=== PATIENT | female | born 1950 | race Caucasian/White ===

== ENCOUNTER → 2017-05-31 09:47 | Outpatient (CLI) | payer MEDICARE, SELFPAY ==
--- NOTE | 2017-05-31 09:57 | RAD_ITS ---
STUDY: X-RAY - LEFT KNEE REASON FOR EXAM: Female, 66 years old. polyosteoarthritis TECHNIQUE: 4 view(s) of the knee. COMPARISON: None. FINDINGS: Normal visualized distal femur. Normal visualized proximal tibia and fibula. Normal proximal tibiofibular articulation. Normal medial femorotibial compartment. There is mild degenerative arthrosis of the lateral femorotibial compartment. There is mild degenerative arthrosis of the patellofemoral articulation. There is a soft tissue prominence in the suprapatellar region suggesting a small volume joint effusion. Calcified opacities are seen at the posterior aspect of the knee joint suggesting intra-articular loose body largest measures approximately 9 mm. The soft tissue structures are unremarkable. RAD/Knee 4 or More Views IMPRESSION: Effusion, as described above. Calcified opacities are seen at the posterior aspect of the knee joint suggesting intra-articular loose body largest measures approximately 9 mm. Electronically Signed: Joe Norris MD at 1:21 EDT Tel , Service support ,
[2017-05-31 12:15] LABS: Absolute Lymphocyte Count 2.27 X10^3/ul (0.83-4.51); Absolute Neutrophil Count 4.2 X10^3/uL (2.0-7.7); Basophil# 0.03 X10^3/uL; Basophil% 0.4 % (0-1); Eosinophils% 2.8 % (0-5); Hematocrit 42.5 % (37-47); Hemoglobin 13.7 g/dl (12.0-15.0); Lymphocyte # 2.27 X10^3/ul (4.0); Lymphocyte % 31.4 % (19-41); Mean Corp Hgb Conc 32.2 g/gl (32-36); Mean Corpuscular Hgb 30.5 pg (27.0-32.0); Mean Corpuscular Volume 94.7 fL (81-99); Monocyte# 0.49 X10^3/uL; Monocyte% 6.8 % (0-10); Neutrophil # 4.24 X10^3/uL (2.7-7.7); Neutrophil % 58.6 % (47-70); Platelet Count 317 K/mm3 (150-450); RBC Distribution Width CV 13.4 % (11.6-14.6); RBC Distribution Width SD 46.4 fl (35.1-43.9); Red Blood Count 4.49 M/mm3 (4.2-5.4); White Blood Count 7.2 K/mm3 (4.4-11.0)
[2017-05-31 12:16] LABS: POSITIVE COUNT NO; POSITIVE DIFFERENTIAL NO; POSITIVE MORPHOLOGY NO
[2017-05-31 12:30] LABS: Erythrocyte Sedimentation Rate 6 mm/hr (0-30)
[2017-05-31 12:42] LABS: AST(SGOT) 17 U/L (15-37); Alanine Aminotransfer ALT/SGPT 22 U/L (13-56); Albumin, Serum 3.8 g/dL (3.2-5.0); Alkaline Phosphatase 52 U/L (45-117); Anion Gap 8 (5-15); BUN 12 mg/dL (7-18); CRP 5.34 mg/L (0.0-3.0); Chloride 106 mmol/L (98-107); Creatinine, Serum 0.67 mg/dL (0.55-1.02); EST Glomerular Filtration Rate 93 mL/min (>60); Est Glom Filt Rate - Afr Amer 113 mL/min (>60); Globulin 3.9 g/dL (2.2-4.2); Glucose 85 mg/dL (74-106); Potassium 3.7 mmol/L (3.5-5.1); Protein, Total 7.7 g/dL (6.4-8.2); Rheumatoid Factor < 10.0 IU/mL (<15); Sodium Level 143 mmol/L (136-145)
[2017-06-01 14:07] LABS: SJOGREN'S Anti-SS-A test < 0.2 AI (0.0-0.9); SJOGREN'S Anti-SS-B test < 0.2 AI (0.0-0.9)
[2017-06-01 18:26] LABS: ANTINUCLEAR ANTIBODIES DIRECT Negative (Negative)
[2017-06-03 11:18] LABS: CCP IgG Antibodies 3 units (0-19)
== END ==
PROVIDERS: Family Provider Family Medicine; PCP Family Medicine; Visit Provider Internal Medicine Rheumatology
DX: M35.00 Sjogren syndrome, unspecified (principal); M15.9 Polyosteoarthritis, unspecified; M17.12 Unilateral primary osteoarthritis, left knee; K21.9 Gastro-esophageal reflux disease without esophagitis; I10 Essential (primary) hypertension; F32.89 Other specified depressive episodes
CPT/HCPCS: 36415; 73564; 80053; 85025; 85652; 86038; 86140; 86200; 86235; 86431

== ENCOUNTER → 2017-06-24 15:53 | Outpatient (CLI) | payer MEDICARE, SELFPAY | PROVIDERS: Family Provider Family Medicine; PCP Family Medicine; Visit Provider Otolaryngology Otolaryngology/Facial Plastic Surgery | DX: J32.9 Chronic sinusitis, unspecified (principal) | CPT/HCPCS: 87070; 87077; 87186; 87205 ==

== ENCOUNTER → 2017-07-12 06:38 | Outpatient (CLI) | payer MEDICARE, SELFPAY ==
--- NOTE | 2017-07-12 06:42 | CT_ITS ---
STUDY: CT MAXILLOFACIAL SINUSES REASON FOR EXAM: Female, 67 years old. Sinusitis. RADIATION DOSAGE (If Supplied By Facility): CTDIvol = ( 33.06 ) mGy, DLP = ( 817.32 ) mGycm TECHNIQUE: The patient was scanned in a multi detector CT scanner. High resolution axial imaging was performed without the administration of intravenous contrast material. Sagittal and coronal images were reconstructed. Individualized dose optimization techniques were used for this CT. COMPARISON: None. FINDINGS: FRONTAL SINUSES: Normal aeration, without mucosal inflammatory disease. ETHMOIDAL SINUSES: Normal aeration, without mucosal inflammatory disease. MAXILLARY SINUSES: Mild degree of mucosal thickening along the lateral wall of the right maxillary sinus. SPHENOIDAL SINUSES: Normal aeration, without mucosal inflammatory disease. There is patency of the bilateral maxillary infundibuli with normal uncinate processes, ethmoid bullae, and hiatus semilunaris. Normal bilateral middle turbinates. Normal bilateral inferior turbinates. Normal midline nasal septum. There is patency of the bilateral nasal airways. The visualized osseous structures are normal. The visualized bilateral orbital contents are normal. CT/Sinus/Facial Bone IMPRESSION: Mild degree of mucosal thickening of the right maxillary sinus. Electronically Signed: Alberto French MD at 8:53 EDT Tel [phone], Service support ,
== END ==
PROVIDERS: Family Provider Family Medicine; PCP Family Medicine; Visit Provider Otolaryngology Otolaryngology/Facial Plastic Surgery
DX: J32.9 Chronic sinusitis, unspecified (principal)
CPT/HCPCS: 70486

== ENCOUNTER → 2019-09-24 12:32 | Outpatient (CLI) | payer MEDICARE, SELFPAY ==
--- NOTE | 2019-09-24 12:35 | RAD_ITS ---
STUDY: X-RAY - LUMBAR SPINE REASON FOR EXAM: Female, 69 years old. Low back pain TECHNIQUE: AP and lateral view(s) of the lumbar spine were obtained. COMPARISON: None FINDINGS: Normal lumbar lordosis. There is no substantial scoliosis. There is a normal alignment of the vertebrae. There is diffuse demineralization with multi-level endplate spondylosis. There is multi-level degenerative disc disease with multi-level disc space narrowing. The patient is status post left hip replacement. The soft tissue structures are unremarkable. RAD/Lumbar Spine 2 or 3 Views IMPRESSION: Degenerative changes of the spine, as detailed above. Electronically Signed: Alberto French, at 15:46 EDT , Service support ,
== END ==
PROVIDERS: PCP Family Medicine; Referring Provider Anesthesiology Pain Medicine; Visit Provider Anesthesiology Pain Medicine
DX: M54.5 Low back pain (principal)
CPT/HCPCS: 72100

== ENCOUNTER → 2019-10-08 10:43 | Outpatient (CLI) | payer MEDICARE, SELFPAY ==
--- NOTE | 2019-10-08 11:04 | MRI_ITS ---
STUDY: MRI LUMBAR SPINE WITHOUT CONTRAST REASON FOR EXAM: Female, 69 years old. pain across low back , no leg pain x 3 months TECHNIQUE: Standardized fat and water weighted pulse sequences were obtained in the sagittal and axial planes. COMPARISON: X-ray 1020 FINDINGS: T12-L1: Normal endplates. Normal disc height, hydration and morphology. Normal bilateral facet joints. Normal central canal and bilateral lateral recesses. Normal bilateral intervertebral neural foramina. Normal lumbar lordosis. There is no substantial scoliosis. Normal conus medullaris that terminates at the L1. L1-2: Mild bilobed disc protrusion produces mild spinal stenosis and mild left neural foraminal stenosis. L2-3: Moderate bilobed disc protrusion produces moderate spinal stenosis with moderate bilateral lateral recess stenosis with abutment of the L3 nerve roots bilaterally and mild bilateral neural foraminal stenosis. L3-4: Mild bilateral facet hypertrophy with fluid in the facet joints consistent with instability and mild ligament flavum hypertrophy. Moderate broad disc protrusion produces moderate spinal stenosis with moderate bilateral lateral recess stenosis with abutment of the L4 nerve roots bilaterally and mild bilateral neural foraminal stenosis. L4-5: Mild bilateral facet hypertrophy and ligament flavum hypertrophy. Mild broad disc protrusion produces mild spinal stenosis with mild bilateral lateral recess stenosis and mild bilateral neural foraminal stenosis. L5-S1: Normal endplates. Normal disc height, hydration and morphology. Normal bilateral facet joints. Normal central canal and bilateral lateral recesses. Normal bilateral intervertebral neural foramina. Normal visualized sacral ala. Normal visualized paraspinous soft tissue structures. MRI/Spine Lumbar (Routine) IMPRESSION: Multilevel degenerative changes, as described above. Electronically Signed: Carlton Pierre MD at 12:37 EDT Tel , Service support ,
== END ==
PROVIDERS: PCP Family Medicine; Referring Provider Anesthesiology Pain Medicine; Visit Provider Anesthesiology Pain Medicine
DX: M54.9 Dorsalgia, unspecified (principal); M79.606 Pain in leg, unspecified
CPT/HCPCS: 72148

== ENCOUNTER → 2020-04-07 | Outpatient (CLI) | payer MEDICARE, SELFPAY | END | disposition home or self-care (01) | LOC: LABSPEC 15:20 | PROVIDERS: PCP Family Medicine; Referring Provider Otolaryngology Otolaryngology/Facial Plastic Surgery; Visit Provider Otolaryngology Otolaryngology/Facial Plastic Surgery | DX: J32.9 Chronic sinusitis, unspecified (principal) | CPT/HCPCS: 87070; 87205 ==

== ENCOUNTER → 2020-04-14 06:29 | Outpatient (CLI) | payer MEDICARE, SELFPAY ==
--- NOTE | 2020-04-14 06:32 | CT_ITS ---
STUDY: CT MAXILLOFACIAL SINUSES REASON FOR EXAM: Female, 69 years old. SINUSITIUS, BILAT MAXILLARY/FRONTAL PAIN AND PRESSURE, HTN, NO PREV SINUS SURG RADIATION DOSAGE (If Supplied By Facility): CTDIvol = ( 33.06 ) mGy, DLP = ( 697.49 ) mGycm TECHNIQUE: The patient was scanned in a multi detector CT scanner. High resolution axial imaging was performed without the administration of intravenous contrast material. Sagittal and coronal images were reconstructed. Individualized dose optimization techniques were used for this CT. COMPARISON: None. FINDINGS: FRONTAL SINUSES: Normal aeration, without mucosal inflammatory disease. ETHMOIDAL SINUSES: Normal aeration, without mucosal inflammatory disease. MAXILLARY SINUSES: Normal aeration, without mucosal inflammatory disease. SPHENOIDAL SINUSES: Normal aeration, without mucosal inflammatory disease. There is patency of the bilateral maxillary infundibuli with normal uncinate processes, and hiatus semilunaris. Normal bilateral middle turbinates. Normal bilateral inferior turbinates. There is mild septal deviation to the right without a spur. There is patency of the bilateral nasal airways. CT/Sinus/Facial Bone IMPRESSION: The sinuses are clear. Electronically Signed: Leslie Hdz MD at 8:10 EST Tel , Service support ,
== END ==
PROVIDERS: PCP Family Medicine; Referring Provider Otolaryngology Otolaryngology/Facial Plastic Surgery; Visit Provider Otolaryngology Otolaryngology/Facial Plastic Surgery
DX: J32.9 Chronic sinusitis, unspecified (principal)
CPT/HCPCS: 70486

== ENCOUNTER 2021-02-17 12:14 | Outpatient (CLI) | payer MEDICARE, SELFPAY ==
[2021-02-17 14:30] LABS: CRP 3.08 mg/L (0.0-3.0); LDH 220 U/L (84-246)
[2021-02-22 04:06] LABS: Cytoplasmic Ab (C-ANCA) <1:20 titer (Neg:<1:20); Endomysial Antibody IgA Negative (Negative); Immunoglobulin A 145 mg/dL (64-422); Immunoglobulin E 25 IU/mL (6-495); Immunoglobulin G 1128 mg/dL (586-1602)
[2021-02-22 08:01] LABS: Gastrin, Serum 152 pg/mL (0-115); Immunoglobulin M 169 mg/dL (26-217); Perinuclear Ab (P-ANCA) <1:20 titer (Neg:<1:20); t-Transglutaminase IgA <2 U/mL (0-3)
== END 2021-02-17 23:59 | disposition short-term general hospital (02) ==
LOC: LAB 12:17
PROVIDERS: Referring Provider Internal Medicine Gastroenterology; Visit Provider Internal Medicine Gastroenterology
DX: R61 Generalized hyperhidrosis (principal); R19.7 Diarrhea, unspecified
CPT/HCPCS: 36415; 82784; 82785; 82941; 83516; 83615; 86140; 86255; 86256

== ENCOUNTER 2021-02-19 10:31 | Outpatient (CLI) | payer MEDICARE, SELFPAY ==
[2021-02-20 21:45] LABS: Calprotectin, Stool 90 ug/g (0-120); Giardia Lamblia, Stool EIA Negative (Negative)
== END 2021-02-19 23:59 | disposition short-term general hospital (02) ==
LOC: LAB 10:33
PROVIDERS: Visit Provider Nurse Practitioner Adult Health
DX: R19.7 Diarrhea, unspecified (principal)
CPT/HCPCS: 83993; 87177; 87209; 87329; 87493; 87506

== ENCOUNTER 2021-03-24 10:42 | Day surgery (SDC) | payer MEDICARE, SELFPAY ==
[2021-03-24] VITALS (7 sets, daily range): BP systolic 105–154; BP diastolic 44–122; PULSE 58–70; RESP 16; TEMP 36.3–36.9; O2SAT 95–100; BMI 33.4
--- NOTE | 2021-03-24 | IMM_PTH ---
PATIENT: MORGAN SUAREZ LOC: [facility] U#:[id number] AGE/SX: 70/F ROOM: RE03/24/[address]: Dr. Tomas Álvarez DO : 1950 BED: DIS: 03/24/2021 SPEC #: [id number] RECD: 03/25/21 10:20 STATUS: MELISSA AMBERLY #: [id number] RENATO: 03/24/21 00:[address]: Tomas Álvarez DEPT: IMMUNOHISTOCHEMISTRY RECD BY: Gail Hodgson ENTERED: 03/25/21 10:25 SP TYPE: IMMUNO OTHR DR: SONIDO Jamil Tissues: B - Stomach, NOS Procedures: H Pylori (initial) PHYSICIAN & INSTITUTION [place] [id number] SPECIMEN INFORMATION: Tissue Source: B ? Gastric antrum Clinical Info: IBS, diarrhea Specimen Number: [id number] CPT code: 08005 METHODOLOGY: Deparaffinized sections of prefer/formalin-fixed tissue or PAP/DQ stained slides are incubated with monoclonal/polyclonal antibodies/oligonucleotide probes. Localization is made via biotin free immunoperoxidase method. Appropriate controls are performed and reacted as expected. Results on target cell population are indicated in the following table: RESULTS: ANTIBODY / CLONE RESULT Block B H Pylori (polyclonal) negative These tests were developed and their performance characteristics determined by [facility]. They may not have been cleared or approved by the [place]. Food and Drug Administration. The FDA has determined that such clearance or approval is not necessary. INTERPRETATION: B. Gastric antrum, biopsy: Negative for Helicobacter pylori organisms. SJ:emma 03/26/2021
[2021-03-24] MEDS: Lactated Ringers 1,000 ML 15 ML IV (11:15)
--- NOTE | 2021-03-24 12:00 | EGD_PTH ---
PATIENT: MORGAN SUAREZ LOC: [facility] U#:[id number] AGE/SX: 70/F ROOM: RE03/24/[address]: Dr. Tomas Álvarez DO : 1950 BED: DIS: 03/24/2021 SPEC #: [id number] RECD: 03/24/21 16:48 STATUS: MELISSA AMBERLY #: [id number] RENATO: 03/24/21 12:[address]: Tomas Álvarez DEPT: SURGICAL PATHOLOGY RECD BY: Jaquelin Tate ENTERED: 03/25/21 08:49 SP TYPE: EGD BIOPSY OT DR: SONIDO Jamil Tissues: A - Duodenum, NOS B - Gastric mucous membrane C - Gastric mucous membrane D - Esophagus, NOS E - Ileum, NOS F - COLON BIOPSY Procedures: Special Stain Group II Surgery Specimen Level IV Alcian Blue/PAS (control) HEADER OPERATION: Colonoscopy, EGD with biopsies ([facility] [place]) PRE-OP DIAGNOSIS: IBS, diarrhea TISSUE SUBMITTED: A ? Duodenum biopsy, B ? Gastric antrum for H. pylori and path, C ? Gastric body biopsy, D ? Distal esophagus biopsy, E ? Terminal ileum biopsy, F ? Random colon biopsy MICROSCOPIC DIAGNOSIS A. Duodenum, biopsy: Fragments of duodenal mucosa, no pathologic diagnosis. B. Gastric antrum, biopsy: Mild gastritis. See microscopic description and comment. C. Gastric body, biopsy: Mild gastritis. See microscopic description. D. Distal esophagus, biopsy: Fragments of gastroesophageal mucosa with chronic inflammation. Intestinal metaplasia (goblet cell metaplasia) is not identified. See comment. E. Terminal ileum, biopsy: Fragments of small intestinal mucosa, no pathologic diagnosis. See comment. F. Colon, random biopsy: Fragments of colonic mucosa, no pathologic diagnosis. SJ:emma 03/26/2021 COMMENT B. The results of immunohistochemistry for Helicobacter pylori will be reported separately ([id number]). D. Alcian blue/PAS stain with matched control is used in the evaluation of the specimen. The specimen predominantly consists of gastric mucosa. E. Prominent lymphoid aggregates are noted, favor benign. MICROSCOPIC DESCRIPTION Slides are reviewed. B & C. The specimen shows fragments of gastric mucosa with chronic inflammatory cell infiltrates in the lamina propria consisting of lymphocytes and plasma cells, consistent with mild chronic gastritis. GROSS DESCRIPTION A - Received in fixative is one container labeled with the patient's name and designated biopsy duodenum. The specimen consists of multiple irregular fragments of light bermudez soft tissue that in aggregate measure 1 x 0.3 x 0.1 cm. The specimen is totally submitted in one cassette. B - Received in fixative is one container labeled with the patient's name and designated biopsy gastric antrum. The specimen consists of multiple irregular fragments of light bermudez soft tissue that in aggregate measure 0.5 x 0.4 x 0.1 cm. The specimen is totally submitted in one cassette. C - Received in fixative is one container labeled with the patient's name and designated gastric body biopsy. The specimen consists of multiple irregular fragments of light bermudez soft tissue that in aggregate measure 1.3 x 0.3 x 0.1 cm. The specimen is totally submitted in one cassette. D - Received in fixative is one container labeled with the patient's name and designated biopsy distal esophagus. The specimen consists of two irregular fragments of light bermudez soft tissue that in aggregate measure 0.6 x 0.3 x 0.1 cm. The specimen is totally submitted in one cassette. E - Received in fixative is one container labeled with the patient's name and designated biopsy terminal ileum. The specimen consists of two irregular fragments of light bermudez soft tissue that in aggregate measure 0.4 x 0.3 x 0.1 cm. The specimen is totally submitted in one cassette. F - Received in fixative is one container labeled with the patient's name and designated biopsy random colon. The specimen consists of multiple irregular fragments of light bermudez soft tissue that in aggregate measure 1.5 x 0.5 x 0.1 cm. The specimen is totally submitted in one cassette. / SJ:rg 03/25/2021 TC:3 CPT: 69395 x6, 13693
--- NOTE | 2021-03-24 12:22 | PCM.HP.BLA ---
History and Physical Date of Admission: 03/24/21 70 F who presents to the office today for evaluation of diarrhea. She says it has been going on for the past 2 months. She is also having fecal urgency. She has not seen any blood in her stool. Her weight has been stable. However recently she started to having sweating during the day and the night which is becoming concerning to her. She has no family history of bowel issues. She denies any chest pain or shortness of breath. She does complain of some muscle weakness, arthritis and joint discomfort. She denies any recent rash. She is not had any antibiotics since she had her fundoplication. In May 2020 she had hiatal hernia surgery and this has been helpful. Since this time, she has been difficulty with diarrhea and stomach upset. Diarrhea occurs 1-3 times a day and is reported as foamy and yellow. Currently loperamide 4mg TID. Will also get spontaneously nauseous and was restarted omeprazole 40mg QD. Reports Cologuard recently but no stool testing for infection. Unknown of last EGD but thinks it was just prior to surgery. Additional history included acquired hypothyroidism, depression, anxiety, insomnia, HTN, GERD, Gout, Sjogrens. ROS Const Constitutional: Positive for fatigue, frequent falls, weakness and weight change ENT ENT: Positive for nasal congestion and difficulty swallowing Gastro GI: Positive for abdominal pain, bloating, change in bowel habits, diarrhea, difficulty swallowing and nausea/dyspepsia Musc Musculoskeletal: Positive for joint pain, back pain, muscle weakness and Arthritis Neuro Neurology: Positive for weakness and frequent falls Endo Endocrine: Positive for fatigue and weight change Exam Const General: cooperative and comfortable Nutritional Appearance: average body habitus and well nourished [facility] Head: normal to inspection Ears: hearing grossly normal bilaterally Nose: external nose normal Face and sinus: normal facial exam Mouth: oral mucosae normal Throat: posterior oropharynx normal Eyes General: appearance normal, both eyes and all related structures Neck Neck: normal visual inspection Chest Chest palpation & inspection: normal inspection of the chest and normal palpation of entire chest wall Resp Effort & Inspection: normal respiratory effort Auscultation: Bilateral: Clear to Auscultation Cardio Palpation: normal PMI Rate: regular rate Rhythm: regular rhythm GI Inspection: normal to inspection Auscultation: normal bowel sounds Percussion: normal to percussion Palpation: no hepatosplenomegaly Skin General: no rashes or lesions noted Neuro General: patient alert Extrem General: normal to inspection Psych Affect: normal affect Assessment and Plan Assessment and Plan (1) Irritable bowel syndrome: Plan - Dr. Tomas Álvarez, DO: She carries a diagnosis of irritable bowel syndrome. However she has not had any episodes of diarrhea lasting for more than a day. This is most persistent for 2 months and it is getting progressively worse. (2) Diarrhea: Status: Acute Orders: Orders: Colonoscopy Today Dr. Tomas Álvarez, DO EGD Today Dr. Tomas Álvarez DO CDIFF (PCR) Today Laurence Verduzco SUPERVISOR SAMPLE, SUPERVISOR SAMPLE-C ENTERIC PATHOGEN PANEL STOOL Today Laurence Verduzco SUPERVISOR SAMPLE, SUPERVISOR SAMPLE-C CRP Today Dr. Tomas Álvarez, DO LDH Today Dr. Tomas Álvarez DO ANCA Today Dr. Tomas Álvarez, DO Celiac Disease Profile Today Dr. Tomas Álvarez DO Gastrin, Serum Today Dr. Tomas Álvarez DO Immunoglobulin E Today Dr. Tomas Álvarez DO Immunoglobulin G Today Dr. Tomas Álvarez, DO Immunoglobulin M Today Dr. Tomas Álvarez, DO Calprotectin, Stool Today Laurence Verduzco SUPERVISOR SAMPLE, SUPERVISOR SAMPLE-C Ova and Parasites 8623 Today Laurence Verduzco SUPERVISOR SAMPLE, SUPERVISOR SAMPLE-C Giardia Lamblia, Stool EIA Today Laurence Verduzco SUPERVISOR SAMPLE, SUPERVISOR SAMPLE-C Plan - Dr. Tomas Álvarez DO: We will do a biochemical is in his stool also is for infectious, secretory and osmotic diarrhea. We will perform an upper and lower endoscopy to see if there is any signs of inflammatory bowel disease, ischemic disease or chronic blood loss that will be leading to diarrhea. (3) Night sweats: Status: Acute Orders: Orders: CRP Today Dr. Tomas Álvarez, DO LDH Today Dr. Tomas Álvarez DO ANCA Today Dr. Tomas Álvarez, DO Celiac Disease Profile Today Dr. Tomas Álvarez, DO Gastrin, Serum Today Dr. Tomas Álvarez, DO Immunoglobulin E Today Dr. Tomas Álvarez, DO Immunoglobulin G Today Dr. Tomas Álvarez, DO Immunoglobulin M Today Dr. Tomas Álvarez DO Plan - Dr. Tomas Álvarez DO: We will check an LDH check. Likely she will need a CT scan of the chest and abdomen pelvis for further evaluation. Plan Details Other Medications: New: [id number] 140-9-5.2 gram (Plenvu) take as directed for bowel prep PO; [address] Marin Friend, DO I have re-examined the patient. There are no clinical changes since date of exam.
--- NOTE | 2021-03-24 12:38 | OP.CCLET_ITS ---
11/02/2021 Jason Jamil Re : Upper GI endoscopy procedure for Shari Simmons Dear Mamadou This procedure was performed on Wednesday, March 24, 2021. My impressions and recommendations are as follows: Impressions : - LA Grade A reflux esophagitis. Rule out Davis's esophagus. Biopsied. - Gastritis. Biopsied. - Normal second portion of the duodenum. Biopsied. Recommendations : - Discharge patient to home. - Resume previous diet. - Continue present medications. - Await pathology results. - Repeat upper endoscopy in 1 year for surveillance. - Return to GI office. My findings are described in the full procedure note, which is enclosed. If I can be of further assistance, please feel free to contact me at . Sincerely, Tomas Álvarez, 03/24/2021 12:37:31 PM This report has been signed electronically.
--- NOTE | 2021-03-24 12:38 | OP.EGD_ITS ---
Patient Name: Shari Simmons Procedure Date: 03/24/2021 11:54 AM Date of : 1950 Age: 70 Procedure: Upper GI endoscopy Indications: Epigastric abdominal pain Providers: Tomas Álvarez DO Referring MD: Jason Jamil Medicines: See the Anesthesia note for documentation of the administered medications Patient Profile: This is a 70 year old female. Refer to note in patient chart for documentation of history and physical. Patient has symptoms of chronic abdominal cramping and acute epigastric abdominal pain. Complications: No immediate complications. Procedure: Pre-Anesthesia Assessment: - Prior to the procedure, a History and Physical was performed, and patient medications and allergies were reviewed. The risks and benefits of the procedure and the sedation options and risks were discussed with the patient. All questions were answered and informed consent was obtained. Patient identification and proposed procedure were verified by the physician in the pre-procedure area. Mental Status Examination: alert and oriented. Airway Examination: normal oropharyngeal airway and neck mobility. Respiratory Examination: clear to auscultation. CV Examination: normal. Prophylactic Antibiotics: The patient does not require prophylactic antibiotics. Prior Anticoagulants: The patient has taken no previous anticoagulant or antiplatelet agents. ASA Grade Assessment: II - A patient with mild systemic disease. After reviewing the risks and benefits, the patient was deemed in satisfactory condition to undergo the procedure. The anesthesia plan was to use moderate sedation / analgesia (conscious sedation). Immediately prior to administration of medications, the patient was re-assessed for adequacy to receive sedatives. The heart rate, respiratory rate, oxygen saturations, blood pressure, adequacy of pulmonary ventilation, and response to care were monitored throughout the procedure. The physical status of the patient was re-assessed after the procedure. After obtaining informed consent, the endoscope was passed under direct vision. Throughout the procedure, the patient's blood pressure, pulse, and oxygen saturations were monitored continuously. The gastroscope was introduced through the mouth, and advanced to the second part of duodenum. The upper GI endoscopy was accomplished without difficulty. The patient tolerated the procedure well. Moderate Sedation: Moderate (conscious) sedation was administered by the endoscopy nurse and supervised by the endoscopist. The following parameters were monitored: oxygen saturation, heart rate, blood pressure, and response to care. Total physician intraservice time was 2 minutes. Scope In: 12:26:55 PM Scope Out: 12:34:00 PM Total Procedure Duration Time 0 hours 7 minutes 5 seconds Findings: LA Grade A (one or more mucosal breaks less than 5 mm, not extending between tops of 2 mucosal folds) esophagitis with no bleeding was found 34 to 35 cm from the incisors. Biopsies were taken with a cold forceps for histology. Verification of patient identification for the specimen was done. Estimated blood loss was minimal. Scattered mild inflammation characterized by congestion (edema) and erythema was found in the gastric body and in the gastric antrum. Biopsies were taken with a cold forceps for histology. Verification of patient identification for the specimen was done. Estimated blood loss was minimal. The second portion of the duodenum was normal. Biopsies were taken with a cold forceps for histology. Verification of patient identification for the specimen was done. Estimated blood loss was minimal. Impression: - LA Grade A reflux esophagitis. Rule out Davis's esophagus. Biopsied. - Gastritis. Biopsied. - Normal second portion of the duodenum. Biopsied. Recommendation: - Discharge patient to home. - Resume previous diet. - Continue present medications. - Await pathology results. - Repeat upper endoscopy in 1 year for surveillance. - Return to GI office. Procedure Code(s): --- Professional --- 55700, Esophagogastroduodenoscopy, flexible, transoral; with biopsy, single or multiple CPT copyright 2017 [employer]. All rights reserved. The codes documented in this report are preliminary and upon member of parliament review may be revised to meet current compliance requirements. Tomas Álvarez DO 03/24/2021 12:37:31 PM This report has been signed electronically. Number of Addenda: 1 Note Initiated On: 03/24/2021 11:54 AM Addendum Number: 1 Addendum Date: 11/02/2021 6:53:24 AM MAC was used for sedation during this procedure. Tomas Álvarez DO 11/02/2021 6:53:31 AM This report has been signed electronically.
--- NOTE | 2021-03-24 13:11 | OP.CCLET_ITS ---
11/02/2021 Jason Jamil Re : Colonoscopy procedure for Shari Simmons Dear Mamadou This procedure was performed on Wednesday, March 24, 2021. My impressions and recommendations are as follows: Impressions : - Congested mucosa in the cecum. - Congested mucosa in the recto-sigmoid colon, in the descending colon and in the ascending colon. Biopsied. - Diverticulosis in the recto-sigmoid colon and in the sigmoid colon. There was no evidence of diverticular bleeding. - Congested mucosa in the terminal ileum. Biopsied. Recommendations : - Written discharge instructions were provided to the patient. - The signs and symptoms of potential delayed complications were discussed with the patient. - Patient has a contact number available for emergencies. - Return to normal activities tomorrow. - Resume previous diet. - Continue present medications. - Await pathology results. - Return to my office. - Repeat colonoscopy is recommended for surveillance. The colonoscopy date will be determined after pathology results from today's exam become available for review. My findings are described in the full procedure note, which is enclosed. If I can be of further assistance, please feel free to contact me at . Sincerely, Tomas Álvarez, 03/24/2021 1:11:00 PM This report has been signed electronically.
--- NOTE | 2021-03-24 13:11 | OP.COLON_ITS ---
Patient Name: Shari Simmons Procedure Date: 03/24/2021 12:36 PM Date of : 1950 Age: 70 Procedure: Colonoscopy Indications: Clinically significant diarrhea of unexplained origin Providers: Tomas Álvarez DO Referring MD: Jason Jamil Medicines: See the Anesthesia note for documentation of the administered medications Patient Profile: This is a 70 year old female. Refer to note in patient chart for documentation of history and physical. Patient has symptoms of chronic abdominal cramping and acute epigastric abdominal pain. Last Colonoscopy: date unknown. Unable to locate last colonoscopy report. Complications: No immediate complications. Procedure: Pre-Anesthesia Assessment: - Prior to the procedure, a History and Physical was performed, and patient medications and allergies were reviewed. The risks and benefits of the procedure and the sedation options and risks were discussed with the patient. All questions were answered and informed consent was obtained. Patient identification and proposed procedure were verified by the physician in the pre-procedure area. Mental Status Examination: alert and oriented. Airway Examination: normal oropharyngeal airway and neck mobility. Respiratory Examination: clear to auscultation. CV Examination: normal. Prophylactic Antibiotics: The patient does not require prophylactic antibiotics. Prior Anticoagulants: The patient has taken no previous anticoagulant or antiplatelet agents. ASA Grade Assessment: II - A patient with mild systemic disease. After reviewing the risks and benefits, the patient was deemed in satisfactory condition to undergo the procedure. The anesthesia plan was to use moderate sedation / analgesia (conscious sedation). Immediately prior to administration of medications, the patient was re-assessed for adequacy to receive sedatives. The heart rate, respiratory rate, oxygen saturations, blood pressure, adequacy of pulmonary ventilation, and response to care were monitored throughout the procedure. The physical status of the patient was re-assessed after the procedure. After I obtained informed consent, the scope was passed under direct vision. Throughout the procedure, the patient's blood pressure, pulse, and oxygen saturations were monitored continuously. The pediatric colonoscope was introduced through the anus and advanced to the terminal ileum. The colonoscopy was performed without difficulty. The patient tolerated the procedure well. The quality of the bowel preparation was good. Moderate Sedation: Moderate (conscious) sedation was administered by the endoscopy nurse and supervised by the endoscopist. The patient's oxygen saturation, heart rate, blood pressure and response to care were monitored. Total physician intraservice time was 15 minutes. Moderate (conscious) sedation was administered by the endoscopy nurse and supervised by the endoscopist. The following parameters were monitored: oxygen saturation, heart rate, blood pressure, and response to care. Total physician intraservice time was 15 minutes. Scope In: 12:39:42 PM Scope Withdrawal Time 0 hours 18 minutes 55 seconds Scope Out: 1:03:26 PM Total Procedure Duration Time 0 hours 23 minutes 44 seconds Findings: The perianal and digital rectal examinations were normal. An area of congested mucosa was found in the cecum. An area of mildly congested mucosa was found in the recto-sigmoid colon, in the descending colon and in the ascending colon. Biopsies were taken with a cold forceps for histology. Verification of patient identification for the specimen was done. Estimated blood loss was minimal. Multiple small and large-mouthed diverticula were found in the recto-sigmoid colon and sigmoid colon. There was no evidence of diverticular bleeding. A scattered area of the terminal ileum was congested. Biopsies were taken with a cold forceps for histology. Verification of patient identification for the specimen was done. Estimated blood loss was minimal. Impression: - Congested mucosa in the cecum. - Congested mucosa in the recto-sigmoid colon, in the descending colon and in the ascending colon. Biopsied. - Diverticulosis in the recto-sigmoid colon and in the sigmoid colon. There was no evidence of diverticular bleeding. - Congested mucosa in the terminal ileum. Biopsied. Recommendation: - Written discharge instructions were provided to the patient. - The signs and symptoms of potential delayed complications were discussed with the patient. - Patient has a contact number available for emergencies. - Return to normal activities tomorrow. - Resume previous diet. - Continue present medications. - Await pathology results. - Return to my office. - Repeat colonoscopy is recommended for surveillance. The colonoscopy date will be determined after pathology results from today's exam become available for review. Procedure Code(s): --- Professional --- 97612, Colonoscopy, flexible; with biopsy, single or multiple 07863, 59, Moderate sedation services provided by the same physician or other qualified health care provider performing the diagnostic or therapeutic service that the sedation supports, requiring the presence of an independent trained observer to assist in the monitoring of the patient's level of consciousness and physiological status; initial 15 minutes of intraservice time, patient age 5 years or older 45548, 59, Moderate sedation services provided by the same physician or other qualified health care provider performing the diagnostic or therapeutic service that the sedation supports, requiring the presence of an independent trained observer to assist in the monitoring of the patient's level of consciousness and physiological status; initial 15 minutes of intraservice time, patient age 5 years or older CPT copyright 2017 [employer]. All rights reserved. The codes documented in this report are preliminary and upon neonatal nurse practitioner review may be revised to meet current compliance requirements. Tomas Álvarez DO 03/24/2021 1:11:00 PM This report has been signed electronically. Number of Addenda: 1 Note Initiated On: 03/24/2021 12:36 PM Addendum Number: 1 Addendum Date: 11/02/2021 6:53:38 AM MAC was used for sedation during this procedure. Tomas Álvarez DO 11/02/2021 6:53:42 AM This report has been signed electronically.
== END 2021-03-24 23:59 | disposition home or self-care (01) ==
LOC: EN 10:42 → AC 10:43
PROVIDERS: Visit Provider Internal Medicine Gastroenterology
PROC: 0DJD8ZZ Inspection of Lower Intestinal Tract, Via Natural or Artificial Opening Endoscopic (ICD-10-PCS; CPT 45378; principal; 2021-03-24 11:55)
DX: K29.70 Gastritis, unspecified, without bleeding (principal); K57.30 Diverticulosis of large intestine without perforation or abscess without bleeding; K22.70 Barrett's esophagus without dysplasia; K21.00 Gastro-esophageal reflux disease with esophagitis, without bleeding; K58.9 Irritable bowel syndrome, unspecified; M19.90 Unspecified osteoarthritis, unspecified site; I10 Essential (primary) hypertension; Z79.899 Other long term (current) drug therapy
CPT/HCPCS: 45380; 43239; 88305; 88313; 88342; J7120; J2405

== ENCOUNTER 2021-04-09 10:52 | Outpatient (CLI) | payer MEDICARE, SELFPAY ==
[2021-04-10 11:27] LABS: Immunoglobulin A 138 mg/dL (64-422)
[2021-04-10 17:07] LABS: Endomysial Antibody IgA Negative (Negative)
[2021-04-10 17:28] LABS: Deamidated Gliadin IgA 5 units (0-19); Deamidated Gliadin IgG 2 units (0-19); Immunoglobulin A 136 mg/dL (64-422); t-Transglutaminase IgA <2 U/mL (0-3)
[2021-04-12 13:36] LABS: H. PYLORI STOOL AG Negative (Negative)
[2021-04-13 20:22] LABS: Fats, Neutral Normal (.); Fats, Total Normal (.)
== END 2021-04-09 23:59 | disposition home or self-care (01) ==
PROVIDERS: Referring Provider Internal Medicine Gastroenterology; Visit Provider Internal Medicine Gastroenterology
DX: K29.60 Other gastritis without bleeding (principal); R19.7 Diarrhea, unspecified
CPT/HCPCS: 36415; 82705; 82784; 83516; 86255

== ENCOUNTER → 2021-06-12 | Outpatient (CLI) | payer MEDICARE, SELFPAY ==
--- NOTE | 2021-06-12 08:18 | CT_ITS ---
STUDY: CT ABDOMEN WITH AND WITHOUT CONTRAST REASON FOR EXAM: Female, 71 years old. Pancreatic insuffiencey and diarrhea -- CT with pancreatic protocol RADIATION DOSAGE (If Supplied By Facility): CTDIvol = ( 19.14 ) mGy, DLP = ( 1390.03 ) mGycm TECHNIQUE: Transaxial images were obtained pre and post I.V. administration of Oral and amp; IV Readi-CAT and amp; 100mL Isovue-370, and oral contrast. Sagittal and coronal images were reconstructed. Individualized dose optimization techniques were used for this CT. COMPARISON: None. FINDINGS: The visualized lung bases are unremarkable. The visualized portions of the heart are within normal limits. There is decreased attenuation of the liver consistent with steatosis. The patient is status post cholecystectomy. Normal spleen. Normal pancreas. Normal bilateral adrenal glands. Normal right kidney. Normal left kidney. There is a small hiatal hernia. Normal small intestine. Normal colon. The appendix is visualized and appears normal. There is diffuse atherosclerotic calcification of the abdominal aorta and its major visceral branches, without a demonstrated aneurysm. Normal inferior vena cava. Normal retroperitoneum. There is a small umbilical hernia containing fat. There are mild degenerative changes of the visualized lumbar spine. CT/Abdomen W/WO IV Contrast IMPRESSION: The patient is status post cholecystectomy and hysterectomy. Fatty infiltration of the liver. Electronically Signed: Alberto French MD at 10:55 EDT ,
[2021-06-12 10:10] LABS: CREATININE FINGERSTICK 0.6 mg/dL (0.55-1.02); EGFR FINGERSTICK > 60.0000 mL/min (>60)
== END | disposition home or self-care (01) ==
LOC: CT 08:16
PROVIDERS: Referring Provider Internal Medicine Gastroenterology; Visit Provider Internal Medicine Gastroenterology
DX: R19.7 Diarrhea, unspecified (principal)
CPT/HCPCS: 74170; Q9967

== ENCOUNTER → 2021-09-16 | Outpatient (CLI) | payer MEDICARE, SELFPAY ==
[2021-09-16 08:34] LABS: Erythrocyte Sedimentation Rate 13 mm/hr (0-30)
[2021-09-16 08:36] LABS: Absolute Lymphocyte Count 2.18 X10^3/uL (0.83-4.51); Absolute Neutrophil Count 3.3 X10^3/uL (2.0-7.7); Basophil# 0.08 X10^3/uL; Basophil% 1.3 % (0-1); Eosinophil# 0.22 X10^3/uL; Eosinophils% 3.4 % (0-5); Hematocrit 38.7 % (37-47); Hemoglobin 12.5 g/dL (12.0-15.0); Lymphocyte # 2.18 X10^3/ul (0.83-4.51); Lymphocyte % 34.1 % (19-41); Mean Corp Hgb Conc 32.3 g/dL (32-36); Mean Corpuscular Hgb 30.4 pg (27.0-32.0); Mean Corpuscular Volume 94.2 fL (81-99); Mean Platelet Vol. 10.9 fl (6.2-12.0); Monocyte% 9.4 % (0-10); NRBC Flagged by Analyzer 0 % (0-5); Neutrophil % 51.6 % (47-70); Platelet Count 327 K/mm3 (150-450); RBC Distribution Width CV 14.3 % (11.6-14.6); RBC Distribution Width SD 49.6 fl (35.1-43.9); Red Blood Count 4.11 M/mm3 (4.2-5.4); White Blood Count 6.4 K/mm3 (4.4-11.0)
[2021-09-16 08:54] LABS: ALB/GLOB Ratio 0.9 RATIO (0.9-2.4); AST(SGOT) 24 U/L (15-37); Alanine Aminotransfer ALT/SGPT 29 U/L (13-56); Albumin, Serum 3.4 g/dL (3.2-5.0); Alkaline Phosphatase 60 U/L (45-117); Anion Gap 4 (5-15); BUN 17 mg/dL (7-18); BUN/Creat Ratio 24.5 RATIO (10-20); CRP 3.33 mg/L (0.0-3.0); Calcium,Total 8.7 mg/dL (8.5-10.1); Chloride 106 mmol/L (98-107); EST Glomerular Filtration Rate 88 mL/min (>60); Est Glom Filt Rate - Afr Amer 106 mL/min (>60); Globulin 3.7 g/dL (2.2-4.2); Glucose 74 mg/dL (74-106); LDH 201 U/L (84-246); Potassium 3.6 mmol/L (3.5-5.1); Protein, Total 7.1 g/dL (6.4-8.2); Sodium Level 140 mmol/L (136-145)
[2021-09-17 13:08] LABS: Anti-Centromere B Ab <0.2 AI (0.0-0.9); Anti-Chromatin <0.2 AI (0.0-0.9); Anti-Jo <0.2 AI (0.0-0.9); Anti-Scleroderma-70 AB 0.3 AI (0.0-0.9); RNP Ab <0.2 AI (0.0-0.9); SJOGREN'S Anti-SS-A test < 0.2 AI (0.0-0.9); SJOGREN'S Anti-SS-B test < 0.2 AI (0.0-0.9); Smith Ab <0.2 AI (0.0-0.9)
[2021-09-17 16:27] LABS: Anti-dsDNA Ab 1 IU/mL (0-9)
[2021-09-18 16:09] LABS: Albumin 3.5 g/dL (2.9-4.4); Alpha-1-Globulins 0.3 g/dL (0.0-0.4); Alpha-2-Globulins 0.7 g/dL (0.4-1.0); Gamma Globulin 1.1 g/dL (0.4-1.8); Immunoglobulin A 134 mg/dL (64-422); Immunoglobulin G 972 mg/dL (586-1602); Immunoglobulin M 164 mg/dL (26-217); PROEL- TOTAL PROTEIN 6.6 g/dL (6.0-8.5)
[2021-09-18 16:44] LABS: Gastrin, Serum 26 pg/mL (0-115)
== END | disposition home or self-care (01) ==
LOC: LAB 07:43
PROVIDERS: Referring Provider Internal Medicine Gastroenterology; Visit Provider Internal Medicine Gastroenterology
DX: R19.7 Diarrhea, unspecified (principal)
CPT/HCPCS: 36415; 80053; 82784; 82941; 83615; 84165; 85025; 85652; 86140; 86225; 86235; 86334

== ENCOUNTER → 2021-09-17 | Outpatient (CLI) | payer MEDICARE, SELFPAY | END | disposition home or self-care (01) | LOC: LABSPEC 09:44 | PROVIDERS: Referring Provider Internal Medicine Gastroenterology; Visit Provider Internal Medicine Gastroenterology | DX: R19.7 Diarrhea, unspecified (principal) | CPT/HCPCS: 83630 ==

== ENCOUNTER 2021-12-28 11:28 | Outpatient (CLI) | payer MEDICARE, SELFPAY ==
--- NOTE | 2021-12-28 13:30 | ST.MBS ---
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 Medical History: Patient is a 71yo female w/ PMH including pancreatic insufficiency, lymphocytic gastritis, gastric reflux, hiatal hernia repair (2020) and hypertension. Patient reports having appt. w/ Dr. Álvarez next week. Her swallowing difficulty is characterized by sensation of food getting caught in the throat or upper esophagus. Patient and daughter report that occasionally the sensation will cause patient to gag, cough or choke. States no specific foods or drinks causes this swallowing difficulty. Patient states she tries to clear sensation w/ thin liquids which is somewhat effective. Current Diet Ordered: Regular textures / Thin liquids Dentition: WNL, Natural Teeth Mental Status: WNL Respiratory Status: Oxygenating on Room Air - Penetration-Aspiration Scale Penetration-Aspiration Scale: OBJECTIVE ASSESSMENT OF SWALLOW FUNCTION (QUANTITATIVE ? PER TRIAL): PENETRATION / ASPIRATION SCALE (MALAVE): 1 = does not enter airway 2 = enters airway/above vocal folds/ejected 3 = enters airway/above vocal folds/not ejected 4 = enters airway/contacts vocal folds/ejected 5 = enters airway/contacts vocal folds/not ejected 6 = enters airway/below vocal folds/ejected 7 = enters airway/below vocal folds/not ejected despite effort 8 = enters airway/below vocal folds/no effort VIDEOFLOROSCOPIC SCALE SCORE (MALAVE): Grade I = aspiration of material that has penetrated into the laryngeal vestibule, intact cough reflex Grade II = aspiration < 10 % of the bolus, intact cough reflex Grade III = aspiration of < 10 % of the bolus, reduced cough reflex or aspiration of > 10 % of the bolus, intact cough reflex Grade IV = aspiration of > 10 % of the bolus, reduced cough reflex - Penetration-Aspiration Scale Score Thin Liquid via teaspoon Result: 1= does not enter airway Thin Liquid via teaspoon Trial 2 Result: 1= does not enter airway Thin Liquid via large single sip from cup Result: 1= does not enter airway [place] Thick Liquid via large single sip from cup Result: 1= does not enter airway [place] Thick Liquid via small single sip from cup Result: 1= does not enter airway Pudding Result: 1= does not enter airway Cookie Result: 1= does not enter airway Thin Liquid via single sip from straw Result: 1= does not enter airway - Oral Phase Labial Seal: No Labial Escape Tongue Control During Bolus Hold: Posterior escape of greater than half of bolus Bolus Preparation/Mastication: Timely and efficient chewing and mashing Bolus Transport/Lingual Motion: Delayed initiation of tongue motion Oral Residue: Trace residue lining oral structures - Pharyngeal Phase Initiation of Pharyngeal Swallow: Bolus head in pyriforms Soft Palate Elevation: No bolus between soft palate and pharyngeal wall Laryngeal Elevation: Comp. Superior move thyroid cart w/comp. apprx arytenoid cart-epig pet Anterior Hyoid Excursion: Partial anterior movement Epiglottic Movement: Partial inversion Laryngeal Vestibule Closure at Height of Swallow: Complete; no air/contrast in laryngeal vestibule Pharyngeal Stripping Wave: Present - complete Pharyngoesophageal Segment Opening: Complete distension and complete duration; no obstruction of flow Tongue Base Retraction: Trace column of contrast between tongue base & post. pharyngeal wall Pharyngeal Residue: Trace residue within or on pharyngeal structures - Esophageal Phase Esophageal Clearance: Esophageal retention w/ retrograde flow below pharyngoesophageal seg. - Diagnosis/Impression Diagnosis: Oropharyngeal swallow function grossly WNL Impression: Overall patient's oropharyngeal swallow function is grossly within normal limits. Patient was observed taking large bolus size w/ various consistencies w/ posterior loss to the pyriforms prior to swallow onset. Mildly decreased anterior hyoid excursion and partial epiglottic inversion. Adequate laryngeal elevation and maintained complete closure of the laryngeal vestibule. No aspiration or penetration was observed across all consistencies throughout the study. Trace oral and pharyngeal residue after the swallow observed likely attributed to large bolus size. Min retention of pudding in upper esophagus which was not cleared w/ use of additional pudding trial and/or liquid wash. Patient belching after study was completed. - Recommendations Diet: Regular Textures, Thin Liquids Compensatory Strategies: Small Bites, Small Sips, Slow Rate, Alternate bites/solids and sips/liquids, Sitting upright, Remain sitting upright for 30 minutes after PO intake, Minimize/decrease distractions Recommend Repeat Modified Barium Swallow: No Need for Skilled Speech Therapy Services: No Recommended Referrals: GI Consult - Keep dougietDelores mena/ Dr. Álvarez next week Education Completed: 1. Described result of evaluation. - Status Active ST Patient: Active - Contact Information [facility]:: Sarahi Steiner M.A., CCC-DEVELOPMENT[employer]SEM[employer]ER Speech-Language Pathologist [facility] [address] [place] [address] [email or web address] [phone] 12/28/21 14:15
== END 2021-12-28 23:59 | disposition home or self-care (01) ==
PROVIDERS: Visit Provider Internal Medicine Gastroenterology
DX: R13.10 Dysphagia, unspecified (principal)
CPT/HCPCS: 74230; 92611

== ENCOUNTER → 2022-02-01 | Outpatient (CLI) | payer MEDICARE, SELFPAY | END | disposition home or self-care (01) | LOC: LABSPEC 15:07 | PROVIDERS: Visit Provider Otolaryngology Otolaryngology/Facial Plastic Surgery | DX: J32.8 Other chronic sinusitis (principal) | CPT/HCPCS: 87070; 87077; 87186; 87205 ==

== ENCOUNTER 2022-03-04 10:44 | Day surgery (SDC) | payer MEDICARE, SELFPAY ==
[2022-03-04] VITALS (7 sets, daily range): BP systolic 115–139; BP diastolic 44–82; PULSE 60–73; RESP 16; TEMP 36.1–37.3; O2SAT 92–97; BMI 33.5
[2022-03-04] MEDS: Lactated Ringers 1,000 ML 15 ML IV (11:19)
--- NOTE | 2022-03-04 11:28 | PCM.HP.BLA ---
History and Physical Date of Admission: 03/04/22 SHARI BATES, is a 71 F who presents to the office today for Follow up visit. Shari established with this clinic 02.17.21 for evaluation of diarrhea for several months with urgency. Fundoplication performed . PMH acquired hypothyroidism, depression, anxiety, insomnia, HTN, GERD, Gout, Sjogrens. PSH Maggie with 270 fundoplication ; cholecystectomy; hysterectomy. Esophageal manometry 05.08.20 noting Low LES pressure; weak peristalsis in one swallow. Overall normal manometry. EGD 05.08.20 4cm hiatal hernia with Hook deployed noting increased acid exposure in upright position on day 1 and in upright and supine position on day 2 with positive correlation to reported symptoms. Biochemical workup elevated CRP 3.08 and gastrin 152. GAME, ANCA, LDH and celiac testing WNL Stool studies 02.19.21 With elastase low 86. EGD and colonoscopy performed 03.24.21. EGD found LA grade A reflux esophagitis without metaplasia; gastritis. H.Pylori negative. ?Colonoscopy found congested mucosa in recto-sigmoid colon, descending colon, ascending colon and terminal ileum; diverticulosis in recto-sigmoid colon and sigmoid colon without evidence of bleed. Biopsy ? No pathologic diagnosis in terminal or colon biopsies. Prominent lymphoid aggregates. ?Omeprazole 40mg BID and Carafate TID started. CT abd/pel with pancreatic protocol 06.12.21 hepatic steatosis; small hiatal hernia. Shari called 09.14.21 to report that she was continuing to have worsening diarrhea. Recommended utilizing Lomotil BID routine with one PRN administration. Biochemical workup ordered CBC, ESR, CMP, gastrin, IgGAM, VITALY, LDH, LUANN comp without pertinent abnormality CRP H3.33 Stool lactoferrin WNL Upper GI 10.06.21 [facility] noting small sliding hiatal hernia with mucosal ring; small duodenal diverticulum; no evidence of reflux. Contact 11.12.21 to report that she was continuing to have loose stools and an upset stomach despite use of colestipol and Creon. Budesonide 9mg QD started. Shari called 12.14.21 to ask if there was any update regarding her dysphagia. Recommended swallow study as Recent EGD did not show etiology. Diarrhea continued and colestipol stopped and cholestyramine started. Barium swallow 12.28.21 Esophageal clearance: esophageal retention with retrograde flow below pharyngeoesophageal seg. Orophagyngeal swallow function grossly WNL. Plan last visit 05.22.21: Lymphocytic gastritis ? Carafate therapy completed. PPI continues. No identification of lymphocytic gastritis diagnosis. Pancreatic insufficiency ? presumptive diagnosis r/t low fecal elastase. Start Creon. Shari is doing well overall. Continues to have some minimal difficulty with swallowing. Intermittent nausea is also a difficulty in the morning, but passes quickly. Diarrhea has resolved with use of questran. ROS Const Constitutional: No fatigue, malaise, night sweats, weight change, sleep problems, abnormal sleep pattern or change in appetite ENT ENT: No difficulty swallowing, hoarseness or sore throat Cardio Cardiology: No chest pain at rest Gastro GI: No abdominal pain, belching, bloating, change in bowel habits, change in stool character, coffee ground emesis, constipation, cramping, heartburn, difficulty swallowing, feeling full early, excessive flatus, incontinent of stools, Vomiting blood/hematemesis, Blood in stool, loose stools, Black,tarry stools, pain with swallowing, vomiting or other Musc Musculoskeletal: No joint pain Skin Skin: No yellowing of the eye or itchy eyes Neuro Neurology: No behavioral changes Psych Psychiatric: No abnormal sleep pattern, No anxiety, No behavioral changes, No change in appetite and No depression Endo Endocrine: No fatigue or weight change Aller/Imm Allergy/Immunologic: No itchy eyes Rey/Lymp Hematologic/Lymphatic: No easy bleeding or easy bruising Exam Const General: cooperative and comfortable Nutritional Appearance: average body habitus and well nourished [facility] Head: normal to inspection Ears: hearing grossly normal bilaterally Nose: external nose normal Face and sinus: normal facial exam Mouth: oral mucosae normal Throat: posterior oropharynx normal Eyes General: appearance normal, both eyes and all related structures Neck Neck: normal visual inspection Chest Chest palpation & inspection: normal inspection of the chest and normal palpation of entire chest wall Resp Effort & Inspection: normal respiratory effort Auscultation: Bilateral: Clear to Auscultation Cardio Palpation: normal PMI Rate: regular rate Rhythm: regular rhythm GI Inspection: normal to inspection Auscultation: normal bowel sounds Percussion: normal to percussion Palpation: no hepatosplenomegaly Skin General: no rashes or lesions noted Neuro General: patient alert Extrem General: normal to inspection Psych Affect: normal affect Quality Reporting Tobacco Screening ([facility] 138) Smoking Status: Never smoker Assessment and Plan Assessment and Plan (1) Difficulty swallowing: ?Status:?Chronic ?Plan: She likely has an esophageal ring secondary to Schatzki's ring versus eosinophilic esophagitis versus elements of a sliding hiatal hernia.? She will undergo an upper endoscopy to evaluate upper GI tract with possible dilation and biopsies of the distal esophagus. (2) Pancreatic insufficiency: ?Status:?Chronic ?Plan: She will continue to take pancreatic enzymes with each meal and snacks as previously ordered.? In approximate 6 months time we can recheck her fecal elastase to make sure she is showing improvement as we try to titrate the medicine. (3) Diarrhea: ?Status:?Chronic ?Plan: Induced diarrhea is responding very well to cholestyramine therapy.? She will continue that twice daily basis.? She is not suffering any side effects from the medicine as of today. ? ? ? Medications: Refilled cholestyramine (with sugar) 4 gram ?? avoid other meds within 1hr before or 4-6hr after dose 4 grams PO BID 60 ea 11RF ? ? Discontinued budesonide ER ?? Discontinued Reason:? Order Completed 3 mg? PO DAILY 90 ea 5RF ? ? I have examined the patient and the H&P has been reviewed. There are no clinical changes since date of exam.
--- NOTE | 2022-03-04 12:15 | EGD_PTH ---
PATIENT: MORGAN SUAREZ LOC: EN U#:[id number] AGE/SX: 71/F ROOM: RE03/04/[address]: Dr. Tomas Álvarez DO : 1950 BED: DIS: 03/04/2022 SPEC #: [id number] RECD: 03/04/22 15:17 STATUS: MELISSA AMBERLY #: [id number] RENATO: 03/04/22 12:[address]: Tomas Álvarez DEPT: SURGICAL PATHOLOGY RECD BY: Jaquelin Tate ENTERED: 03/05/22 09:35 SP TYPE: EGD BIOPSY OT DR: SONIDO Jamil Tissues: Esophagus, NOS Procedures: Special Stain Group II Surgery Specimen Level IV Alcian Blue/PAS (control) HEADER OPERATION: [place] with biopsies and dilatation PRE-OP DIAGNOSIS: Difficulty swallowing, pancreatic insufficiency, diarrhea TISSUE SUBMITTED: Distal esophagus biopsy MICROSCOPIC DIAGNOSIS Distal esophagus, biopsy: Gastroesophageal junctional mucosa with chronic inflammation. Changes of reflux. No evidence of goblet cell metaplasia. See comment. AM:emma 03/08/2022 COMMENT Alcian blue/PAS stain with matched control supports the above diagnosis. MICROSCOPIC DESCRIPTION Slides are reviewed. GROSS DESCRIPTION Received in fixative is one container labeled with the patient's name and designated distal esophagus biopsy. The specimen consists of one irregular fragment of light bermudez soft tissue that measures 0.3 x 0.3 x 0.1 cm. The specimen is totally submitted in one cassette. / SJ:emma 03/05/2022 TC:3 CPT: 25564, 28280
--- NOTE | 2022-03-04 12:23 | OP.EGD_ITS ---
Patient Name: Shari Simmons Procedure Date: 03/04/2022 11:58 AM Date of : 1950 Age: 71 Procedure: Upper GI endoscopy Indications: Dysphagia Providers: Tomas Álvarez DO Referring MD: Tomas Álvarez DO Medicines: Monitored Anesthesia Care Patient Profile: This is a 71 year old female. Refer to note in patient chart for documentation of history and physical. Patient has symptoms of dysphagia with solids. Complications: No immediate complications. Procedure: Pre-Anesthesia Assessment: - Prior to the procedure, a History and Physical was performed, and patient medications and allergies were reviewed. The patient is competent. The risks and benefits of the procedure and the sedation options and risks were discussed with the patient. All questions were answered and informed consent was obtained. Patient identification and proposed procedure were verified by the physician in the pre-procedure area. Mental Status Examination: alert and oriented. Airway Examination: normal oropharyngeal airway and neck mobility. Respiratory Examination: clear to auscultation. CV Examination: normal. Prophylactic Antibiotics: The patient does not require prophylactic antibiotics. Prior Anticoagulants: The patient has taken no previous anticoagulant or antiplatelet agents. ASA Grade Assessment: II - A patient with mild systemic disease. After reviewing the risks and benefits, the patient was deemed in satisfactory condition to undergo the procedure. The anesthesia plan was to use monitored anesthesia care (MAC). Immediately prior to administration of medications, the patient was re-assessed for adequacy to receive sedatives. The heart rate, respiratory rate, oxygen saturations, blood pressure, adequacy of pulmonary ventilation, and response to care were monitored throughout the procedure. The physical status of the patient was re-assessed after the procedure. After obtaining informed consent, the endoscope was passed under direct vision. Throughout the procedure, the patient's blood pressure, pulse, and oxygen saturations were monitored continuously. The gastroscope was introduced through the mouth, and advanced to the second part of duodenum. The upper GI endoscopy was accomplished without difficulty. The patient tolerated the procedure well. Scope In: 12:10:18 PM Scope Out: 12:13:50 PM Total Procedure Duration Time 0 hours 3 minutes 32 seconds Findings: Abnormal motility was noted at the cricopharyngeus. The cricopharyngeus was abnormal. There is spasticity of the esophageal body. The distal esophagus/lower esophageal sphincter is open. Primary peristaltic waves are noted. A guidewire was placed and the scope was withdrawn. Dilation was performed with a Savary dilator with no resistance at 51 Fr. The dilation site was examined and showed mild improvement in luminal narrowing. Estimated blood loss was minimal. The Z-line was irregular and was found 38 cm from the incisors. Biopsies were taken with a cold forceps for histology. Verification of patient identification for the specimen was done. Estimated blood loss was minimal. No other significant abnormalities were identified in a careful examination of the stomach. The cardia and gastric fundus were normal on retroflexion. The first portion of the duodenum was normal. Impression: - Abnormal esophageal motility, suspicious for esophageal spasm. Dilated. - Z-line irregular, 38 cm from the incisors. Biopsied. - Normal first portion of the duodenum. Recommendation: - Discharge patient to home. - Resume previous diet. - Continue present medications. - Await pathology results. Procedure Code(s): --- Professional --- 14479, Esophagogastroduodenoscopy, flexible, transoral; with insertion of guide wire followed by passage of dilator(s) through esophagus over guide wire 00200, 59, Esophagogastroduodenoscopy, flexible, transoral; with biopsy, single or multiple CPT copyright 2017 [employer]. All rights reserved. The codes documented in this report are preliminary and upon emergency medical technician/driver review may be revised to meet current compliance requirements. Tomas Álvarez DO 03/04/2022 12:22:47 PM This report has been signed electronically. Number of Addenda: 0 Note Initiated On: 03/04/2022 11:58 AM
--- NOTE | 2022-03-04 12:23 | OP.CCLET_ITS ---
03/04/2022 Jason Jamil Re : Upper GI endoscopy procedure for Shari Simmons Dear Mamadou This procedure was performed on February. My impressions and recommendations are as follows: Impressions : - Abnormal esophageal motility, suspicious for esophageal spasm. Dilated. - Z-line irregular, 38 cm from the incisors. Biopsied. - Normal first portion of the duodenum. Recommendations : - Discharge patient to home. - Resume previous diet. - Continue present medications. - Await pathology results. My findings are described in the full procedure note, which is enclosed. If I can be of further assistance, please feel free to contact me at . Sincerely, Tomas Álvarez, 03/04/2022 12:22:47 PM This report has been signed electronically.
== END 2022-03-04 13:08 | disposition home or self-care (01) ==
LOC: EN 10:45 → AC 10:48
PROVIDERS: Referring Provider Internal Medicine Gastroenterology; Visit Provider Internal Medicine Gastroenterology
PROC: 0DJ08ZZ Inspection of Upper Intestinal Tract, Via Natural or Artificial Opening Endoscopic (ICD-10-PCS; CPT 43235; principal; 2022-03-04 12:10)
DX: R13.10 Dysphagia, unspecified (principal); K86.89 Other specified diseases of pancreas; R19.7 Diarrhea, unspecified
CPT/HCPCS: 43239; 43248; 88305; 88313; J7120; C1769; J2405

== ENCOUNTER 2022-03-19 07:00 | Day surgery (SDC) | payer MEDICARE, SELFPAY ==
[2022-03-19 07:20] VITALS: BP 138/119; PULSE 62; RESP 16; TEMP 36.1; O2SAT 96
[2022-03-19] MEDS: Lidocaine Jelly 2% 20 ML Syringe (URO-JET) 1 APPLIC (07:30)
== END 2022-03-19 07:50 | disposition home or self-care (01) ==
PROVIDERS: Referring Provider Internal Medicine Gastroenterology; Visit Provider Internal Medicine Gastroenterology
PROC: F00ZJWZ Instrumental Swallowing and Oral Function Assessment using Swallowing Equipment (ICD-10-PCS; CPT 43235; principal; 2022-03-19 07:25)
DX: K22.4 Dyskinesia of esophagus (principal)
CPT/HCPCS: 91010

== ENCOUNTER → 2022-03-30 | Outpatient (CLI) | payer MEDICARE, SELFPAY | END | disposition home or self-care (01) | LOC: LABSPEC 15:54 | PROVIDERS: Visit Provider Otolaryngology Otolaryngology/Facial Plastic Surgery | DX: J02.9 Acute pharyngitis, unspecified (principal) | CPT/HCPCS: 87070; 87077 ==

== ENCOUNTER 2022-04-29 07:57 | Day surgery (SDC) | payer MEDICARE, SELFPAY ==
[2022-04-29] VITALS (12 sets, daily range): BP systolic 109–145; BP diastolic 58–82; PULSE 60–67; RESP 16–18; TEMP 36.6–36.8; O2SAT 93–100; BMI 33.7
[2022-04-29] MEDS: Lactated Ringers 1,000 ML 15 ML IV (09:01)
[2022-04-29] MEDS: 0.9% Saline Lock 10 ML Syringe IV (09:29)
[2022-04-29] MEDS: 0.9% Normal Saline (Pres. free 10 ML Vial (09:29)
--- NOTE | 2022-04-29 09:30 | HP.PCM_ITS ---
History and Physical Date of Admission: 04/29/22 SHARI BATES, is a 71 F who presents to the office today for Follow up visit. Shari established with this clinic 02.17.21 for evaluation of diarrhea for several months with urgency. Fundoplication performed . PMH acquired hypothyroidism, depression, anxiety, insomnia, HTN, GERD, Gout, Sjogrens. PSH Maggie with 270 fundoplication ; cholecystectomy; hysterectomy. Esophageal manometry 05.08.20 noting Low LES pressure; weak peristalsis in one swallow. Overall normal manometry. EGD 05.08.20 4cm hiatal hernia with Hook deployed noting increased acid exposure in upright position on day 1 and in upright and supine position on day 2 with positive correlation to reported symptoms. Biochemical workup elevated CRP 3.08 and gastrin 152. GAME, ANCA, LDH and celiac testing WNL Stool studies 02.19.21 With elastase low 86. EGD and colonoscopy performed 03.24.21. EGD found LA grade A reflux esophagitis without metaplasia; gastritis. H.Pylori negative. ?Colonoscopy found congested mucosa in recto-sigmoid colon, descending colon, ascending colon and terminal ileum; diverticulosis in recto-sigmoid colon and sigmoid colon without evidence of bleed. Biopsy ? No pathologic diagnosis in terminal or colon biopsies. Prominent lymphoid aggregates. ?Omeprazole 40mg BID and Carafate TID started. CT abd/pel with pancreatic protocol 06.12.21 hepatic steatosis; small hiatal hernia. Shari called 09.14.21 to report that she was continuing to have worsening diarrhea. Recommended utilizing Lomotil BID routine with one PRN administration. Biochemical workup ordered CBC, ESR, CMP, gastrin, IgGAM, VITALY, LDH, LUANN comp without pertinent abnormality CRP H3.33 Stool lactoferrin WNL Upper GI 10.06.21 [facility] noting small sliding hiatal hernia with mucosal ring; small duodenal diverticulum; no evidence of reflux. Contact 11.12.21 to report that she was continuing to have loose stools and an upset stomach despite use of colestipol and Creon. Budesonide 9mg QD started. Shari called 12.14.21 to ask if there was any update regarding her dysphagia. Recommended swallow study as Recent EGD did not show etiology. Diarrhea continued and colestipol stopped and cholestyramine started. Barium swallow 12.28.21 Esophageal clearance: esophageal retention with retrograde flow below pharyngeoesophageal seg. Orophagyngeal swallow function grossly WNL. Plan last visit 05.22.21: Lymphocytic gastritis ? Carafate therapy completed. PPI continues. No identification of lymphocytic gastritis diagnosis. Pancreatic insufficiency ? presumptive diagnosis r/t low fecal elastase. Start Creon. Shari is doing well overall. Continues to have some minimal difficulty with swallowing. Intermittent nausea is also a difficulty in the morning, but passes quickly. Diarrhea has resolved with use of questran. ROS Const Constitutional: No fatigue, malaise, night sweats, weight change, sleep problems, abnormal sleep pattern or change in appetite ENT ENT: No difficulty swallowing, hoarseness or sore throat Cardio Cardiology: No chest pain at rest Gastro GI: No abdominal pain, belching, bloating, change in bowel habits, change in stool character, coffee ground emesis, constipation, cramping, heartburn, difficulty swallowing, feeling full early, excessive flatus, incontinent of stools, Vomiting blood/hematemesis, Blood in stool, loose stools, Black,tarry stools, pain with swallowing, vomiting or other Musc Musculoskeletal: No joint pain Skin Skin: No yellowing of the eye or itchy eyes Neuro Neurology: No behavioral changes Psych Psychiatric: No abnormal sleep pattern, No anxiety, No behavioral changes, No change in appetite and No depression Endo Endocrine: No fatigue or weight change Aller/Imm Allergy/Immunologic: No itchy eyes Rey/Lymp Hematologic/Lymphatic: No easy bleeding or easy bruising Exam Const General: cooperative and comfortable Nutritional Appearance: average body habitus and well nourished [facility] Head: normal to inspection Ears: hearing grossly normal bilaterally Nose: external nose normal Face and sinus: normal facial exam Mouth: oral mucosae normal Throat: posterior oropharynx normal Eyes General: appearance normal, both eyes and all related structures Neck Neck: normal visual inspection Chest Chest palpation & inspection: normal inspection of the chest and normal palpation of entire chest wall Resp Effort & Inspection: normal respiratory effort Auscultation: Bilateral: Clear to Auscultation Cardio Palpation: normal PMI Rate: regular rate Rhythm: regular rhythm GI Inspection: normal to inspection Auscultation: normal bowel sounds Percussion: normal to percussion Palpation: no hepatosplenomegaly Skin General: no rashes or lesions noted Neuro General: patient alert Extrem General: normal to inspection Psych Affect: normal affect Quality Reporting Tobacco Screening ([facility] 138) Smoking Status: Never smoker Assessment and Plan Assessment and Plan (1) Difficulty swallowing: ?Status:?Chronic ?Plan: She likely has an esophageal ring secondary to Schatzki's ring versus eosinophilic esophagitis versus elements of a sliding hiatal hernia.? She will undergo an upper endoscopy to evaluate upper GI tract with possible dilation and biopsies of the distal esophagus. (2) Pancreatic insufficiency: ?Status:?Chronic ?Plan: She will continue to take pancreatic enzymes with each meal and snacks as previously ordered.? In approximate 6 months time we can recheck her fecal e lastase to make sure she is showing improvement as we try to titrate the medicine. (3) Diarrhea: ?Status:?Chronic ?Plan: Induced diarrhea is responding very well to cholestyramine therapy.? She will continue that twice daily basis.? She is not suffering any side effects from the medicine as of today. ? ? ? Medications: Refilled cholestyramine (with sugar) 4 gram ?? avoid other meds within 1hr before or 4-6hr after dose? 4 grams PO BID 60 ea 11RF? Discontinued budesonide ER ?? Discontinued Reason:? Order Completed? 3 mg? PO DAILY 90 ea 5RF? I have examined the patient and the H&P has been reviewed. There are no clinical changes since date of exam.
[2022-04-29] MEDS: Botulinum Toxin A 100 Units Vial IJ (09:33)
--- NOTE | 2022-04-29 09:43 | OP.CCLET_ITS ---
04/29/2022 Jason Jamil Re : Upper GI endoscopy procedure for Shari Simmons Dear Mamadou This procedure was performed on April. My impressions and recommendations are as follows: Impressions : - Abnormal esophageal motility, established esophageal spasm. Injected with botulinum toxin. - Normal stomach. - Normal second portion of the duodenum. - No specimens collected. Recommendations : - Discharge patient to home. - Resume previous diet. - Continue present medications. My findings are described in the full procedure note, which is enclosed. If I can be of further assistance, please feel free to contact me at . Sincerely, Tomas Álvarez, 04/29/2022 9:42:41 AM This report has been signed electronically.
--- NOTE | 2022-04-29 09:43 | OP.EGD_ITS ---
Patient Name: Shari Simmons Procedure Date: 04/29/2022 9:15 AM Date of : 1950 Age: 71 Procedure: Upper GI endoscopy Indications: Dysphagia Providers: Tomas Álvarez DO Referring MD: Jason Jamil Medicines: Monitored Anesthesia Care Patient Profile: This is a 71 year old female. Refer to note in patient chart for documentation of history and physical. Patient has symptoms of chronic chest pain, dysphagia with both liquids and solids and chronic nausea. Complications: No immediate complications. Procedure: Pre-Anesthesia Assessment: - Prior to the procedure, a History and Physical was performed, and patient medications and allergies were reviewed. The risks and benefits of the procedure and the sedation options and risks were discussed with the patient. All questions were answered and informed consent was obtained. Patient identification and proposed procedure were verified by the physician in the pre-procedure area. Mental Status Examination: alert and oriented. Airway Examination: normal oropharyngeal airway and neck mobility. Respiratory Examination: clear to auscultation. CV Examination: normal. Prophylactic Antibiotics: The patient does not require prophylactic antibiotics. Prior Anticoagulants: The patient has taken no previous anticoagulant or antiplatelet agents. ASA Grade Assessment: II - A patient with mild systemic disease. After reviewing the risks and benefits, the patient was deemed in satisfactory condition to undergo the procedure. The anesthesia plan was to use monitored anesthesia care (MAC). Immediately prior to administration of medications, the patient was re-assessed for adequacy to receive sedatives. The heart rate, respiratory rate, oxygen saturations, blood pressure, adequacy of pulmonary ventilation, and response to care were monitored throughout the procedure. The physical status of the patient was re-assessed after the procedure. After obtaining informed consent, the endoscope was passed under direct vision. Throughout the procedure, the patient's blood pressure, pulse, and oxygen saturations were monitored continuously. The gastroscope was introduced through the mouth, and advanced to the second part of duodenum. The upper GI endoscopy was accomplished without difficulty. The patient tolerated the procedure well. Scope In: 9:28:13 AM Scope Out: 9:37:03 AM Total Procedure Duration Time 0 hours 8 minutes 50 seconds Findings: Abnormal motility was noted in the esophagus. The cricopharyngeus was abnormal. There is spasticity and extra peristaltic waves of the esophageal body. The distal esophagus/lower esophageal sphincter is spastic, but gives up passage to the endoscope. Tertiary peristaltic waves are noted. Area was successfully injected with 100 units botulinum toxin. The entire examined stomach was normal. The cardia and gastric fundus were normal on retroflexion. The second portion of the duodenum was normal. Impression: - Abnormal esophageal motility, established esophageal spasm. Injected with botulinum toxin. - Normal stomach. - Normal second portion of the duodenum. - No specimens collected. Recommendation: - Discharge patient to home. - Resume previous diet. - Continue present medications. Procedure Code(s): --- Professional --- 28482, Esophagogastroduodenoscopy, flexible, transoral; with directed submucosal injection(s), any substance CPT copyright 2017 [employer]. All rights reserved. The codes documented in this report are preliminary and upon bullet assembly press operator review may be revised to meet current compliance requirements. Tomas Álvarez DO 04/29/2022 9:42:41 AM This report has been signed electronically. Number of Addenda: 0 Note Initiated On: 04/29/2022 9:15 AM
== END 2022-04-29 11:21 | disposition home or self-care (01) ==
LOC: EN 08:01 → AC 08:02
PROVIDERS: Visit Provider Internal Medicine Gastroenterology
PROC: 0DJ08ZZ Inspection of Upper Intestinal Tract, Via Natural or Artificial Opening Endoscopic (ICD-10-PCS; CPT 43235; principal; 2022-04-29 09:10)
DX: K22.4 Dyskinesia of esophagus (principal); K86.89 Other specified diseases of pancreas; R19.7 Diarrhea, unspecified; E03.9 Hypothyroidism, unspecified; I10 Essential (primary) hypertension; M10.9 Gout, unspecified; Z90.49 Acquired absence of other specified parts of digestive tract; K44.9 Diaphragmatic hernia without obstruction or gangrene; R11.0 Nausea; Z96.642 Presence of left artificial hip joint; R07.9 Chest pain, unspecified; K21.9 Gastro-esophageal reflux disease without esophagitis; K22.89 Other specified disease of esophagus; R13.10 Dysphagia, unspecified
CPT/HCPCS: 43236; J7120; A4216; J0585; J2405; J3490

== ENCOUNTER 2022-09-21 12:05 | Day surgery (SDC) | payer MEDICARE, SELFPAY ==
[2022-09-21 12:26] VITALS: BP 123/61; PULSE 57; RESP 18; TEMP 35.6; O2SAT 98; BMI 32.8
[2022-09-21] MEDS: Lactated Ringers 1,000 ML 15 ML IV (12:40)
--- NOTE | 2022-09-21 12:51 | PCM.HP.BLA ---
History and Physical Date of Admission: 09/21/22 MORGAN BATES, is a 72 F who presents to the office today for PMH acquired hypothyroidism, depression, anxiety, insomnia, HTN, GERD, Gout, Sjogrens. PSH Maggie with 270 fundoplication ; cholecystectomy; hysterectomy. Prior Dysphagia workup: Esophageal manometry 05.08.20 noting Low LES pressure; weak peristalsis in one swallow. Overall normal manometry. EGD 05.08.20 4cm hiatal hernia with Hook deployed noting increased acid exposure in upright position on day 1 and in upright and supine position on day 2 with positive correlation to reported symptoms. *[facility] established clinic 02.17.21 for evaluation of diarrhea for several months with urgency. Fundoplication performed . Biochemical workup elevated CRP 3.08 and gastrin 152. GAME, ANCA, LDH and celiac testing WNL Stool studies 02.19.21 With elastase low 86. EGD and colonoscopy 03.24.21. EGD found LA grade A reflux esophagitis without metaplasia; gastritis. H.Pylori negative. Colonoscopy found congested mucosa in recto-sigmoid colon, descending colon, ascending colon and terminal ileum; diverticulosis in recto-sigmoid colon and sigmoid colon without evidence of bleed. Biopsy ? No pathologic diagnosis in terminal or colon biopsies. Prominent lymphoid aggregates. Omeprazole 40mg BID and Carafate TID started. OV 04.07.21 CT abd/pel with pancreatic protocol 06.12.21 hepatic steatosis; small hiatal hernia. Contact 09.14.21 to report that she was continuing to have worsening diarrhea. Recommended utilizing Lomotil BID routine with one PRN administration. Biochemical workup Biochemical workup CBC, ESR, CMP, gastrin, IgGAM, VITALY, LDH, LUANN comp without pertinent abnormality CRP H3.33 Stool lactoferrin WNL General Surgeon Dr. Loyola ordered Upper GI 10.06.21 [facility] noting small sliding hiatal hernia with mucosal ring; small duodenal diverticulum; no evidence of reflux. Contact 11.12.21 to report that she was continuing to have loose stools and an upset stomach despite use of colestipol and Creon. Budesonide 9mg QD started. Contact 12.14.21 to ask if there was any update regarding her dysphagia. Recommended swallow study as Recent EGD did not show etiology. Diarrhea continued and colestipol stopped and cholestyramine started. Barium swallow 12.28.21 Esophageal clearance: esophageal retention with retrograde flow below pharyngoesophageal seg. Oropharyngeal swallow function grossly WNL. OV 01.05.22 Dysphagia ? EGD. EPI ? continue enzymes. Diarrhea ? continue cholestyramine, Stop budesonide. EGD 03.04.22 noting abnormal esophageal motility, spasm; irregular Zline 38cm. Esophageal Manometry 03.19.22 noting EGJ outflow obstruction, median IRP 20.4. OV 03.29.22 Each time she eats she will be doing fine with swallowing, will then have pain substernal/lower esophagus and regurgitate her food without emesis. Feels her bowel are doing well and are now food triggered with symptoms. Contact 06.14.22 with increased belching and bloating; start doxycycline for suspected SIBO. OV 06.24.22 noting improvement of belching and mild improvement of bloating. Typically gets yeast infection from antibiotic use and would like a prescription for this on hand. Quality Reporting Tobacco Screening ([facility] 138) Smoking Status: Never smoker Assessment and Plan Assessment and Plan (1) Pancreatic insufficiency: Status: Chronic Plan: She will continue to take pancreatic enzymes with each meal and snacks as previously ordered. In approximate 6 months time we can recheck her fecal elastase to make sure she is showing improvement as we try to titrate the medicine. (2) Difficulty swallowing: Status: Chronic Plan: She likely has an esophageal ring secondary to Schatzki's ring versus eosinophilic esophagitis versus elements of a sliding hiatal hernia. She will undergo an upper endoscopy to evaluate upper GI tract with possible dilation and biopsies of the distal esophagus with botox. (3) Diarrhea: Status: Chronic Plan: Induced diarrhea is responding very well to cholestyramine therapy. She will continue that twice daily basis. She is not suffering any side effects from the medicine as of today. I have examined the patient and the H&P has been reviewed. There are no clinical changes since date of exam.
[2022-09-21] MEDS: 0.9% Normal Saline (Pres. free 10 ML Vial (13:31)
[2022-09-21] MEDS: Botulinum Toxin A 100 Units Vial IJ (13:53)
[2022-09-21] MEDS: 0.9% Saline Lock 10 ML Syringe IV (13:54)
[2022-09-21 14:00] VITALS: BP 117/63; BP 123/61; PULSE 70; RESP 18; TEMP 36.2; O2SAT 95
--- NOTE | 2022-09-21 14:04 | OP.EGD_ITS ---
Patient Name: Shari Simmons Procedure Date: 09/21/2022 1:40 PM Date of : 1950 Age: 72 Procedure: Upper GI endoscopy Indications: Dysphagia Providers: Tomas Álvarez DO Referring MD: Jason Jamil Medicines: Monitored Anesthesia Care Patient Profile: This is a 72 year old female. Refer to note in patient chart for documentation of history and physical. Patient has symptoms of dysphagia with both liquids and solids. Complications: No immediate complications. Procedure: Pre-Anesthesia Assessment: - Prior to the procedure, a History and Physical was performed, and patient medications and allergies were reviewed. The patient is competent. The risks and benefits of the procedure and the sedation options and risks were discussed with the patient. All questions were answered and informed consent was obtained. Patient identification and proposed procedure were verified by the physician in the pre-procedure area. Mental Status Examination: alert and oriented. Airway Examination: normal oropharyngeal airway and neck mobility. Respiratory Examination: clear to auscultation. CV Examination: normal. Prophylactic Antibiotics: The patient does not require prophylactic antibiotics. Prior Anticoagulants: The patient has taken no previous anticoagulant or antiplatelet agents. After reviewing the risks and benefits, the patient was deemed in satisfactory condition to undergo the procedure. The anesthesia plan was to use monitored anesthesia care (MAC). Immediately prior to administration of medications, the patient was re-assessed for adequacy to receive sedatives. The heart rate, respiratory rate, oxygen saturations, blood pressure, adequacy of pulmonary ventilation, and response to care were monitored throughout the procedure. The physical status of the patient was re-assessed after the procedure. After obtaining informed consent, the endoscope was passed under direct vision. Throughout the procedure, the patient's blood pressure, pulse, and oxygen saturations were monitored continuously. The gastroscope was introduced through the mouth, and advanced to the second part of duodenum. The upper GI endoscopy was accomplished without difficulty. The patient tolerated the procedure well. Scope In: 1:48:54 PM Scope Out: 1:56:31 PM Total Procedure Duration Time 0 hours 7 minutes 37 seconds Findings: Abnormal motility was noted in the lower third of the esophagus. The cricopharyngeus was abnormal. There is a decrease in motility of the esophageal body. The distal esophagus/lower esophageal sphincter is patulous. Tertiary peristaltic waves are noted. Area was successfully injected with 100 units botulinum toxin. A small hiatal hernia was present. No other significant abnormalities were identified in a careful examination of the stomach. The second portion of the duodenum was normal. Impression: - Abnormal esophageal motility, consistent with esophageal spasm. Injected with botulinum toxin. - Small hiatal hernia. - Normal second portion of the duodenum. - No specimens collected. Recommendation: - Discharge patient to home. - Resume previous diet. - Continue present medications. Procedure Code(s): --- Professional --- 52547, Esophagogastroduodenoscopy, flexible, transoral; with directed submucosal injection(s), any substance CPT copyright 2017 [employer]. All rights reserved. The codes documented in this report are preliminary and upon cracker sprayer review may be revised to meet current compliance requirements. Tomas Álvarez DO 09/21/2022 2:03:48 PM This report has been signed electronically. Number of Addenda: 0 Note Initiated On: 09/21/2022 1:40 PM
--- NOTE | 2022-09-21 14:04 | OP.CCLET_ITS ---
09/21/2022 Jason Jamil Re : Upper GI endoscopy procedure for Shari Simmons Dear Mamadou This procedure was performed on Wednesday, September 21, 2022. My impressions and recommendations are as follows: Impressions : - Abnormal esophageal motility, consistent with esophageal spasm. Injected with botulinum toxin. - Small hiatal hernia. - Normal second portion of the duodenum. - No specimens collected. Recommendations : - Discharge patient to home. - Resume previous diet. - Continue present medications. My findings are described in the full procedure note, which is enclosed. If I can be of further assistance, please feel free to contact me at . Sincerely, Tomas Álvarez, 09/21/2022 2:03:48 PM This report has been signed electronically.
[2022-09-21 14:05] VITALS: BP 116/48; BP 123/61; PULSE 63; RESP 16; O2SAT 96
[2022-09-21 14:10] VITALS: BP 107/50; BP 123/61; PULSE 61; RESP 18; O2SAT 95
[2022-09-21 14:15] VITALS: BP 123/61; BP 132/64; PULSE 61; RESP 18; TEMP 36.2; O2SAT 94
[2022-09-21 14:42] VITALS: BP 123/61
== END 2022-09-21 14:46 | disposition home or self-care (01) ==
LOC: EN 12:06 → AC 12:08
PROVIDERS: Visit Provider Internal Medicine Gastroenterology
PROC: 0DJ08ZZ Inspection of Upper Intestinal Tract, Via Natural or Artificial Opening Endoscopic (ICD-10-PCS; CPT 43235; principal; 2022-09-21 13:25)
DX: K44.9 Diaphragmatic hernia without obstruction or gangrene (principal); K86.89 Other specified diseases of pancreas; R19.7 Diarrhea, unspecified; R13.10 Dysphagia, unspecified; E03.9 Hypothyroidism, unspecified; I10 Essential (primary) hypertension; K21.9 Gastro-esophageal reflux disease without esophagitis; Z90.49 Acquired absence of other specified parts of digestive tract; K22.4 Dyskinesia of esophagus
CPT/HCPCS: 43236; J7120; A4216; J0585; J2405; J3490

== ENCOUNTER 2022-10-04 08:34 | Outpatient (CLI) | payer MEDICARE, SELFPAY ==
[2022-10-07 18:07] LABS: Beef <0.10 kU/L (Class 0); Chocolate <0.10 kU/L (Class 0); Corn <0.10 kU/L (Class 0); Egg, Whole <0.10 kU/L (Class 0); Milk (Cow) <0.10 kU/L (Class 0); Peanut <0.10 kU/L (Class 0); Pork <0.10 kU/L (Class 0); Soybean <0.10 kU/L (Class 0); Wheat <0.10 kU/L (Class 0)
== END 2022-10-04 23:59 | disposition home or self-care (01) ==
PROVIDERS: PCP Physician Assistant; Referring Provider Internal Medicine Gastroenterology; Visit Provider Internal Medicine Gastroenterology
DX: J02.9 Acute pharyngitis, unspecified (principal); R19.7 Diarrhea, unspecified
CPT/HCPCS: 36415; 86003; 86005; 87070

== ENCOUNTER → 2023-01-26 | Outpatient (CLI) | payer MEDICARE, SELFPAY | END | disposition home or self-care (01) | PROVIDERS: PCP Physician Assistant; Visit Provider Otolaryngology Otolaryngology/Facial Plastic Surgery | DX: J32.8 Other chronic sinusitis (principal) | CPT/HCPCS: 87070; 87205 ==

== ENCOUNTER 2023-04-06 05:22 | Day surgery (SDC) | payer MEDICARE, SELFPAY ==
--- OUTSIDE RECORDS SUMMARY | 2023-04-06 05:26 | XMS RPT_ITS | CCD ---
Author Name Unknown Address [id number] [place] [address] Organization [facility] Care Team Providers Care Environmental Technical Officer Name Role Phone PHYSICIAN, NOT RECORDED Primary Care Physician U ALBERTO Centeno MD, JR Attending Unavail able PHYSICIAN, NOT RECORDED Primary Care UnavailALBERTO Patel MD, JR Attending Unavail able PHYSICIAN, NOT RECORDED Primary Care UnavailALBERTO Patel MD, JR Attending Unavail able PHYSICIAN, NOT RECORDED Primary Care UnavailALBERTO Patel MD, JR Attending Unavail able PHYSICIAN, NOT RECORDED Primary Care Unavaila ble CLARK, ANTONINO PAC Consulting Unavailable KNAPIC, RADHA S Admitting Unavailable KNAPIC, RADHA S Primary Care Unavailable KNAPIC, RADHA S Attending Unavailable PROVIDER, UNKNOWN Consulting Unavailable CLARK, ANTONINO PAC Consulting Unavailable RENY, LUKE E Admitting Unavailable RENY, LUKE E Primary Care Unavailable RENY, LUKE E Attending Unavailable PROVIDER, UNKNOWN Consulting Unavailable CLARK, ANTONINO PAC Consulting Unavailable MIGUEL, ELVIN K Admitting Unavailable MIGUEL, ELVIN K Primary Care Unavailable MIGUEL, ELVIN K Attending Unavailable PROVIDER, UNKNOWN Consulting Unavailable Reny PA-C, Luke E Unavailable Clark PA-C, Antonino J Unavailable [facility], ([facility]) Unavailable Dr. Debbie Nguyen MD Unavailable Friend, Dr. Marin Unavailable [phone] Cardiology Provider Unavailable Unavailable Valentino ZALDIVAR, Dr. Paras Zamorano Unavailable Dr. Micah Gannon MD Unavailable Jt INDUSTRIAL REHABILITATION CONSULTANT, Alma Rosa Unavailable Cornelio INDUSTRIAL REHABILITATION CONSULTANT, Maggie Unavailable Unavailable Loy ZALDIVAR, Rod Zamorano Unavailable German INDUSTRIAL REHABILITATION CONSULTANT, Lacie Menezes Unavailable Unavailable Ran CHANDRA, Coral Unavailable Unavailable Sinan INDUSTRIAL REHABILITATION CONSULTANT, Wendi C Unavailable [facility] Hemanta Unavailable Unavaila ble Diego INDUSTRIAL REHABILITATION CONSULTANT, Nina Unavailable Unavailable Rusty ZALDIVAR, Hailee Armendariz Unavailable Reny, Madelin Butler Unavailable Unavailable Reny RN, Corin L Unavailable Unavail able Justice CHANDRA, Olive Unavailable Unavailable Derick INDUSTRIAL REHABILITATION CONSULTANT, Liyah Unavailable Unavailable Destinee HURD, Katie A Unavailable Unavaila ble Marthey INDUSTRIAL REHABILITATION CONSULTANT, Morelia Unavailable Unavailable Deandre INDUSTRIAL REHABILITATION CONSULTANT, Dayday Unavailable [facility] Yossi Unavailable Unavailab le Mutersbaugh INDUSTRIAL REHABILITATION CONSULTANT, Constanza K Unavailable Unavai josh Rico PA-C, Tanya J Unavailable Lee [facility] Buck Unavailable Unavailab le Richert INDUSTRIAL REHABILITATION CONSULTANT, Tiny L Unavailable Unavailab le Vinay INDUSTRIAL REHABILITATION CONSULTANT, Mary M Unavailable Unavailab le Aide INDUSTRIAL REHABILITATION CONSULTANT, Dee Dee Nunez Unavailable Unavailab le Vess INDUSTRIAL REHABILITATION CONSULTANT, Neilee L Unavailable Unavailable Wengerd INDUSTRIAL REHABILITATION CONSULTANT, Marilyn Unavailable Unavailabl e [place] INDUSTRIAL REHABILITATION CONSULTANT, Yakelin Diaz Unavailable Unavaila ble Unavailable Unavailable Allergies Allergy Classification Reported Allergen(s) Allergy Type Date of Onset Reaction(s) Facility NEGATED: Highlighted row has been ruled out! (1 source) 12-05-2020 [facility] [employer] [employer] NEGATED: Highlighted row has been ruled out! (1 source) [employer] [facility] [employer] NEGATED: Highlighted row has been ruled out! (1 source) 12-05-2020 [facility] [employer] [employer] NEGATED: Highlighted row has been ruled out! (1 source) [facility] [employer] [employer] [employer] NEGATED: Highlighted row has been ruled out! (1 source) 12-05-2020 [employer] [employer] NEGATED: Highlighted row has been ruled out! (1 source) [employer] [employer] NEGATED: Highlighted row has been ruled out! (1 source) 12-05-2020 [employer] [employer] NEGATED: Highlighted row has been ruled out! (1 source) [employer] [employer]. NEGATED: Highlighted row has been ruled out! (1 source) 12-05-2020 [employer] [employer] NEGATED: Highlighted row has been ruled out! (1 source) [employer] [employer]. Medications Current Medications Medication Drug Class(es) Dates Sig (Normalized) Sig (Original) amoxicillin 875 mg / clavulanate 125 mg oral tablet (17 sources) Penicillin-class Antibacterial Start: 04-01-2023 Completed/Discontinued Medications Medication Drug Class(es) Dates Sig (Normalized) Sig (Original) Acetaminophen (5 sources) ALPRAZolam 0.5 mg oral tablet (10 sources) Benzodiazepine Start: 05-25-2021 End: 05-25-2021 Problems Problem Classification Problem Date Documented Da te Episodic/Chronic Abdominal hernia (20 sources) Hiatal hernia; Translations: [Diaphragmatic hernia without obstruction or gangrene] 11-04-2014 Episodic Abdominal pain (5 sources) Epigastric pain; Translations: [Epigastric pain] 03-15-2014 Episodic Administrative/social admission (10 sources) Issue of repeat prescriptions 08-16-2016 Episodic Anxiety disorders (20 sources) Anxiety; Translations: [Anxiety disorder, unspecified] 01-26-2023 Chronic Conditions associated with dizziness or vertigo (5 sources) Dizziness; Translations: [Dizziness and giddiness] 05-14-2014 Episodic Disorders of lipid metabolism (20 sources) Hypertriglyceridemia; Translations: [Pure hyperglyceridemia] 01-26-2023 Chronic Esophageal disorders (20 sources) Gastroesophageal reflux disease; Translations: [Gastro-esophageal reflux disease without esophagitis] 02-23-2014 Chronic Essential hypertension (20 sources) Hypertensive disorder; Translations: [Diastolic hypertension] 02-23-2014 Chronic Genitourinary symptoms and ill-defined conditions (5 sources) Urinary symptoms ; Translations: [Unspecified symptoms and signs involving the genitourinary system] 04-11-2013 Episodic Gout and other crystal arthropathies (15 sources) Gout; Translations: [Gout, unspecified] 01-26-2023 Chronic Immunizations and screening for infectious disease (20 sources) Requires vaccination; Translations: [Encounter for immunization] 12-29-2017 Episodic Inflammation; infection of eye (except that caused by tuberculosis or sexually transmitteddisease) (10 sources) Conjunctivitis; Translations: [Other mucopurulent conjunctivitis, unspecified eye] 08-14-2018 Episodic Malaise and fatigue (5 sources) Fatigue; Translations: [Other fatigue] 02-22-2014 Episodic Menopausal disorders (5 sources) Symptomatic menopausal or female climacteric states 06-09-2012 Chronic Mood disorders (20 sources) Depressive disorder; Translations: [Recurrent major depressive episodes, moderate ] 03-06-2020 Chronic Mycoses (20 sources) Candidiasis of mouth; Translations: [Candidal stomatitis] 2018 Episodic Nausea and vomiting (20 sources) Nausea; Translations: [Nausea] 01-26-2023 Episodic Noninfectious gastroenteritis (20 sources) Acute gastroenteritis; Translations: [Noninfective gastroenteritis and colitis, unspecified] 05-05-2017 Episodic Nonspecific chest pain (20 sources) Chest pain; Translations: [Chest pain, unspecified] 02-23-2014 Episodic Open wounds of extremities (5 sources) Dog bite of hand; Translations: [Open bite of right hand, initial encounter] 07-20-2016 Episodic Osteoarthritis (20 sources) Arthritis of left knee; Translations: [Unilateral primary osteoarthritis, left knee] 01-26-2023 Chronic Other aftercare (10 sources) Post-discharge follow-up; Translations: [Encounter for follow-up examination after completed treatment for conditions other than malignant neoplasm] 09-18-2021 Episodic Other aftercare (5 sources) Removal of sutures done; Translations: [Encounter for removal of sutures] 07-31-2015 Episodic Other aftercare (5 sources) Drug indicated; Translations: [Other chcf (current) drug therapy] 01-25-2011 Episodic Other aftercare (5 sources) Encounter for removal of sutures 11-20-2010 Episodic Other circulatory disease (20 sources) Elevated blood pressure reading without diagnosis of hypertension 03-06-2013 Episodic Other ear and sense organ disorders (5 sources) Tinnitus; Translations: [Tinnitus, unspecified ear] 03-10-2018 Episodic Other gastrointestinal disorders (20 sources) Irritable bowel syndrome; Translations: [Irritable bowel syndrome without diarrhea] 01-26-2023 Chronic Other gastrointestinal disorders (2 sources) Dysphagia 09-10-2021 Episodic Other gastrointestinal disorders (20 sources) Diarrhea; Translations: [Diarrhea, unspecified] 01-26-2023 Episodic Other infections; including parasitic (10 sources) Personal history of other infectious and parasitic diseases 01-26-2023 Episodic Other inflammatory condition of skin (5 sources) Finding of face; Translations: [Erythematous condition, unspecified] 02-01-2013 Episodic Other injuries and conditions due to external causes (5 sources) At risk for falls ; Translations: [History of falling] 12-29-2017 Episodic Other nutritional; endocrine; and metabolic disorders (20 sources) Body mass index 30+ - obesity; Translations: [Body mass index (BMI) 33.0-33.9, adult] 2018 Chronic Other nutritional; endocrine; and metabolic disorders (20 sources) Obese class I; Translations: [Obesity, unspecified] 12-28-2016 Chronic Other screening for suspected conditions (not mental disorders or infectious disease) (20 sources) Patient encounter status; Translations: [Encounter for screening for lipoid disorders] 2018 Episodic Other skin disorders (10 sources) Benign neoplasm of skin of head and neck; Translations: [Actinic keratosis] 01-26-2023 Episodic Other skin disorders (5 sources) Neoplasm of skin of cheek; Translations: [Actinic keratosis] 02-24-2015 Episodic Other skin disorders (5 sources) Sebaceous cyst of skin; Translations: [Sebaceous cyst] 11-13-2010 Episodic Other upper respiratory infections (10 sources) Sinusitis; Translations: [Chronic sinusitis, unspecified] 01-15-2015 Chronic Other upper respiratory infections (20 sources) Acute sinusitis; Translations: [Acute sinusitis, unspecified] 03-31-2020 Episodic Residual codes; unclassified (20 sources) Insomnia; Translations: [Insomnia, unspecified] 01-26-2023 Episodic Residual codes; unclassified (10 sources) Edema of lower extremity; Translations: [Localized edema] 01-26-2023 Episodic Residual codes; unclassified (5 sources) Influenza vaccination declined; Translations: [Immunization not carried out because of patient refusal] 12-28-2016 Episodic Systemic lupus erythematosus and connective tissue disorders (20 sources) Sjogren's syndrome; Translations: [Sicca syndrome, unspecified] 01-26-2023 Chronic Thyroid disorders (15 sources) Acquired hypothyroidism; Translations: [Hypothyroidism, unspecified] 01-26-2023 Chronic Unclassified (5 sources) 12-10-2022 Unclassified (5 sources) 12-10-2022 Unclassified (5 sources) 12-10-2022 Urinary tract infections (10 sources) Urinary tract infectious disease; Translations: [Urinary tract infection, site not specified] 12-05-2020 Episodic Viral infection (5 sources) Viral disease; Translations: [Viral infection, unspecified] 01-05-2010 Episodic Results Test Name Value Interpretation Reference Range Facil ity Vital Signs Date Time Vital Sign Value Performing Clinician Faci lity 04-01-2023 11:25-0500 Body height 170.18 cm Coral Tong MA [facility] 04-01-2023 11:25-0500 Body mass index (BMI) [Ratio] 33.36 kg/m2 [facility] 04-01-2023 11:25-0500 Body surface area Derived from formula 2.08 m2 Coral [facility]. 04-01-2023 11:25-0500 Body temperature 98.1 [degF] Coral Tong MA [facility]. 04-01-2023 11:25-0500 Body weight 96.62 kg Coral Tong MA [facility] [employer]. 04-01-2023 11:25-0500 Diastolic blood pressure 81 mm[Hg] Coral Tong MA [facility] [employer] [facility]. 04-01-2023 11:25-0500 Heart rate 63 /min [facility]. 04-01-2023 11:25-0500 Inhaled oxygen concentration 20 % Coral Tong MA [facility]. 04-01-2023 11:25-0500 SaO2% (BldA) [Mass fraction] 99 % Coral Tong MA [facility] [employer] 04-01-2023 11:25-0500 Systolic blood pressure 161 mm[Hg] Coral Tong MA [facility]. 01-26-2023 21:01-0500 Diastolic blood pressure 102 mm[Hg] Luke E Reny PA-C Work Phone: [facility]. 01-26-2023 21:01-0500 Systolic blood pressure 160 mm[Hg] Luke E Reny PA-C Work Phone: [facility]. 01-26-2023 13:38-0500 Body height 170.18 cm Luke E Reny PA-C Work Phone: [facility]. 01-26-2023 13:38-0500 Body mass index (BMI) [Ratio] 33.67 kg/m2 Luke E Reny PA-C Work Phone: [facility]. 01-26-2023 13:38-0500 Body surface area Derived from formula 2.09 m2 Luke E Reny PA-C Work Phone: [facility]. 01-26-2023 13:38-0500 Body weight 97.52 kg Luke E Reny PA-C Work Phone: [facility]. 01-26-2023 13:38-0500 Diastolic blood pressure 68 mm[Hg] Luke E Reny PA-C Work Phone: [facility]. 01-26-2023 13:38-0500 Heart rate 62 /min Luke E Reny PA-C Work Phone: [facility]. 01-26-2023 13:38-0500 Systolic blood pressure 176 mm[Hg] Luke E Reny PA-C Work Phone: [facility].; [facility]. 12-10-2022 08:33-0400 Body height 170.18 cm Luke E Reny PA-C Work Phone: [facility]. 12-10-2022 08:33-0400 Body mass index (BMI) [Ratio] 32.89 kg/m2 Luke E Reny PA-C Work Phone: [facility]. 12-10-2022 08:33-0400 Body surface area Derived from formula 2.06 m2 Luke E Reny PA-C Work Phone: [facility]. 12-10-2022 08:33-0400 Body weight 95.26 kg Luke E Reny PA-C Work Phone: [facility]. 12-10-2022 08:33-0400 Diastolic blood pressure 84 mm[Hg] Luke E Reny PA-C Work Phone: [facility]. 12-10-2022 08:33-0400 Systolic blood pressure 142 mm[Hg] Luke E Reny PA-C Work Phone: [facility]. 06-10-2022 08:27-0400 Body height 170.18 cm Olive Rendon MA [facility]. 06-10-2022 08:27-0400 Body mass index (BMI) [Ratio] 33.52 kg/m2 Olive Justice CHANDRA [facility] [facility] 06-10-2022 08:27-0400 Body surface area Derived from formula 2.08 m2 Olive Justice CHANDRA [facility] [employer] [employer] [employer] 06-10-2022 08:27-0400 Body weight 97.07 kg Olivehanna Rendon CORAZON [facility] 06-10-2022 08:27-0400 Diastolic blood pressure 75 mm[Hg] Olivehanna Rendon CORAZON [facility] [employer] [facility] 06-10-2022 08:-0400 Heart rate 66 /min Olive Justice CHANDRA [facility] [employer] [facility] 06-10-2022 08:27-0400 Systolic blood pressure 123 mm[Hg] Olive Justice CHANDRA [facility] [employer] 12-01-2021 08:02-0400 Body height 170.18 cm Dee Dee Noble KAMILLA [facility] [employer] [facility] [employer] 12-01-2021 08:02-0400 Body mass index (BMI) [Ratio] 34.46 kg/m2 Dee Dee Noble KAMILLA [facility] [employer] [facility] [employer] 12-01-2021 08:02-0400 Body surface area Derived from formula 2.11 m2 Gisela Aide INDUSTRIAL REHABILITATION CONSULTANT [facility] [employer] [facility] [employer] 12-01-2021 08:02-0400 Body weight 99.79 kg Gisela Speers INDUSTRIAL REHABILITATION CONSULTANT [facility] [employer] [facility] [employer] 12-01-2021 08:02-0400 Diastolic blood pressure 81 mm[Hg] IgselaMayra Julesey KAMILLA [facility] [employer] [facility] [employer] 12-01-2021 08:02-0400 Heart rate 69 /min GiselaMayra Noble LPN [facility] [employer] [facility] [employer] 12-01-2021 08:02-0400 Systolic blood pressure 129 mm[Hg] Dee Dee Noble KAMILLA [facility]. 09-21-2021 07:58-0400 Body height 170.18 cm Katie Felipe RN [facility] [employer]. 09-21-2021 07:58-0400 Body mass index (BMI) [Ratio] 35.24 kg/m2 Katie Felipe RN [facility] [employer] [facility]. 09-21-2021 07:58-0400 Body surface area Derived from formula 2.13 m2 Katie Felipe RN [facility] [employer] [facility]. 09-21-2021 07:58-0400 Body weight 102.06 kg Katie Felipe RN [facility] [employer] [facility]. 09-21-2021 07:58-0400 Diastolic blood pressure 71 mm[Hg] Katie Felipe RN [facility] [employer] [facility]. 09-21-2021 07:58-0400 Heart rate 66 /min Katie Felipe RN [facility].; [facility] [employer] [facility]. 09-21-2021 07:58-0400 Systolic blood pressure 110 mm[Hg] Katie Felipe RN [facility].; [facility] [employer] [facility]. 01-20-2021 10:59-0500 Body height 170.18 cm Liyah Sepulveda LPN [facility].; [facility] [employer] [facility]. 01-20-2021 10:59-0500 Body mass index (BMI) [Ratio] 33.67 kg/m2 Liyah Sepulveda LPN [facility] [employer] [facility].; [facility]. 01-20-2021 10:59-0500 Body surface area Derived from formula 2.09 m2 Liyah Sepulveda LPN [facility], [facility].; [facility]. 01-20-2021 10:59-0500 Body weight 97.52 kg Liyah Sepulveda LPN [facility], [facility].; [facility], [facility]. 01-20-2021 10:59-0500 Diastolic blood pressure 77 mm[Hg] Liyah Sepulveda LPN [facility], [facility].; [facility], [facility]. 01-20-2021 10:59-0500 Heart rate 73 /min Liyah Sepulveda LPN [facility], [facility].; [facility] [employer] [facility], [facility]. 01-20-2021 10:59-0500 Systolic blood pressure 127 mm[Hg] Liyah Sepulveda LPN [facility], [facility].; [facility] [employer] [facility], [facility]. 12-05-2020 10:41-0400 Body height 170.18 cm Morelia Hauser LPN [facility], [facility].; [facility] [employer] [facility], [facility]. 12-05-2020 10:41-0400 Body mass index (BMI) [Ratio] 34.3 kg/m2 Morelia Hauser LPN [facility], [facility].; [facility], [facility]. 12-05-2020 10:41-0400 Body surface area Derived from formula 2.1 m2 Morelia Hauser LPN [facility], [facility].; [facility] [employer] [facility], [facility]. 12-05-2020 10:41-0400 Body weight 99.34 kg Morelia Hauser LPN [facility], [facility].; [facility] [employer] [facility], [facility]. 12-05-2020 10:41-0400 Diastolic blood pressure 77 mm[Hg] Morelia Hauser LPN [facility], [facility].; [facility] [employer] [facility], [facility]. 12-05-2020 10:41-0400 Heart rate 62 /min Morelia Hauser LPN [facility], [facility].; [facility] [employer] [facility], [facility]. 12-05-2020 10:41-0400 Systolic blood pressure 134 mm[Hg] Morelia Hauser LPN [facility], [facility].; [employer], [facility]. 10-06-2020 08:19-0400 Body height 170.18 cm Katie Felipe RN [facility], [facility].; [employer], [facility]. 10-06-2020 08:19-0400 Body mass index (BMI) [Ratio] 34.3 kg/m2 Katie Felipe RN [facility]. 10-06-2020 08:19-0400 Body surface area Derived from formula 2.1 m2 Katie Felipe RN [facility].; [facility]. 10-06-2020 08:19-0400 Body weight 99.34 kg Katie Felipe RN [facility].; [facility]. 10-06-2020 08:19-0400 Diastolic blood pressure 71 mm[Hg] Katie Felipe RN [facility].; [facility]. 10-06-2020 08:19-0400 Heart rate 67 /min Katie Felipe RN [facility].; [facility]. 10-06-2020 08:19-0400 Systolic blood pressure 132 mm[Hg] Katie Felipe RN [facility].; [facility] [employer] [facility]. 03-11-2020 09:35-0500 Body height 170.18 cm Liyah Sepulveda LPN [facility].; [facility]. 03-11-2020 09:35-0500 Body mass index (BMI) [Ratio] 33.99 kg/m2 Liyah Sepulveda LPN [facility].; [facility] [employer] [facility]. 03-11-2020 09:35-0500 Body surface area Derived from formula 2.09 m2 Liyah Sepulveda LPN [facility].; [facility] [employer] [facility]. 03-11-2020 09:35-0500 Body temperature 98.1 [degF] Liyah Sepulveda LPN [facility], [facility].; [facility] [employer] [facility]. 03-11-2020 09:35-0500 Body weight 98.43 kg Liyah Sepulveda LPN [facility].; [facility] [employer] [facility], [facility]. 03-11-2020 09:35-0500 Heart rate 66 /min Liyah Sepulveda LPN [facility], [facility].; [facility]. 03-11-2020 09:35-0500 Inhaled oxygen concentration 20 % Liyah Sepulveda LPN [facility].; [facility]. 03-11-2020 09:35-0500 SaO2% (BldA) [Mass fraction] 97 % Liyah Sepulveda LPN [facility].; [facility]. 03-03-2020 08:24-0500 Body height 170.18 cm Katie Felipe RN [facility].; [facility] [employer] [facility]. 03-03-2020 08:24-0500 Body mass index (BMI) [Ratio] 33.67 kg/m2 Katie Felipe RN [facility].; [facility]. 03-03-2020 08:24-0500 Body surface area Derived from formula 2.09 m2 Katie Felipe RN [facility].; [facility] [facility]. 03-03-2020 08:24-0500 Body temperature 98.1 [degF] Katie Felipe RN [facility].; [facility] [employer] [facility]99[facility]. 03-03-2020 08:24-0500 Body weight 97.52 kg Katie Felipe RN [facility].; [facility]. 03-03-2020 08:24-0500 Inhaled oxygen concentration 20 % Katie Felipe RN [facility].; [facility] [employer] [facility]. 03-03-2020 08:24-0500 SaO2% (BldA) [Mass fraction] 95 % Katie Felipe RN [facility].; [place] [employer] [facility]. 01-01-2020 13:26-0500 Body height 170.18 cm Katie Felipe RN [facility] [employer] [facility].; [place] [employer] [facility]. 01-01-2020 13:26-0500 Body mass index (BMI) [Ratio] 33.52 kg/m2 Katie Felipe RN [facility] [employer] [facility].; [facility] [employer] [facility]99[facility]. 01-01-2020 13:26-0500 Body surface area Derived from formula 2.08 m2 Katie Felipe RN [place] [employer] [facility]99[employer]resents [employer].; [employer]. 01-01-2020 13:26-0500 Body temperature 98.4 [degF] Katie Felipe RN [facility] [employer] [facility].; [employer] 01-01-2020 13:26-0500 Body weight 97.07 kg Katie Felipe RN [facility] [employer] [facility].; [employer] 01-01-2020 13:26-0500 Diastolic blood pressure 60 mm[Hg] Katie Felipe RN [facility] [employer] [facility].; [employer] 01-01-2020 13:26-0500 Heart rate 72 /min Katie Felipe RN [facility].; [employer], [employer]. 01-01-2020 13:26-0500 Systolic blood pressure 151 mm[Hg] Katie Felipe RN [employer].; [employer], [employer]. 12-07-2019 11:22-0400 Body height 170.18 cm Liyah Sepulveda LPN [place] [employer] [facility], [facility].; [employer]. 12-07-2019 11:22-0400 Body mass index (BMI) [Ratio] 33.83 kg/m2 Liyah Sepulveda LPN [employer] [facility].; [employer], [employer]. 12-07-2019 11:22-0400 Body surface area Derived from formula 2.09 m2 Liyah Sepulveda LPN [place] [employer] [facility], [facility].; [employer]. 12-07-2019 11:22-0400 Body weight 97.98 kg Liyah Sepulveda LPN [facility] [employer], [facility].; [employer]. 12-07-2019 11:22-0400 Diastolic blood pressure 82 mm[Hg] Liyah Sepulveda LPN [employer], [employer]. 12-07-2019 11:22-0400 Heart rate 64 /min Liyah Sepulveda LPN [employer], [facility].; [employer], [employer]. 12-07-2019 11:22-0400 Systolic blood pressure 146 mm[Hg] Liyah Sepulveda LPN [employer] [facility].; [employer], [employer]. 09-18-2019 09:07-0400 Body height 170.18 cm Liyah Sepulveda LPN [facility], [facility].; [employer] [facility]99[facility]. 09-18-2019 09:07-0400 Body mass index (BMI) [Ratio] 34.14 kg/m2 Liyah Sepulveda LPN [facility], Inc.; [place] [employer] [facility], Inc. 09-18-2019 09:07-0400 Body surface area Derived from formula 2.1 m2 Liyah Sepulveda LPN [facility], [facility].; [employer] [facility], [facility]. 09-18-2019 09:07-0400 Body weight 98.88 kg Liyah Sepulveda LPN [facility], [facility].; [employer] [facility], [facility]. 09-18-2019 09:07-0400 Diastolic blood pressure 73 mm[Hg] Liyah Sepulveda LPN [facility], [facility].; [employer] [facility], [facility]. 09-18-2019 09:07-0400 Heart rate 59 /min Liyah Sepulveda LPN [facility], [facility].; [employer], [facility]. 09-18-2019 09:07-0400 Systolic blood pressure 135 mm[Hg] Liyah Sepulveda LPN [facility], [facility].; [employer] [facility], [facility]. 02-23-2019 14:26-0500 Body height 170.18 cm Mary Mclean INDUSTRIAL REHABILITATION CONSULTANT [facility], [facility].; [employer], [employer] 02-23-2019 14:26-0500 Body mass index (BMI) [Ratio] 34.61 kg/m2 Mary Mclean LPN [place] [employer] [facility], Inc.; [employer], [employer] 02-23-2019 14:26-0500 Body surface area Derived from formula 2.11 m2 Mary Mclean INDUSTRIAL REHABILITATION CONSULTANT [place] [employer] [facility], [facility].; [employer], [employer]. 02-23-2019 14:26-0500 Body weight 100.25 kg Mary Mclean LPN [place] [employer] [facility], Inc.; [employer], [employer] 02-23-2019 14:26-0500 Diastolic blood pressure 83 mm[Hg] Mary Mclean [facility] [employer] [facility], Inc.; [employer], [employer]. 02-23-2019 14:26-0500 Heart rate 65 /min Mary Mclean INDUSTRIAL REHABILITATION CONSULTANT [employer]. 02-23-2019 14:26-0500 Systolic blood pressure 149 mm[Hg] Mary Mclean [facility].; [employer] 10-27-2018 10:26-0400 Body height 170.18 cm Mary Mclean [facility].; [employer]. 10-27-2018 10:26-0400 Body mass index (BMI) [Ratio] 33.36 kg/m2 Mary Mclean [facility] [employer]. 10-27-2018 10:26-0400 Body surface area Derived from formula 2.08 m2 Mary Mclean [facility] Inc.; [employer]. 10-27-2018 10:26-0400 Body weight 96.62 kg Mary Mclean [facility] Inc.; [employer]. 10-27-2018 10:26-0400 Diastolic blood pressure 75 mm[Hg] Mary Mclean INDUSTRIAL REHABILITATION CONSULTANT [employer].; [employer]. 10-27-2018 10:26-0400 Heart rate 61 /min Mary Mclean [facility] Inc.; [employer]. 10-27-2018 10:26-0400 Systolic blood pressure 125 mm[Hg] Mary [facility]clean [facility].; [employer]. 06-26-2018 09:21-0400 Body height 170.18 cm Hailee Reis MD Work Phone: [employer].; [employer]. 06-26-2018 09:21-0400 Body mass index (BMI) [Ratio] 34.3 kg/m2 Hailee Reis MD Work Phone: [employer].; [employer]. 06-26-2018 09:21-0400 Body surface area Derived from formula 2.1 m2 Hailee Reis MD Work Phone: [employer].; [employer] 06-26-2018 09:21-0400 Body weight 99.34 kg Hailee Reis MD Work Phone: [employer].; [employer] 06-26-2018 09:21-0400 Diastolic blood pressure 81 mm[Hg] Hailee Reis MD Work Phone: [employer].; [employer] 06-26-2018 09:21-0400 Heart rate 59 /min Hailee Reis MD Work Phone: [employer].; [employer] 06-26-2018 09:21-0400 Systolic blood pressure 154 mm[Hg] Hailee Reis MD Work Phone: [employer].; [employer] 2018 11:02-0400 Body height 170.18 cm Nina Diego LPN [employer].; [employer] 2018 11:02-0400 Body mass index (BMI) [Ratio] 34.77 kg/m2 Nina Dieog LPN [employer].; [employer] 2018 11:02-0400 Body surface area Derived from formula 2.11 m2 Nina Diego LPN [employer].; [employer] 2018 11:02-0400 Body weight 100.7 kg Nina Diego LPN [employer], [employer].; [employer] 2018 11:02-0400 Diastolic blood pressure 89 mm[Hg] Nina Diego LPN [employer], [employer].; [employer] 2018 11:02-0400 Heart rate 58 /min Nina Diego LPN [employer], [employer].; [employer] 2018 11:02-0400 Systolic blood pressure 134 mm[Hg] Nina Diego LPN [employer].; [employer] 03-10-2018 16:31-0500 Body height 170.18 cm Rod Granado MD Work Phone: [employer].; [employer] 03-10-2018 16:31-0500 Body mass index (BMI) [Ratio] 35.24 kg/m2 Rod Granado MD Work Phone: [employer].; [employer] 03-10-2018 16:31-0500 Body surface area Derived from formula 2.13 m2 Rod Granado MD Work Phone: [employer].; [employer] 03-10-2018 16:31-0500 Body weight 102.06 kg Rod Granado MD Work Phone: [employer].; [employer] 03-10-2018 16:31-0500 Diastolic blood pressure 78 mm[Hg] Rod Granado MD Work Phone: [employer].; [employer] 03-10-2018 16:31-0500 Heart rate 66 /min Rod Granado MD Work Phone: [employer].; [employer] 03-10-2018 16:31-0500 Systolic blood pressure 132 mm[Hg] Rod Granado MD Work Phone: [employer].; [employer] 12-29-2017 07:53-0500 Body height 170.18 cm Hemanta Gogoi (scribe) [employer].; [employer] 12-29-2017 07:53-0500 Body mass index (BMI) [Ratio] 33.67 kg/m2 Hemanta Gogoi (scribe) [employer].; [employer] 12-29-2017 07:53-0500 Body surface area Derived from formula 2.09 m2 Hemanta Gogoi (scribe) [employer].; [employer] 12-29-2017 07:53-0500 Body weight 97.52 kg Hemanta Gogoi (scribe) [employer].; [employer], [employer] 12-29-2017 07:53-0500 Diastolic blood pressure 71 mm[Hg] Raphael Arana (scribe) [facility], Inc.; [employer] 12-29-2017 07:53-0500 Heart rate 55 /min Hemtre Arana (scribe) [facility], Inc.; [employer], [employer] 12-29-2017 07:53-0500 Systolic blood pressure 130 mm[Hg] Raphael Arana (scribe) [facility], Inc.; [employer], [employer] 07-15-2017 07:57-0400 Body height 170.18 cm Constanza K Mutersbaugh [facility] [employer] [facility], Inc.; [employer], [employer] 07-15-2017 07:57-0400 Body mass index (BMI) [Ratio] 33.05 kg/m2 Constanza K Mutersbaugh INDUSTRIAL REHABILITATION CONSULTANT [place] [employer] [facility], Inc.; [employer], [employer] 07-15-2017 07:57-0400 Body surface area Derived from formula 2.07 m2 Constanza K Mutersbaugh INDUSTRIAL REHABILITATION CONSULTANT [employer], [employer].; [employer], [employer] 07-15-2017 07:57-0400 Body weight 95.71 kg Constanza K Mutersbaugh INDUSTRIAL REHABILITATION CONSULTANT [employer] [facility], Inc.; [employer], [employer]. 07-15-2017 07:57-0400 Diastolic blood pressure 64 mm[Hg] Constanza K Mutersbaugh INDUSTRIAL REHABILITATION CONSULTANT [employer] [facility], Inc.; [employer], [employer] 07-15-2017 07:57-0400 Heart rate 61 /min Constanza K Mutersbaugh INDUSTRIAL REHABILITATION CONSULTANT [employer], [employer].; [employer], [employer]. 07-15-2017 07:57-0400 Systolic blood pressure 117 mm[Hg] Constanza K Mutersbaugh INDUSTRIAL REHABILITATION CONSULTANT [employer], [employer].; [employer], [employer] 06-28-2017 07:52-0400 Body height 170.18 cm Buck FrancoPikeville Medical Centeribe) [place] [employer] [facility], Inc.; [employer], [employer]. 06-28-2017 07:52-0400 Body mass index (BMI) [Ratio] 33.2 kg/m2 Buck Lee (Scribradha) [facility] [employer] [facility], Inc.; [employer]. 06-28-2017 07:52-0400 Body surface area Derived from formula 2.07 m2 Buck Howard (Scribe) [place] [employer] [facility], Inc.; [employer] 06-28-2017 07:52-0400 Body weight 96.16 kg Buck Howard (Rikkiradha) [employer] [facility], Inc.; [employer]. 06-28-2017 07:52-0400 Diastolic blood pressure 74 mm[Hg] Buck Lee ([facility]) [employer] [facility], Inc.; [employer], [employer]. 06-28-2017 07:52-0400 Heart rate 63 /min Buck Lee FrancoRikkiradha) [place] [employer] [facility], Inc.; [employer]. 06-28-2017 07:52-0400 Systolic blood pressure 134 mm[Hg] Buck Howard (Sarysadi) [facility] [employer] [facility], Inc.; [employer]. 05-05-2017 13:35-0400 Body height 170.18 cm Nina Diego LPN [employer] [facility], Inc.; [employer], [employer]. 05-05-2017 13:35-0400 Body mass index (BMI) [Ratio] 32.42 kg/m2 Nina Diego LPN [employer], [employer].; [employer], [employer]. 05-05-2017 13:35-0400 Body surface area Derived from formula 2.05 m2 Nina Diego LPN [employer], [employer].; [employer]. 05-05-2017 13:35-0400 Body temperature 98.1 [degF] Nina Diego LPN [employer], [employer].; [employer], [employer]. 05-05-2017 13:35-0400 Body weight 93.9 kg Nina Diego LPN [employer], [employer].; [employer], [employer]. 05-05-2017 13:35-0400 Diastolic blood pressure 82 mm[Hg] Nina Diego LPN [employer] [employer], [employer].; [employer]. 05-05-2017 13:35-0400 Systolic blood pressure 135 mm[Hg] Nina Diego LPN [facility].; [employer]. 12-28-2016 08:14-0500 Body height 170.18 cm Katie Felipe RN [facility].; [employer]. 12-28-2016 08:14-0500 Body mass index (BMI) [Ratio] 35.24 kg/m2 Katie Felipe RN [facility].; [employer]. 12-28-2016 08:14-0500 Body surface area Derived from formula 2.13 m2 Katie Felipe RN [facility].; [employer]. 12-28-2016 08:14-0500 Body weight 102.06 kg Katie Felipe RN [facility].; [employer]. 12-28-2016 08:14-0500 Diastolic blood pressure 70 mm[Hg] Katie Felipe RN [facility].; [employer]. 12-28-2016 08:14-0500 Heart rate 61 /min Katie Felipe RN [facility].; [employer]. 12-28-2016 08:14-0500 Systolic blood pressure 112 mm[Hg] Katie Felipe RN [facility].; [employer]. 11-01-2016 11:36-0400 Body height 170.18 cm Margarito Santacruz LPN [facility].; [employer]. 11-01-2016 11:36-0400 Body mass index (BMI) [Ratio] 35.4 kg/m2 Neilee L Vess KAMILLA [employer].; [employer]. 11-01-2016 11:36-0400 Body surface area Derived from formula 2.13 m2 Deloresilee L Vess KAMILLA [employer].; [employer]. 11-01-2016 11:36-0400 Body weight 102.51 kg Deloresilee L Vess KAMILLA [facility].; [employer]. 11-01-2016 11:36-0400 Diastolic blood pressure 67 mm[Hg] Neilee L Vess INDUSTRIAL REHABILITATION CONSULTANT [employer] [facility], Inc.; [employer]. 11-01-2016 11:36-0400 Heart rate 63 /min Neilee L Vess INDUSTRIAL REHABILITATION CONSULTANT [employer] [employer], Inc.; [employer] 11-01-2016 11:36-0400 Systolic blood pressure 124 mm[Hg] Neilee L Vess INDUSTRIAL REHABILITATION CONSULTANT [employer], [employer].; [employer]. 10-28-2016 10:41-0400 Body height 170.18 cm Constanza K Mutersbaugh INDUSTRIAL REHABILITATION CONSULTANT [employer]. 10-28-2016 10:41-0400 Body mass index (BMI) [Ratio] 35.87 kg/m2 Constanza K Mutersbaugh INDUSTRIAL REHABILITATION CONSULTANT [employer], [employer].; [employer]. 10-28-2016 10:41-0400 Body surface area Derived from formula 2.14 m2 Constanza K Mutersbaugh INDUSTRIAL REHABILITATION CONSULTANT [employer] [facility].; [employer]. 10-28-2016 10:41-0400 Body weight 103.87 kg Constanza K Mutersbaugh INDUSTRIAL REHABILITATION CONSULTANT [facility].; [employer]. 10-28-2016 10:41-0400 Diastolic blood pressure 77 mm[Hg] Constanza K Mutersbaugh INDUSTRIAL REHABILITATION CONSULTANT [employer], [employer].; [employer]. 10-28-2016 10:41-0400 Heart rate 62 /min Constanza K Mutersbaugh INDUSTRIAL REHABILITATION CONSULTANT [employer] [facility].; [employer]. 10-28-2016 10:41-0400 Systolic blood pressure 157 mm[Hg] Constanza K Mutersbaugh INDUSTRIAL REHABILITATION CONSULTANT [facility].; [employer]. 10-11-2016 08:33-0400 Body height 170.18 cm Buck Hutson) [employer] [facility], [facility].; [employer]. 10-11-2016 08:33-0400 Body mass index (BMI) [Ratio] 36.18 kg/m2 Buck Hutson) [facility].; [employer]. 10-11-2016 08:33-0400 Body surface area Derived from formula 2.15 m2 Buck Lee (Saryibradha) [place] [employer] [facility], [facility].; [employer] 10-11-2016 08:33-0400 Body temperature 98.8 [degF] Buck Lee (Scribe) [place] [employer] [facility], Inc.; [facility]. 10-11-2016 08:33-0400 Body weight 104.78 kg Buck Lee (Scribe) [place] [employer] [facility], [facility].; [employer]. 10-11-2016 08:33-0400 Diastolic blood pressure 75 mm[Hg] Buck Lee ([facility]) [employer] [facility], Inc.; [facility]. 10-11-2016 08:33-0400 Heart rate 61 /min Buck Lee (Saryibe) [place] [employer] [facility], Inc.; [facility]. 10-11-2016 08:33-0400 Systolic blood pressure 141 mm[Hg] Buck Lee (Saryibe) [place] [employer] [facility], Inc.; [employer]. 07-20-2016 13:11-0400 Body height 170.18 cm Constanza K Mutersbaugh INDUSTRIAL REHABILITATION CONSULTANT [employer] [facility], Inc.; [employer]. 07-20-2016 13:11-0400 Body mass index (BMI) [Ratio] 36.34 kg/m2 Constanza K Mutersbaugh INDUSTRIAL REHABILITATION CONSULTANT [employer] [facility]99[facility]resents [employer].; [facility]. 07-20-2016 13:11-0400 Body surface area Derived from formula 2.15 m2 Constanza K Mutersbaugh INDUSTRIAL REHABILITATION CONSULTANT [employer].; [employer]. 07-20-2016 13:11-0400 Body weight 105.24 kg Constanza K Mutersbaugh INDUSTRIAL REHABILITATION CONSULTANT [employer] [employer], [employer].; [employer] 07-20-2016 13:11-0400 Diastolic blood pressure 83 mm[Hg] Constanza K Mutersbaugh INDUSTRIAL REHABILITATION CONSULTANT [employer] [employer], [employer].; [employer]. 07-20-2016 13:11-0400 Heart rate 63 /min Constanza K Mutersbaugh INDUSTRIAL REHABILITATION CONSULTANT [place] [employer] [facility], Inc.; [employer], [employer] 07-20-2016 13:11-0400 Systolic blood pressure 140 mm[Hg] Constanza K Mutersbaugh INDUSTRIAL REHABILITATION CONSULTANT [place] [employer] [facility], Inc.; [employer] 06-02-2015 13:08-0400 Body height 170.18 cm Constanza Janelle Louersbaugh INDUSTRIAL REHABILITATION CONSULTANT [place] [employer] [facility], Inc.; [employer] 06-02-2015 13:08-0400 Body mass index (BMI) [Ratio] 35.87 kg/m2 Constanza K Mutersbaugh INDUSTRIAL REHABILITATION CONSULTANT [place] [employer] [facility], Inc.; [employer], [employer] 06-02-2015 13:08-0400 Body surface area Derived from formula 2.14 m2 Constanza K Mutersbaugh INDUSTRIAL REHABILITATION CONSULTANT [place] [employer] [facility], Inc.; [employer] 06-02-2015 13:08-0400 Body weight 103.87 kg Constanza K Mutersbaugh INDUSTRIAL REHABILITATION CONSULTANT [place] [employer] [facility], Inc.; [employer] 06-02-2015 13:08-0400 Diastolic blood pressure 67 mm[Hg] Constanza K Mutersbaugh INDUSTRIAL REHABILITATION CONSULTANT [employer] [facility], Inc.; [employer] 06-02-2015 13:08-0400 Heart rate 62 /min Constanza K Mutersbaugh INDUSTRIAL REHABILITATION CONSULTANT [employer] [facility], Inc.; [employer] 06-02-2015 13:08-0400 Systolic blood pressure 121 mm[Hg] Constanza K Mutersbaugh INDUSTRIAL REHABILITATION CONSULTANT [facility] [employer] [facility], Inc.; [employer] 02-24-2015 08:50-0500 Body height 170.18 cm Gisela SpeersA.O. Fox Memorial HospitalDemand Energy Networks [facility], Inc.; [employer], Inc[employer] 02-24-2015 08:50-0500 Body mass index (BMI) [Ratio] 35.4 kg/m2 Gisela Aide [facility], Inc.; [employer] 02-24-2015 08:50-0500 Body surface area Derived from formula 2.13 m2 [facility], Inc.; [employer] 02-24-2015 08:50-0500 Body weight 102.51 kg Dee Dee Noble [facility], [facility].; [employer] 02-24-2015 08:50-0500 Diastolic blood pressure 79 mm[Hg] Dee Dee Noble [facility], Inc.; [employer] 02-24-2015 08:50-0500 Heart rate 56 /min Dee Dee Noble [facility], Inc.; [employer] 02-24-2015 08:50-0500 Systolic blood pressure 121 mm[Hg] Dee Dee Noble [facility], Inc.; [employer] 01-13-2015 14:19-0500 Body height 170.18 cm Hailee Reis MD Work Phone: [facility].; [employer] 01-13-2015 14:19-0500 Body mass index (BMI) [Ratio] 34.93 kg/m2 Hailee Reis MD Work Phone: [employer].; [employer] 01-13-2015 14:19-0500 Body surface area Derived from formula 2.12 m2 Hailee Reis MD Work Phone: [facility].; [employer]. 01-13-2015 14:19-0500 Body temperature 98.8 [degF] Hailee Reis MD Work Phone: [facility].; [employer]. 01-13-2015 14:19-0500 Body weight 101.15 kg Hailee Reis MD Work Phone: [facility].; [employer]. 01-13-2015 14:19-0500 Diastolic blood pressure 76 mm[Hg] Hailee Reis MD Work Phone: [facility].; [employer]. 01-13-2015 14:19-0500 Heart rate 65 /min Hailee Reis MD Work Phone: [facility] [employer] [facility], [employer] 01-13-2015 14:19-0500 Systolic blood pressure 139 mm[Hg] Hailee Reis MD Work Phone: [facility] [employer], [employer].; [employer] 12-27-2014 09:08-0500 Body height 170.18 cm Yakelinjagjit Fuentes INDUSTRIAL REHABILITATION CONSULTANT [employer] [employer], [employer].; [employer] 12-27-2014 09:08-0500 Body mass index (BMI) [Ratio] 35.08 kg/m2 Yakelin Emily Fuentes [facility] Inc.; [employer] 12-27-2014 09:08-0500 Body surface area Derived from formula 2.12 m2 Yakelin Emily Fuentes INDUSTRIAL REHABILITATION CONSULTANT [employer], [employer].; [employer] 12-27-2014 09:08-0500 Body weight 101.61 kg Yakelin Fuentes INDUSTRIAL REHABILITATION CONSULTANT [employer] [employer], [employer].; [employer] 12-27-2014 09:08-0500 Diastolic blood pressure 73 mm[Hg] Yakelinjagjit Fuentes INDUSTRIAL REHABILITATION CONSULTANT [employer], [employer].; [employer], [employer]. 12-27-2014 09:08-0500 Heart rate 57 /min Yakelin Fuentes INDUSTRIAL REHABILITATION CONSULTANT [employer] [employer], [employer].; [employer] 12-27-2014 09:08-0500 Systolic blood pressure 133 mm[Hg] Yakelin Fuentes LPN [facility] [employer], [employer].; [employer] 12-06-2014 08:22-0400 Body height 170.18 cm Yakelin Emily Fuentes INDUSTRIAL REHABILITATION CONSULTANT [employer], [employer]. 12-06-2014 08:22-0400 Body mass index (BMI) [Ratio] 34.3 kg/m2 Yakelin Emily Fuentes LPN [employer] 12-06-2014 08:22-0400 Body surface area Derived from formula 2.1 m2 Yakelin Fuentes INDUSTRIAL REHABILITATION CONSULTANT [employer]. 12-06-2014 08:22-0400 Body temperature 97.4 [degF] Yakelin Emily Fuentes LPN [employer]. 12-06-2014 08:22-0400 Body weight 99.34 kg Yakelin Emily Fuentes LPN [employer]. 12-06-2014 08:22-0400 Diastolic blood pressure 80 mm[Hg] Yakelin Fuentes INDUSTRIAL REHABILITATION CONSULTANT [employer], [employer]. 12-06-2014 08:22-0400 Heart rate 67 /min Yakelinantonia Fuentes [facility] [employer], [employer]. 12-06-2014 08:22-0400 Systolic blood pressure 119 mm[Hg] Yakelin Emily Fuentes LPN [employer]. 11-04-2014 12:27-0400 Body temperature 97.3 [degF] Lac[facility] Porter [facility] [employer]. 11-04-2014 12:27-0400 Body weight 102.06 kg Lacie Porter INDUSTRIAL REHABILITATION CONSULTANT [employer], [employer]. 11-04-2014 12:27-0400 Diastolic blood pressure 80 mm[Hg] Lacie Porter INDUSTRIAL REHABILITATION CONSULTANT [employer]. 11-04-2014 12:27-0400 Heart rate 72 /min Lacie Porter LPN [employer], [employer]. 11-04-2014 12:27-0400 Inhaled oxygen concentration 20 % Lacie Porter LPN [employer], [employer].; [employer]. 11-04-2014 12:27-0400 SaO2% (BldA) [Mass fraction] 98 % Lacie Porter INDUSTRIAL REHABILITATION CONSULTANT [employer], [employer].; [employer]. 11-04-2014 12:27-0400 Systolic blood pressure 128 mm[Hg] Lacie Porter LPN [employer], [employer].; [employer]. 06-04-2014 10:41-0400 Body height 170.18 cm Marilyn Marlojanette KOHLI [facility], Inc.; [facility], [facility]. 06-04-2014 10:41-0400 Body mass index (BMI) [Ratio] 35.55 kg/m2 Marilyn Meyer INDUSTRIAL REHABILITATION CONSULTANT [facility], Inc.; [facility], Inc. 06-04-2014 10:41-0400 Body surface area Derived from formula 2.13 m2 Marilyn Meyer LPN [facility], Inc.; [facility] [facility], [facility]. 06-04-2014 10:41-0400 Body weight 102.97 kg Marilyn Meyer [facility] [employer] [facility], Inc.; [facility] [employer] [facility], [facility]. 06-04-2014 10:41-0400 Diastolic blood pressure 90 mm[Hg] Marilyn Meyer [facility], Inc.; [employer] [facility], Inc. 06-04-2014 10:41-0400 Heart rate 66 /min Marilyn Meyer [facility], Inc.; [facility] [employer] [facility], [facility]. 06-04-2014 10:41-0400 Inhaled oxygen concentration 20 % Marilyn Marlojanette [facility], [facility].; [facility] [employer] [facility], [facility]. 06-04-2014 10:41-0400 SaO2% (BldA) [Mass fraction] 98 % Marilyn Marlojanette [facility], Inc.; [facility] [employer] [facility], [employer]. 06-04-2014 10:41-0400 Systolic blood pressure 125 mm[Hg] Marilyn Meyer LPN [facility], Inc.; [employer], [facility]. 05-14-2014 11:52-0400 Body height 175.26 cm Yakelin Fuentes INDUSTRIAL REHABILITATION CONSULTANT [facility], Inc.; [employer], [facility]. 05-14-2014 11:52-0400 Body mass index (BMI) [Ratio] 33.08 kg/m2 Yakelin Fuentes LPN [facility], Inc.; [employer], [employer] 05-14-2014 11:52-0400 Body surface area Derived from formula 2.17 m2 Yakelin Fuentes LPN [employer] [facility].; [facility]. 05-14-2014 11:52-0400 Body temperature 97.9 [degF] Yakelin Fuentes LPN [employer].; [employer] Inc. 05-14-2014 11:52-0400 Body weight 101.61 kg Yakelin Fuentes LPN [employer] Inc.; [employer] Inc. 05-14-2014 11:52-0400 Diastolic blood pressure 81 mm[Hg] Yakelin Fuentes LPN [employer].; [employer]. 05-14-2014 11:52-0400 Heart rate 67 /min Yakelin Fuentes LPN [employer] Inc.; [employer] Inc. 05-14-2014 11:52-0400 Systolic blood pressure 122 mm[Hg] Yakelin Fuentes LPN [employer].; [employer]. 05-02-2014 09:34-0400 Body height 175.26 cm Tanya Fan Rico PA-C Work Phone: [employer].; [employer]. 05-02-2014 09:34-0400 Body mass index (BMI) [Ratio] 33.37 kg/m2 Tanya Fan Ponder PA-C Work Phone: [employer].; [employer]. 05-02-2014 09:34-0400 Body surface area Derived from formula 2.18 m2 Tanya Fan Ponder PA-C Work Phone: [employer].; [employer]. 05-02-2014 09:34-0400 Body temperature 98 [degF] Tanya Fan Ponder PA-C Work Phone: [employer].; [employer] Inc. 05-02-2014 09:34-0400 Body weight 102.51 kg Tanya Fan Ponder PA-C Work Phone: [employer].; [employer]. 05-02-2014 09:34-0400 Diastolic blood pressure 80 mm[Hg] Tanya Chavira Rico PA-C Work Phone: [facility].; [employer] 05-02-2014 09:34-0400 Heart rate 65 /min Tanya Chavira Rico PA-C Work Phone: [facility].; [employer] Inc. 05-02-2014 09:34-0400 Systolic blood pressure 144 mm[Hg] Tanya Rico PA-C Work Phone: [facility].; [employer] Inc. 03-26-2014 15:19-0500 Body height 175.26 cm Yakelin Fuentes LPN [employer], [employer] 03-26-2014 15:19-0500 Body mass index (BMI) [Ratio] 33.37 kg/m2 Yakelin Fuentes LPN [employer], [employer] 03-26-2014 15:19-0500 Body surface area Derived from formula 2.18 m2 Yakelin Fuentes LPN [employer], [employer]. 03-26-2014 15:19-0500 Body weight 102.51 kg Yakelin Fuentes LPN [employer], [employer] 03-26-2014 15:19-0500 Diastolic blood pressure 69 mm[Hg] Yakelin Fuentes LPN [employer], [employer] 03-26-2014 15:19-0500 Heart rate 63 /min Yakelin Fuentes LPN [employer], [employer]. 03-26-2014 15:19-0500 Systolic blood pressure 136 mm[Hg] Yakelin Fuentes LPN [employer], [employer] 03-15-2014 08:09-0500 Body height 175.26 cm Yakelin Fuentes LPN [employer], [employer] 03-15-2014 08:09-0500 Body mass index (BMI) [Ratio] 33.52 kg/m2 Yakelin Fuentes LPN [employer] [facility], [facility].; [employer]. 03-15-2014 08:09-0500 Body surface area Derived from formula 2.18 m2 Yakelin Fuentes INDUSTRIAL REHABILITATION CONSULTANT [employer] [facility], [facility].; [facility] Inc. 03-15-2014 08:09-0500 Body weight 102.97 kg [facility]elin [facility].; [employer]. 03-15-2014 08:09-0500 Diastolic blood pressure 81 mm[Hg] [facility]elin [facility]entes [facility].; [employer]. 03-15-2014 08:09-0500 Heart rate 59 /min Yakelin Fuentes [facility].; [employer]. 03-15-2014 08:09-0500 Systolic blood pressure 129 mm[Hg] Yakelin Fuentes [facility].; [employer]. 02-22-2014 14:24-0500 Body height 175.26 cm Hailee Reis MD Work Phone: [facility].; [employer] 02-22-2014 14:24-0500 Body mass index (BMI) [Ratio] 33.37 kg/m2 Hailee Reis MD Work Phone: [facility].; [employer]. 02-22-2014 14:24-0500 Body surface area Derived from formula 2.18 m2 Hailee Reis MD Work Phone: [facility].; [employer]. 02-22-2014 14:24-0500 Body temperature 98 [degF] Hailee Reis MD Work Phone: [facility].; [employer], [employer] 02-22-2014 14:24-0500 Body weight 102.51 kg Hailee Reis MD Work Phone: [facility].; [facility] Inc. 02-22-2014 14:24-0500 Diastolic blood pressure 82 mm[Hg] Hailee Reis MD Work Phone: [facility] [employer] [facility], Inc.; [employer] 02-22-2014 14:24-0500 Heart rate 64 /min Hailee Reis MD Work Phone: [facility] [employer] [facility], Inc.; [employer] 02-22-2014 14:24-0500 Systolic blood pressure 144 mm[Hg] Hailee Reis MD Work Phone: [employer], [employer].; [employer] 02-18-2014 15:59-0500 Body weight 104.33 kg Lacie Porter INDUSTRIAL REHABILITATION CONSULTANT [facility], Inc.; [employer], [employer] 02-18-2014 15:59-0500 Diastolic blood pressure 80 mm[Hg] Lacie Porter LPN [facility], Inc.; [employer] 02-18-2014 15:59-0500 Heart rate 67 /min Lacie Porter LPN [facility], Inc.; [employer] 02-18-2014 15:59-0500 Systolic blood pressure 143 mm[Hg] Lacie Porter LPN [facility], Inc.; [employer], [employer] 12-17-2013 15:11-0500 Body weight 101.21 kg Lacie Porter INDUSTRIAL REHABILITATION CONSULTANT [facility] [employer] [facility], Inc.; [employer] 12-17-2013 15:11-0500 Diastolic blood pressure 66 mm[Hg] Lacie Porter LPN [facility], Inc.; [employer] 12-17-2013 15:11-0500 Heart rate 60 /min Lacie Porter LPN [facility] [employer] [facility], Inc.; [employer] 12-17-2013 15:11-0500 Systolic blood pressure 122 mm[Hg] Lacie Porter LPN [facility] [employer] [facility], Inc.; [employer], [employer] 06-28-2013 15:29-0400 Body height 175.26 cm Marilyn Meyer LPN [facility], [facility].; [employer], [employer] 06-28-2013 15:29-0400 Body mass index (BMI) [Ratio] 35.18 kg/m2 Marilyn Mitch KOHLI [employer] [facility], Inc.; [employer], [employer] 06-28-2013 15:29-0400 Body surface area Derived from formula 2.23 m2 Marilyn Meyer LPN [employer], Inc.; [employer], [employer] 06-28-2013 15:29-0400 Body weight 108.07 kg Marilyn Mitch KOHLI [employer] [facility], Inc.; [employer], [employer] 06-28-2013 15:29-0400 Diastolic blood pressure 69 mm[Hg] [facility]ilyn [facility], Inc.; [employer], [employer] 06-28-2013 15:29-0400 Heart rate 61 /min Marilyn Mitch KOHLI [facility] [employer] [facility], Inc.; [employer], [employer]. 06-28-2013 15:29-0400 Systolic blood pressure 129 mm[Hg] Marilyn Meyer LPN [employer], [employer] 02-28-2013 15:20-0500 Body height 175.26 cm Mary Mclean INDUSTRIAL REHABILITATION CONSULTANT [employer], [employer]. 02-28-2013 15:20-0500 Body mass index (BMI) [Ratio] 33.96 kg/m2 Mary Mclean INDUSTRIAL REHABILITATION CONSULTANT [employer], [employer]. 02-28-2013 15:20-0500 Body surface area Derived from formula 2.19 m2 Mary Mclean INDUSTRIAL REHABILITATION CONSULTANT [employer], [employer]. 02-28-2013 15:20-0500 Body weight 104.33 kg Mary Mclean LPN [employer], [employer]. 02-28-2013 15:20-0500 Diastolic blood pressure 75 mm[Hg] Mary Mclean LPN [employer], [employer] 02-28-2013 15:20-0500 Heart rate 58 /min Mary Mclean LPN [employer].; [employer]. 02-28-2013 15:20-0500 Systolic blood pressure 134 mm[Hg] Mary Mclean LPN [facility] [employer] [facility]. 02-01-2013 09:44-0500 Body height 175.26 cm Tanya Chavira Rico PA-C Work Phone: [facility].; [facility]. 02-01-2013 09:44-0500 Body mass index (BMI) [Ratio] 34.02 kg/m2 Tanya Fan Rico PA-C Work Phone: [facility].; [facility]. 02-01-2013 09:44-0500 Body surface area Derived from formula 2.19 m2 Tanya J Rico PA-C Work Phone: [facility].; [facility]. 02-01-2013 09:44-0500 Body weight 104.5 kg Tanya Fan Rico PA-C Work Phone: [facility].; [employer]. 02-01-2013 09:44-0500 Diastolic blood pressure 88 mm[Hg] Tanya Fan Rico PA-C Work Phone: [facility].; [employer]. 02-01-2013 09:44-0500 Heart rate 65 /min Tanya Fan Rico PA-C Work Phone: [facility].; [employer]. 02-01-2013 09:44-0500 Systolic blood pressure 134 mm[Hg] Tanya Fan Rico PA-C Work Phone: [employer].; [employer]. 12-06-2012 10:21-0400 Body height 175.26 cm Tanya J Rico PA-C Work Phone: [employer].; [employer]. 12-06-2012 10:21-0400 Body mass index (BMI) [Ratio] 34.11 kg/m2 Tanya J Rico PA-C Work Phone: [employer].; [employer]. 12-06-2012 10:21-0400 Body surface area Derived from formula 2.2 m2 Tanya Chavira Rico PA-C Work Phone: [employer].; [employer]. 12-06-2012 10:21-0400 Body weight 104.78 kg Tanya Ponder PA-C Work Phone: [employer].; [employer]. 12-06-2012 10:21-0400 Diastolic blood pressure 77 mm[Hg] Tanya Ponder PA-C Work Phone: [employer].; [employer]. 12-06-2012 10:21-0400 Heart rate 74 /min Tanya Ponder PA-C Work Phone: [employer].; [employer]. 12-06-2012 10:21-0400 Systolic blood pressure 141 mm[Hg] Tanya Ponder PA-C Work Phone: [employer].; [employer]. 08-11-2012 09:49-0400 Body height 175.26 cm Yakelin Fuentes LPN [employer].; [employer]. 08-11-2012 09:49-0400 Body mass index (BMI) [Ratio] 34.85 kg/m2 Yakelin Fuentes LPN [employer].; [employer]. 08-11-2012 09:49-0400 Body surface area Derived from formula 2.22 m2 Yakelin Fuentes LPN [employer].; [employer]. 08-11-2012 09:49-0400 Body weight 107.05 kg Yakelin Fuentes LPN [employer].; [employer]. 08-11-2012 09:49-0400 Diastolic blood pressure 73 mm[Hg] Yakelin Fuentes LPN [employer].; [employer] [facility], [facility]. 08-11-2012 09:49-0400 Heart rate 67 /min Yakelin Emily Fuentes INDUSTRIAL REHABILITATION CONSULTANT [facility], [facility].; [employer] [employer] [facility], [facility]. 08-11-2012 09:49-0400 Systolic blood pressure 120 mm[Hg] Yakelin Emily Fuentes INDUSTRIAL REHABILITATION CONSULTANT [facility], Inc.; [employer] [facility], [facility]. 06-09-2012 13:18-0400 Body height 175.26 cm [facility], [facility].; [employer], [facility]. 06-09-2012 13:18-0400 Body mass index (BMI) [Ratio] 34.85 kg/m2 Tiny L Richert [facility] [employer] [facility], Inc.; [employer] [facility], [facility]. 06-09-2012 13:18-0400 Body surface area Derived from formula 2.22 m2 Tiny L [facility], Inc.; [employer] [facility], [facility]. 06-09-2012 13:18-0400 Body weight 107.05 kg Tiny L Richert [facility], [facility].; [employer], [facility]. 06-09-2012 13:18-0400 Diastolic blood pressure 70 mm[Hg] Tiny L Richert [facility] [employer] [facility], Inc.; [employer] [facility], [facility]. 06-09-2012 13:18-0400 Heart rate 70 /min Tiny L Richert [facility] [employer] [facility], Inc.; [employer], [facility]. 06-09-2012 13:18-0400 Systolic blood pressure 126 mm[Hg] Tiny L Richert INDUSTRIAL REHABILITATION CONSULTANT [facility].; [employer] [facility], [facility]. 05-11-2012 13:43-0400 Body height 175.26 cm Tiny L Richert [facility] [employer] [facility], [facility].; [employer], [facility]. 05-11-2012 13:43-0400 Body mass index (BMI) [Ratio] 33.96 kg/m2 Tiny L Richert INDUSTRIAL REHABILITATION CONSULTANT [facility] [employer] [facility], Inc.; [employer] 05-11-2012 13:43-0400 Body surface area Derived from formula 2.19 m2 Tiny L Richert [facility] [employer] [facility], [facility].; [facility]. 05-11-2012 13:43-0400 Body weight 104.33 kg Tinykylee Briggslaura [facility], [facility].; [employer] 05-11-2012 13:43-0400 Diastolic blood pressure 86 mm[Hg] Tiny L Elena [facility], Inc.; [employer], [employer] 05-11-2012 13:43-0400 Heart rate 69 /min Tiny L Elena [facility], Inc.; [employer], [employer] 05-11-2012 13:43-0400 Systolic blood pressure 144 mm[Hg] Tinykylee Briggslaura [facility], Inc.; [employer], [facility]. 05-08-2012 09:56-0400 Diastolic blood pressure 80 mm[Hg] Dee Dee Noble [facility], Inc.; [employer]. 05-08-2012 09:56-0400 Heart rate 64 /min Dee Dee Noble [facility], Inc.; [employer]. 05-08-2012 09:56-0400 Systolic blood pressure 159 mm[Hg] Dee Dee Noble [facility], Inc.; [facility]. 11-11-2010 15:35-0400 Body height 170.18 cm Wendi Menon [facility].; [employer], [facility]. 11-11-2010 15:35-0400 Body mass index (BMI) [Ratio] 34.8 kg/m2 Wendi Menon [facility].; [facility]. 11-11-2010 15:35-0400 Body surface area Derived from formula 2.11 m2 Wendirhianna Menon [facility].; [employer]. 11-11-2010 15:35-0400 Body weight 100.79 kg Wendi Menon [facility].; [employer], [employer]. 11-11-2010 15:35-0400 Diastolic blood pressure 76 mm[Hg] Wendi Menon [facility].; [facility]. 11-11-2010 15:35-0400 Heart rate 79 /min Wendi Menon [facility], [facility].; [facility] [employer] [facility] [facility]. 11-11-2010 15:35-0400 Systolic blood pressure 143 mm[Hg] Wendi Menon [facility], [facility].; [employer] [facility]. 05-11-2010 15:22-0400 Body height 170.18 cm Dee Dee Noble [facility], [facility].; [employer] [facility]. 05-11-2010 15:22-0400 Body mass index (BMI) [Ratio] 36.49 kg/m2 Gisela Aide [facility] [employer] [facility].; [employer] [employer] [facility]. 05-11-2010 15:22-0400 Body surface area Derived from formula 2.16 m2 Gisela Aide [facility] [employer] [facility].; [facility]. 05-11-2010 15:22-0400 Body temperature 98 [degF] Gisela Aide [facility] [employer] [facility].; [employer] [facility]. 05-11-2010 15:22-0400 Body weight 105.69 kg Gisela Aide [facility] [employer] [facility].; [facility]. 05-11-2010 15:22-0400 Inhaled oxygen concentration 20 % [facility] [employer] [facility].; [facility]. 05-11-2010 15:22-0400 SaO2% (BldA) [Mass fraction] 97 % [facility] Aide [facility] [employer] [facility].; [employer] [facility]. 01-05-2010 15:32-0500 Body height 170.18 cm Wendi Menon [facility] [employer] [facility].; [facility]. 01-05-2010 15:32-0500 Body mass index (BMI) [Ratio] 35.8 kg/m2 Wendi Menon [facility] [employer] [facility].; [facility]. 01-05-2010 15:32-0500 Body surface area Derived from formula 2.14 m2 Wendi Carrie DomingoWin[place] INDUSTRIAL REHABILITATION CONSULTANT [facility].; [employer]. 01-05-2010 15:32-0500 Body weight 103.69 kg Wendi Menon LPN [facility].; [facility] [employer] 01-05-2010 15:32-0500 Diastolic blood pressure 86 mm[Hg] Wendi Menon LPN [employer], [employer].; [employer], [employer] 01-05-2010 15:32-0500 Heart rate 66 /min Wendi Menon LPN [facility].; [facility] [employer] 01-05-2010 15:32-0500 Systolic blood pressure 132 mm[Hg] Wendirhianna Menon LPN [facility].; [employer]. Encounters Encounter Date Encounter Type Care Provider Facility Start: 04-01-2023 End: 04-01-2023 Office outpatient visit 15 minutes Barrie Hylton PA-C Work Phone: [facility]. Start: 03-21-2023 Barrie HEAD-C Work Phone: [employer]. Start: 02-25-2023 ambulatory ANTONINO PAC [facility] Start: 02-22-2023 ambulatory ANTONINO PAC [facility] Start: 02-09-2023 End: 02-09-2023 ambulatory ANTONINO PAC [facility] Start: 01-26-2023 End: 01-27-2023 Barrie HEAD-C Work Phone: [employer]. Start: 01-03-2023 End: 01-03-2023 Barrie Hylton PA-C Work Phone: [employer]. Start: 12-10-2022 End: 12-10-2022 Patient encounter status Barrie Hylton PA-C Work Phone: [employer].; [employer]. Start: 12-10-2022 End: 12-10-2022 Periodic preventive med est patient 65yrs& older Barrie HEAD-C Work Phone: [employer]. Start: 12-02-2022 End: 12-02-2022 Luke Reny PA-C Work Phone: [employer]. Start: 06-10-2022 End: 06-11-2022 Office outpatient visit 25 minutes Luke Reny PA-C Work Phone: [employer]. Start: 05-28-2022 End: 05-28-2022 Luke Reny PA-C Work Phone: [employer]. Start: 05-06-2022 End: 05-07-2022 Luke Reny PA-C Work Phone: [employer] Start: 03-22-2022 End: 03-22-2022 Luke Reny PA-C Work Phone: [employer]. Start: 02-04-2022 End: 02-04-2022 Luke Reny PA-C Work Phone: [employer]. Start: 12-23-2021 End: 12-23-2021 Luke Reny PA-C Work Phone: [employer] Start: 12-01-2021 End: 12-01-2021 Patient encounter status Luke Reny PA-C Work Phone: [employer].; [employer]. Start: 12-01-2021 End: 12-01-2021 PPPS, subseq visit Luke Reny PA-C Work Phone: [employer] Start: 10-26-2021 End: 10-26-2021 Luke Reny PA-C Work Phone: [employer] Start: 10-20-2021 End: 10-20-2021 Luke Reny PA-C Work Phone: [employer]. Start: 10-15-2021 End: 10-16-2021 ambulatory ALBERTO HOLLY MD Facility:A Start: 10-06-2021 End: 10-07-2021 ambulatory ALBERTO HOLLY MD Facility:A Start: 10-06-2021 End: 10-06-[address] ALBERTO HOLLY MD [facility] Start: 10-01-2021 End: 10-02-2021 ambulatory ALBERTO HOLLY MD Facility:A Start: 10-01-2021 End: 10-01-[address] ALBERTO HOLLY MD [facility] Start: 09-21-2021 End: 09-21-2021 Office outpatient visit 25 minutes Luke Reny PA-C Work Phone: [employer]. Start: 09-10-2021 End: 09-11-2021 ambulatory ALBERTO HOLLY MD Facility:A Start: 07-29-2021 End: 07-29-2021 Luke Reny PA-C Work Phone: [employer]. Start: 06-17-2021 End: 06-17-2021 Luke Reny PA-C Work Phone: [employer]. Start: 05-25-2021 End: 05-25-2021 Luke Reny PA-C Work Phone: [employer]. Start: 05-25-2021 End: 05-25-2021 Luke Reny PA-C Work Phone: [employer]. Start: 03-27-2021 End: 03-27-2021 Luke Reny PA-C Work Phone: [employer]. Start: 03-26-2021 End: 03-26-2021 Luke Reny PA-C Work Phone: [employer]. Start: 01-20-2021 End: 01-20-2021 Office outpatient visit 15 minutes Luke Reny PA-C Work Phone: [employer]. Start: 12-22-2020 End: 12-22-2020 Luke Reny PA-C Work Phone: [employer]. Start: 12-05-2020 End: 12-05-2020 Office outpatient visit 15 minutes Luke Reny PA-C Work Phone: [employer]. Start: 12-01-2020 End: 12-01-2020 Luke Reny PA-C Work Phone: [employer]. Start: 11-26-2020 End: 11-26-2020 Luke Reny PA-C Work Phone: [employer]. Start: 10-24-2020 End: 10-24-2020 Luke Reny PA-C Work Phone: [employer]. Start: 10-06-2020 End: 10-06-2020 Luke Reny PA-C Work Phone: [employer]. Start: 10-06-2020 End: 10-06-2020 Patient encounter status Luke Reny PA-C Work Phone: [employer].; [employer]. Start: 10-06-2020 End: 10-06-2020 PPPS, subseq visit Luke Reny PA-C Work Phone: [employer]. Start: 09-29-2020 End: 09-29-2020 Luke Reny PA-C Work Phone: [employer]. Start: 09-09-2020 End: 09-09-2020 Luke Reny PA-C Work Phone: [facility]. Start: 07-08-2020 End: 07-08-2020 Luke Reny PA-C Work Phone: [facility]. Start: 06-17-2020 End: 06-17-2020 Luke Reny PA-C Work Phone: [facility]. Start: 03-31-2020 End: 03-31-2020 Luke Reny PA-C Work Phone: [employer]. Start: 03-11-2020 End: 03-11-2020 Office outpatient visit 15 minutes Luke Reny PA-C Work Phone: [employer]. Start: 03-03-2020 End: 03-03-2020 Office outpatient visit 15 minutes Luke Reny PA-C Work Phone: [employer]. Start: 02-20-2020 End: 02-21-2020 Luke Reny PA-C Work Phone: [employer] Start: 01-02-2020 End: 01-03-2020 Luke Reny PA-C Work Phone: [employer]. Start: 01-01-2020 End: 01-01-2020 Office outpatient visit 15 minutes Luke Erny PA-C Work Phone: [employer]. Start: 12-07-2019 End: 12-07-2019 Office outpatient visit 15 minutes Luke Reny PA-C Work Phone: [employer]. Start: 12-04-2019 End: 12-04-2019 Luke Reny PA-C Work Phone: [employer]. Start: 09-18-2019 End: 09-18-2019 Patient encounter status Luke Reny PA-C Work Phone: [employer]. Start: 09-18-2019 End: 09-18-2019 Periodic preventive med est patient 65yrs& older Luke Reny PA-C Work Phone: [employer]. Start: 09-17-2019 End: 09-17-2019 Luke Reny PA-C Work Phone: [employer]. Start: 05-08-2019 End: 05-11-2019 Luke Reny PA-C Work Phone: [employer]. Start: 03-06-2019 End: 03-06-2019 Luke Reny PA-C Work Phone: [employer]. Start: 02-23-2019 End: 02-23-2019 Office outpatient visit 15 minutes Luke Reny PA-C Work Phone: [employer]. Start: 10-27-2018 End: 10-27-2018 Office outpatient visit 25 minutes Luke Reny PA-C Work Phone: [employer]. Start: 10-27-2018 End: 10-27-2018 Luke Reny PA-C Work Phone: [employer]. Start: 10-26-2018 End: 10-27-2018 Luke Reny PA-C Work Phone: [employer]. Start: 08-14-2018 End: 08-14-2018 Luke Reny PA-C Work Phone: [employer]. Start: 07-26-2018 End: 07-26-2018 Luke Reny PA-C Work Phone: [employer]. Start: 07-21-2018 End: 07-21-2018 Luke Reny PA-C Work Phone: [employer]. Start: 06-26-2018 End: 06-26-2018 Patient encounter status Luke Reny PA-C Work Phone: [employer].; [employer]. Start: 06-26-2018 End: 06-26-2018 Periodic preventive med est patient 65yrs& older Luke Reny PA-C Work Phone: [employer]. Start: 06-26-2018 End: 06-28-2018 Luke Reny PA-C Work Phone: [employer]. Start: 2018 End: 2018 Office outpatient visit 15 minutes Luke Reny PA-C Work Phone: [employer]. Start: 03-10-2018 End: 03-10-2018 Office outpatient visit 15 minutes Luke Reny PA-C Work Phone: [employer]. Start: 12-29-2017 End: 12-29-2017 Office outpatient visit 25 minutes Luke Reny PA-C Work Phone: [employer]. Start: 12-19-2017 End: 12-19-2017 Luke Reny PA-C Work Phone: [employer]. Start: 12-12-2017 End: 12-14-2017 Luke Reny PA-C Work Phone: [employer]. Start: 12-02-2017 End: 12-02-2017 Luke Reny PA-C Work Phone: [employer]. Start: 07-15-2017 End: 07-15-2017 Office outpatient visit 15 minutes Luke Reny PA-C Work Phone: [employer] Start: 06-28-2017 End: 06-28-2017 Office outpatient visit 25 minutes Luke Reny PA-C Work Phone: [employer]. Start: 05-05-2017 End: 05-05-2017 Office outpatient visit 15 minutes Luke Reny PA-C Work Phone: [employer]. Start: 01-05-2017 End: 01-05-2017 Luke Reny PA-C Work Phone: [employer]. Start: 12-28-2016 End: 12-28-2016 Office outpatient visit 15 minutes Luke Reny PA-C Work Phone: [employer]. Start: 12-20-2016 End: 12-20-2016 Luke Reny PA-C Work Phone: [employer]. Start: 12-09-2016 End: 12-09-2016 Luke Reny PA-C Work Phone: [employer]. Start: 11-02-2016 End: 11-02-2016 Luke Reny PA-C Work Phone: [employer]. Start: 11-01-2016 End: 11-01-2016 Office outpatient visit 15 minutes Luke Reny PA-C Work Phone: [employer]. Start: 10-28-2016 End: 10-28-2016 Office outpatient visit 15 minutes Luke Reny PA-C Work Phone: [employer]. Start: 10-19-2016 End: 10-19-2016 Luke Reny PA-C Work Phone: [employer]. Start: 10-11-2016 End: 10-11-2016 Office outpatient visit 15 minutes Luke Reny PA-C Work Phone: [employer]. Start: 10-04-2016 End: 10-04-2016 Luke Reny PA-C Work Phone: [employer]. Start: 08-31-2016 End: 08-31-2016 Luke Reny PA-C Work Phone: [employer]. Start: 08-16-2016 End: 08-16-2016 Luke Reny PA-C Work Phone: [employer]. Start: 08-02-2016 End: 08-02-2016 Luke Reny PA-C Work Phone: [employer]. Start: 07-20-2016 End: 07-20-2016 Office outpatient visit 15 minutes Luke Reny PA-C Work Phone: [employer]. Start: 04-19-2016 End: 04-19-2016 Luke Reny PA-C Work Phone: [employer]. Start: 01-26-2016 End: 01-26-2016 Luke Reny PA-C Work Phone: [employer]. Start: 01-20-2016 End: 01-20-2016 Luke Reny PA-C Work Phone: [employer]. Start: 01-05-2016 End: 01-06-2016 Luke Reny PA-C Work Phone: [employer]. Start: 10-13-2015 End: 10-13-2015 Luke Reny PA-C Work Phone: [employer]. Start: 10-06-2015 End: 10-07-2015 Luke Reny PA-C Work Phone: [employer]. Start: 07-31-2015 End: 07-31-2015 Luke Reny PA-C Work Phone: [employer]. Start: 06-27-2015 End: 06-27-2015 Luke Reny PA-C Work Phone: [employer]. Start: 06-02-2015 End: 06-02-2015 Office outpatient visit 25 minutes Luke Reny PA-C Work Phone: [employer]. Start: 05-06-2015 End: 05-06-2015 Luke Reny PA-C Work Phone: [employer]. Start: 03-03-2015 End: 03-03-2015 Luke Reny PA-C Work Phone: [employer]. Start: 02-24-2015 End: 02-24-2015 Office outpatient visit 15 minutes Luke Reny PA-C Work Phone: [employer]. Start: 01-13-2015 End: 01-15-2015 Office outpatient visit 15 minutes Luke Reny PA-C Work Phone: [employer] Start: 12-27-2014 End: 12-27-2014 Office outpatient visit 15 minutes Luke Reny PA-C Work Phone: [employer]. Start: 12-06-2014 End: 12-06-2014 Luke Reny PA-C Work Phone: [employer]. Start: 11-04-2014 End: 11-04-2014 Luke Reny PA-C Work Phone: [employer]. Start: 06-04-2014 End: 06-07-2014 Office outpatient visit 15 minutes Luke Reny PA-C Work Phone: [employer]. Start: 05-14-2014 End: 05-14-2014 Office outpatient visit 15 minutes Luke Reny PA-C Work Phone: [employer]. Start: 05-02-2014 End: 05-02-2014 Luke Reny PA-C Work Phone: [employer] Start: 03-26-2014 End: 03-26-2014 Office outpatient visit 15 minutes Luke Reny PA-C Work Phone: [employer]. Start: 03-15-2014 End: 03-15-2014 Luke Reny PA-C Work Phone: [employer]. Start: 03-15-2014 End: 03-15-2014 Office outpatient visit 15 minutes Luke Reny PA-C Work Phone: [employer]. Start: 03-14-2014 End: 03-14-2014 Luke Reny PA-C Work Phone: [employer]. Start: 03-05-2014 End: 03-05-2014 Luke Reny PA-C Work Phone: [employer]. Start: 03-04-2014 End: 03-05-2014 Luke Reny PA-C Work Phone: [employer]. Start: 02-22-2014 End: 02-22-2014 Office outpatient visit 25 minutes Luke Reny PA-C Work Phone: [employer]. Start: 02-18-2014 End: 02-19-2014 Luke Reny PA-C Work Phone: [employer]. Start: 01-30-2014 End: 01-30-2014 Luke Reny PA-C Work Phone: [employer]. Start: 01-07-2014 End: 01-07-2014 Luke Reny PA-C Work Phone: [employer]. Start: 12-17-2013 End: 12-17-2013 Luke Reny PA-C Work Phone: [employer]. Start: 12-04-2013 End: 12-04-2013 Luke Reny PA-C Work Phone: [employer]. Start: 08-23-2013 End: 08-23-2013 Luke Reny PA-C Work Phone: [employer]. Start: 06-28-2013 End: 06-28-2013 Luke Reny PA-C Work Phone: [employer]. Start: 05-14-2013 End: 05-14-2013 Luke Reny PA-C Work Phone: [employer]. Start: 04-30-2013 End: 05-01-2013 Luke Reny PA-C Work Phone: [employer]. Start: 04-18-2013 End: 04-18-2013 Luke Reny PA-C Work Phone: [employer]. Start: 04-11-2013 End: 04-11-2013 Luke Reny PA-C Work Phone: [employer]. Start: 04-06-2013 End: 04-06-2013 Luke Reny PA-C Work Phone: [employer]. Start: 04-02-2013 End: 04-02-2013 Luke Reny PA-C Work Phone: [employer]. Start: 04-02-2013 End: 04-02-2013 Luke Reny PA-C Work Phone: [employer]. Start: 03-23-2013 End: 03-23-2013 Luke Reny PA-C Work Phone: [employer]. Start: 03-14-2013 End: 03-14-2013 Luke Reny PA-C Work Phone: [employer]. Start: 02-28-2013 End: 03-06-2013 Luke Reny PA-C Work Phone: [employer]. Start: 02-15-2013 End: 02-15-2013 Luke Reny PA-C Work Phone: [employer]. Start: 02-01-2013 End: 02-01-2013 Luke Reny PA-C Work Phone: [facility]. Start: 12-29-2012 End: 12-29-2012 Luke Reny PA-C Work Phone: [facility]. Start: 12-11-2012 End: 12-11-2012 Luke Reny PA-C Work Phone: [facility]. Start: 12-08-2012 End: 12-08-2012 Luke Reny PA-C Work Phone: [facility]. Start: 12-08-2012 End: 12-08-2012 Luke Reny PA-C Work Phone: [facility]. Start: 12-06-2012 End: 12-06-2012 Luke Reny PA-C Work Phone: [facility]. Start: 09-18-2012 End: 09-18-2012 Patient encounter status Luke Reny PA-C Work Phone: [employer]. Start: 09-18-2012 End: 09-18-2012 Luke Reny PA-C Work Phone: [facility]. Start: 08-14-2012 End: 08-14-2012 Luke Reny PA-C Work Phone: [employer]. Start: 08-11-2012 End: 08-12-2012 Luke Reny PA-C Work Phone: [employer]. Start: 08-01-2012 End: 08-01-2012 Luke Reny PA-C Work Phone: [facility]. Start: 06-09-2012 End: 06-09-2012 Luke Reny PA-C Work Phone: [facility]. Start: 06-07-2012 End: 06-07-2012 Luke Reny PA-C Work Phone: [employer]. Start: 05-11-2012 End: 05-12-2012 Luke Reny PA-C Work Phone: [employer]. Start: 05-08-2012 End: 05-08-2012 Luke Reny PA-C Work Phone: [facility]. Start: 11-03-2011 End: 11-03-2011 Luke Reny PA-C Work Phone: [employer]. Start: 01-22-2011 End: 01-25-2011 Luke Reny PA-C Work Phone: [employer]. Start: 11-20-2010 End: 11-20-2010 Luke Reny PA-C Work Phone: [employer]. Start: 11-11-2010 End: 11-13-2010 Luke Reny PA-C Work Phone: [employer]. Start: 05-11-2010 End: 05-13-2010 Luke Reny PA-C Work Phone: [employer]. Start: 01-24-2010 End: 01-24-2010 Luke Reny PA-C Work Phone: [employer]. Start: 01-23-2010 End: 01-23-2010 Luke Reny PA-C Work Phone: [employer]. Start: 01-23-2010 End: 01-23-2010 Luke Reny PA-C Work Phone: [employer]. Start: 01-05-2010 End: 01-05-2010 Luke Reny PA-C Work Phone: [facility]. Patient encounter status Marilyn Meyer LPN [facility]; [facility] Patient encounter status Coral Tong MA [facility]; [facility] Patient encounter status Katie Felipe RN [facility]; [facility] Patient encounter status Barrie Hylton PA-C Work Phone: [facility]; [facility] Patient encounter status Coral Tong MA [facility]; [facility] Procedures Date Procedure Procedure Detail Performing Clinician Start: 12-10-2022 End: 12-10-2022 Adv care pln tlkd & alt dcsn maker docd Barrie Hylton PA-C Work Phone: Start: 12-10-2022 End: 12-10-2022 Depression screening Barrie Hylton PA-C Work Phone: Start: 12-10-2022 End: 12-10-2022 Falls risk assessment documented Barrie Hylton PA-C Work Phone: Start: 12-10-2022 End: 12-10-2022 PPPS, subseq visit Barrie Hylton P A-C Work Phone: Start: 12-10-2022 End: 12-10-2022 Pt falls assess docd w/o fall/injury past year Barrie Hylton PA-C Work Phone: Start: 12-10-2022 End: 12-10-2022 Scr dep neg, no plan reqd Barrie vicenter PA-C Work Phone: Start: 12-03-2022 End: 12-03-2022 Lab findings surveillance Coral osuna MA Start: 12-03-2022 End: 12-03-2022 Lipid panel results documented & reviewed Coral Tong MA Start: 12-01-2021 End: 12-01-2021 Adv care pln/ no alt dcsn mkr docd or refusal Antonino J Clark PA-C Work Phone: Start: 12-01-2021 End: 12-01-2021 Depression screening Antonino Fan Clark PA-C Work Phone: Start: 12-01-2021 End: 12-01-2021 Falls risk assessment documented Antonino J Clark PA-C Work Phone: Start: 12-01-2021 End: 12-01-2021 PPPS, subseq visit Antonino J Clark PA-C Work Phone: Start: 12-01-2021 End: 12-01-2021 Pt falls assess docd w/o fall/injury past year Antonino Fan Clark PA-C Work Phone: Start: 12-01-2021 End: 12-01-2021 Scr dep neg, no plan reqd Antonino Fan Clark PA-C Work Phone: Start: 11-23-2021 End: 11-23-2021 Screening mammography Coral Tong MA Start: 10-20-2021 End: 11-23-2021 Screening mammography bi 2-view breast inc cad Antonino Chavira Clark PA-C Work Phone: Start: 03-24-2021 End: 03-24-2021 Screening colonoscopy Coral Tong MA Start: 10-06-2020 End: 10-06-2020 Depression screening Antonino Clark PA-C Work Phone: Start: 10-06-2020 End: 10-06-2020 Falls risk assessment documented Antonino J Clark PA-C Work Phone: Start: 10-06-2020 End: 10-06-2020 PPPS, subseq visit Antonino Fan Clark PA-C Work Phone: Start: 10-06-2020 End: 10-06-2020 Pt falls assess docd 2/> falls/fall w/injury/yr Antonino Chavira Clark PA-C Work Phone: Start: 10-06-2020 End: 10-06-2020 Scr dep neg, no plan reqd Antonino TELLOC Work Phone: Start: 10-06-2020 End: 10-21-2020 Screening mammography bi 2-view breast inc cad Antonino HEAD-C Work Phone: Start: 07-08-2020 End: 07-08-2020 Dischrg meds reconciled w/current med list Hailee Reis MD Work Phone: Start: 06-13-2020 Hiatal hernia (disorder) DR ALBERTO HOLLY MD Plan of Treatment Date Care Activity Detail Author Start: 12-10-2022 Screening digital br [facility] Immunizations Immunization Date Immunization Notes Care Provider Fa miguel 06-08-2022 tetanus toxoid, redu rita diphtheria toxoid, and acellular pertussis vaccine, adsorbed Luke Reny PA-C Work Phone: [facility]; [facility] 10-27-2021 influenza, injectabl e, quadrivalent, contains preservative Luke Reny PA-C Work Phone: [employer]; [facility]. 01-28-2021 Luke Hochstetle r PA-C Work Phone: [facility].; [facility]. 10-25-2019 influenza, high dose seasonal, preservative-free Luke Reny PA-C Work Phone: [employer]; [facility]. 12-29-2017 influenza, injectabl e, quadrivalent, contains preservative Luke Reny PA-C Work Phone: [facility].; [facility]. 12-29-2017 pneumococcal polysaccharide vaccine, 23 valent Luke Reny PA-C Work Phone: [employer]; [facility]. 09-29-2017 zoster vaccine recombinant Luke Reny PA-C Work Phone: [facility] 07-30-2017 zoster vaccine recombinant Luke Reny PA-C Work Phone: [facility]. 06-28-2017 varicella-zoster gE vac,2 of 2 Luke Reny PA-C Work Phone: [facility]. 12-28-2016 pneumococcal conjuga te vaccine, 13 valent Luke Reny PA-C Work Phone: [facility] 04-30-2013 tetanus toxoid, redu rita diphtheria toxoid, and acellular pertussis vaccine, adsorbed Luke Reny PA-C Work Phone: [facility] 09-18-2012 zoster vaccine, live Luke Vince conleytler PA-C Work Phone: [facility]. Payers Date Payer Category Payer Private Health Insurance 101 [id number] 1950 Unknown [id number] 1950 Unknown [id number] [id number] [id number] 1950 Unknown [id number] 2.16.8 [id number] 1948 Unknown [id number] [id number] [id number] 1948 Unknown [id number] 2.16.8 [id number] 1950 Unknown [id number] 2.16.8 [id number] 1950 Unknown [id number] 2.16.8 [id number] Social History Date Type Detail Facility Start: 03-06-2020 Tobacco smoking status Never s moked tobacco (finding) [facility] Sex Assigned At Female [facility] Never smoker. [facility].; [facility] Clinical Note 10-06-2021 Note Date & Type Note Facility 10-06-2021 Note ORIGINAL EXAMINATION: DOUBLE CONTRAST UPPER GI SERIES10/06/2021 11:11 am TECHNIQUE: Multiple spot fluoroscopic images of the distal esophagus, stomach, and C-loop of the duodenum were obtained following the administration of effervescent crystals and thick liquid barium. The patient was placed in JOLLY and additional thin liquid barium was administered to evaluate for hiatal hernia. The patient was then placed in supine position to elicit reflux. The examination was performed by resident physician Dr. Barth. The attending physician, Dr. Becerra was immediately available for consultation. Fluoroscopy time: 2.5 min Images: 44 images Total dose: 98.6 mGy - Air Kerma COMPARISON: None. HISTORY: ORDERING SYSTEM PROVIDED HISTORY: Reason for Exam: evaluate anatomy post fundoplication FINDINGS: The distal esophagus is normal in course, caliber, and mucosal pattern. No esophageal diverticula, strictures, esophageal dysmotility, or filling defects are identified. Transit across the GE junction is normal. A normal gastric mucosal pattern is observed without evidence of ulceration or filling defects. Small sliding hiatal hernia with mucosal ring. No evidence of reflux. A normal mucosal pattern and peristalsis is observed across the bulb of the duodenum. A small duodenal diverticulum is noted in the 2nd/3rd portion. No ulcerations noted. IMPRESSION: Small sliding hiatal hernia with mucosal ring. No evidence of reflux. Small duodenal diverticulum. I have personally reviewed the images of this examination and agree with the resident's findings and interpretation. Interpreted by: Radha Becerra MD Preliminary Report By: Moises Barth Electronically signed By Radha Becerra MD Dictated Date: 10/06/2021 4:01:21 PM Prelim Date: 10/06/2021 4:52:19 PM Sign Date: 10/06/2021 4:52:19 PM Ordering Provider: [facility] Clinical Note 10-06-2021 Note Date & Type Note Facility 10-06-2021 Note ORIGINAL EXAMINATION: DOUBLE CONTRAST UPPER GI SERIES10/06/2021 11:11 am TECHNIQUE: Multiple spot fluoroscopic images of the distal esophagus, stomach, and C-loop of the duodenum were obtained following the administration of effervescent crystals and thick liquid barium. The patient was placed in JOLLY and additional thin liquid barium was administered to evaluate for hiatal hernia. The patient was then placed in supine position to elicit reflux. The examination was performed by resident physician Dr. Barth. The attending physician, Dr. Becerra was immediately available for consultation. Fluoroscopy time: 2.5 min Images: 44 images Total dose: 98.6 mGy - Air Kerma COMPARISON: None. HISTORY: ORDERING SYSTEM PROVIDED HISTORY: Reason for Exam: evaluate anatomy post fundoplication FINDINGS: The distal esophagus is normal in course, caliber, and mucosal pattern. No esophageal diverticula, strictures, esophageal dysmotility, or filling defects are identified. Transit across the GE junction is normal. A normal gastric mucosal pattern is observed without evidence of ulceration or filling defects. Small sliding hiatal hernia with mucosal ring. No evidence of reflux. A normal mucosal pattern and peristalsis is observed across the bulb of the duodenum. A small duodenal diverticulum is noted in the 2nd/3rd portion. No ulcerations noted. IMPRESSION: Small sliding hiatal hernia with mucosal ring. No evidence of reflux. Small duodenal diverticulum. I have personally reviewed the images of this examination and agree with the resident's findings and interpretation. Interpreted by: Radha Becerra MD Preliminary Report By: Moises Barth Electronically signed By Radha Becerra MD Dictated Date: 10/06/2021 4:01:21 PM Prelim Date: 10/06/2021 4:52:19 PM Sign Date: 10/06/2021 4:52:19 PM Ordering Provider: [facility] Progress note 05-15-2020 Note Date & Type Note Facility 05-15-2020 Note HNO ID: [id number] Author: Vu Salas LPN Service: ? Author Type: LICENSED NURSE Type: Progress Notes Filed: 05/15/2020 9:12 AM Note Text: Name: Shari Bates [facility]#: [id number] Date: 05/15/2020 AGGARWAL 48 HR PH FOLLOW-UP The AGGARWAL monitor was returned today.. Test data from the grain receiver was downloaded. Events from the patient diary were inserted into the study for physician review. .Vu Salas LPN [facility] Progress note 05-08-2020 Note Date & Type Note Facility 05-08-2020 Note HNO ID: [id number] Author: Vu Salas LPN Service: ? Author Type: LICENSED NURSE Type: Progress Notes Filed: 05/08/2020 2:02 PM Note Text: Name: Shari Bates [facility]#: [id number] Date: 05/08/2020 48hr AGGARWAL PH CAPSULE PLACEMENT Indications: Hiatal Hernia Testing off meds - , Prilosec (omperazole) 20 mg , once daily The SCJ was visualized and verified during endoscopy. A AGGARWAL pH capsule was attached to the esophagus per protocol by Lilly Ronquillo MD. Attachement was confirmed by a 2nd endoscopic view. The patient was taken to the recovery area to be monitored until awake. See sedation record. Patient Education: Instructions regarding the AGGARWAL pH monitor were reviewed with the patient prior to their endoscopy. The patient was verbally instructed to record events and symptoms on the dairy provided. Written instructions are included with the patient diary along with emergency telephone numbers. The patient was instructed not to undergo any MRI studies within 30 days of the procedure to allow the capsule to detach and pass through the body. Patient will return aggarwal reciever and patient diary in 48 hours. .Vu Salas LPN [facility] Progress note 05-08-2020 Note Date & Type Note Facility 05-08-2020 Note HNO ID: [id number] Author: Vu Salas LPN Service: ? Author Type: LICENSED NURSE Type: Progress Notes Filed: 05/08/2020 11:34 AM Note Text: Name: Shari Bates [facility]#: [id number] Date: 05/08/2020 ESOPHAGEAL MANOMETRY TEST Indication: Hiatal Hernia Pain Assessment: No pain is present. The patient has been NPO since last evening. A local anesthetic 1.5 cc 2% Viscous Lidocaine was instilled into the left nares. The patient was intubated the left nares using a 36 sensor high resolution circumferential solid state manometry catheter The esophageal manometry test was completed. The patient tolerated the test without difficulty. .Vu Salas LPN [facility] Evaluation + Plan note Radiology Note Date & Type Note Facility Evaluation + Plan note Future Appointments Appointment Date:10/06/2021 10:00:00 AM Scheduled Provider: Location:XRAY Appointment Type:XR Upper GI Appointment Date:10/12/2021 10:00:00 AM Scheduled Provider:ALBERTO HOLLY JR, MD Location:Gen Surg [facility] Appointment Type:GS OV Check after Test Future Scheduled TestsXR Upper GI 10/06/21 [facility] Evaluation + Plan note Note Date & Type Note Facility Evaluation + Plan note Future Appointments Appointment Date:10/15/2021 01:15:00 PM Scheduled Provider:ALBERTO HOLLY JR, MD Location:Gen Surg [facility] Appointment Type:GS OV Check after Test [facility] Hospital course Narrative Note Date & Type Note Facility Hospital course Narrative No data available for this section [facility] Hospital Discharge instructions Note Date & Type Note Facility Hospital Discharge instructions No data available for this section [facility] Progress note Note Date & Type Note Facility Progress note No data available for this section [facility] Summary Purpose Family History Cancer Status:Active Comments:Father. Hypertension Status:Active Comments:Mother. Cancer Status:Active Comments:Father. Hypertension Status:Active Comments:Mother. Cancer Status:Active Comments:Father. Hypertension Status:Active Comments:Mother. Cancer Status:Active Comments:Father. Hypertension Status:Active Comments:Mother. Cancer Status:Active Comments:Father. Hypertension Status:Active Comments:Mother. Advance Directives No Advanced Directives Records FoundNo Advanced Directives Records FoundNo Advanced Directives Records FoundNo Advanced Directives Records FoundNo Advanced Directives Records Found Additional Source Comments INFORMATION SOURCE (unrecogn ized section and content) DATE CREATED AUTHOR AUTHOR'S ORGANIZ ATION 03/05/2021 [facility] DATE CREATED AUTHOR AUTHOR'S ORGANIZ ATION 12/07/2021 [facility] ([place]) DATE CREATED AUTHOR AUTHOR'S ORGANIZ ATION 12/05/2022 [facility] DATE CREATED AUTHOR AUTHOR'S ORGANIZ ATION [facility] Care Team (unrecognized sect ion and content) Care Team Personnel Name: ALBERTO HOLLY JR, MD Position: P4 Physician - General Surgery Med Service: Stella Abraham M.D. Member Role: Surgeon Address: Address: [address] [place] [address] [address] [id number]- Name: HAILEE REIS MD Member Role: Primary Care Address: Address: [address] [place] [id number] [place] Name: PHYSICIAN, NOT RECORDED Member Role: Primary Care Physician Care Team Related Persons Name: KAUSHIK BATES Address: Home [address] [place] [id number] Care Team Personnel Name: ALBERTO HOLLY JR, MD Position: P4 Physician - General Surgery Address: Address: [address] [place] [address] [address] [id number] Name: HAILEE REIS MD Address: Address: [address] [place] [id number] Name: PHYSICIAN, NOT RECORDED Member Role: Primary Care Physician Care Team Related Persons Name: KAUSHIK BATES Address: [address] [id number] [place] FOR RECORDS PERTAINING TO PATIENTS WHO ARE OR HAVE BEEN ENROLLED IN A CHEMICAL DEPENDENCY/SUBSTANCEABUSE PROGRAM, SOME INFORMATION MAY BE OMITTED. This clinical summary was aggregated from multiple sources. Caution should be exercised in using it in the provision of clinical care. This summary normalizes information from multiple sources, and as a consequence, information in this document may materially change the coding, format and clinical context of patient data. In addition, data may be omitted in some cases. CLINICAL DECISIONS SHOULD BE BASED ON THE PRIMARY CLINICAL RECORDS. [facility] [employer] [facility]. provides no warranty or guarantee of the accuracy or completeness of information in this document.
[2023-04-06 05:50] VITALS: BP 153/59; PULSE 53; RESP 18; TEMP 37; O2SAT 96; BMI 32.4
[2023-04-06] MEDS: Lactated Ringers 1,000 ML 15 ML IV (05:50)
--- NOTE | 2023-04-06 06:37 | HP.PCM_ITS ---
History and Physical Date of Admission: 04/06/23 72 F who presents to the office today for PMH acquired hypothyroidism, depression, anxiety, insomnia, HTN, GERD, Gout, Sjogrens. PSH Maggie with 270 fundoplication ; cholecystectomy; hysterectomy. Prior Dysphagia workup: Esophageal manometry 05.08.20 noting Low LES pressure; weak peristalsis in one swallow. Overall normal manometry. EGD 05.08.20 4cm hiatal hernia with Hook deployed noting increased acid exposure in upright position on day 1 and in upright and supine position on day 2 with positive correlation to reported symptoms. *[facility] established clinic 02.17.21 for evaluation of diarrhea for several months with urgency. Fundoplication performed . Biochemical workup elevated CRP 3.08 and gastrin 152. GAME, ANCA, LDH and celiac testing WNL Stool studies 02.19.21 With elastase low 86. EGD and colonoscopy 03.24.21. EGD found LA grade A reflux esophagitis without me taplasia; gastritis. H.Pylori negative. Colonoscopy found congested mucosa in recto-sigmoid colon, descending colon, ascending colon and terminal ileum; diverticulosis in recto-sigmoid colon and sigmoid colon without evidence of bleed. Biopsy ? No pathologic diagnosis in terminal or colon biopsies. Prominent lymphoid aggregates. Omeprazole 40mg BID and Carafate TID started. OV 04.07.21 CT abd/pel with pancreatic protocol 06.12.21 hepatic steatosis; small hiatal hernia. Contact 09.14.21 to report that she was continuing to have worsening diarrhea. Recommended utilizing Lomotil BID routine with one PRN administration. Biochemical workup Biochemical workup CBC, ESR, CMP, gastrin, IgGAM, VITALY, LDH, LUANN comp without pertinent abnormality CRP H3.33 Stool lactoferrin WNL General Surgeon Dr. Loyola ordered Upper GI 10.06.21 [facility] noting small sliding hiatal hernia with mucosal ring; small duodenal diverticulum; no evidence of reflux. Contact 11.12.21 to report that she was continuing to have loose stools and an upset stomach despite use of colestipol and Creon. Budesonide 9mg QD started. Contact 12.14.21 to ask if there was any update regarding her dysphagia. Recommended swallow study as Recent EGD did not show etiology. Diarrhea continued and colestipol stopped and cholestyramine started. Barium swallow 12.28.21 Esophageal clearance: esophageal retention with retrograde flow below pharyngoesophageal seg. Oropharyngeal swallow function grossly WNL. OV 01.05.22 Dysphagia ? EGD. EPI ? continue enzymes. Diarrhea ? continue cholestyramine, Stop budesonide. EGD 03.04.22 noting abnormal esophageal motility, spasm; irregular Zline 38cm. Esophageal Manometry 03.19.22 noting EGJ outflow obstruction, median IRP 20.4. OV 03.29.22 Each time she eats she will be doing fine with swallowing, will then have pain substernal/lower esophagus and regurgitate her food without emesis. Feels her bowel are doing well and are now food triggered with symptoms. Contact 06.14.22 with increased belching and bloating; start doxycycline for suspected SIBO. OV 06.24.22 noting improvement of belching and mild improvement of bloating. Typically gets yeast infection from antibiotic use and would like a prescription for this on hand. ? Biochemical 10.04.22 RAST WNL ROS Const Constitutional: No anorexia, body ache, chills, excessive sweating, fatigue, fever(s), frequent falls, headache(s), decreased energy, malaise, night sweats, snoring, weakness, weight change, sleep problems, abnormal sleep pattern, change in appetite or other ENT ENT: No headache(s), difficulty swallowing, lip swelling, neck pain, tongue swelling, throat swelling or other Resp Respiratory: No snoring or wheezing Cardio Cardiology: No chest pain at rest, chest pain with exertion, leg pain with exertion, excessive sweating, shortness of breath, dyspnea on exertion, generalized swelling, irregular heart rhythm, lightheadedness, orthopnea, radiating jaw, neck or arm pain, fast heart rate, slow heart rate, palpitations, difficulty breathing or other Gastro GI: Positive for diarrhea; No abdominal pain, belching, bloating, change in bowel habits, change in stool character, coffee ground emesis, constipation, cramping, heartburn, difficulty swallowing, feeling full early, excessive flatus, incontinent of stools, Vomiting blood/hematemesis, Blood in stool, loose stools, Black,tarry stools, nausea/dyspepsia, pain with swallowing, vomiting or other Musc Musculoskeletal: Positive for Arthritis and sciatica; No abnormal gait, joint pain, back pain, deformity, joint swelling, limited range of motion, loss of height, muscle cramps, muscle weakness, decreased muscle mass, myalgias, neck pain, numbness, radiating pain into limb, stiffness, tingling, restless legs, leg pain at night, leg pain with exertion or other Skin Skin: No itchy eyes Neuro Neurology: No abnormal gait, behavioral changes, confusion, weakness, frequent falls, headache(s), memory loss, numbness, tingling or restless legs Psych Psychiatric: No abnormal sleep pattern, No lack of enjoyment, No anxiety, No behavioral changes, No change in appetite, No confusion, No depression, No difficulty concentrating, No hopelessness, No irritability, No memory loss, No mood swings, No panic attacks, No paranoia, No Thoughts of harming yourself/Others, No hallucinations, No Behavioral Problems, No Compulsive Behavior, No hyperactivity, No inattentiveness, No obsessions/compulsions, No Temper Tantrums, No suicidal ideation and No other Endo Endocrine: No change in body appearance, cold intolerance, excessive sweating, fatigue, flushing, heat intolerance, increased thirst/drinking, increased hunger, increased urine leakage, weight change or other Aller/Imm Allergy/Immunologic: No food intolerance, itchy eyes, lip swelling, seasonal allergy symptoms, throat swelling, tongue swelling, hives, wheezing or other Rey/Lymp Hematologic/Lymphatic: No easy bleeding, easy bruising, enlarged lymph nodes or other Exam Const General: cooperative and comfortable Nutritional Appearance: average body habitus and well nourished [facility] Head: normal to inspection Ears: hearing grossly normal bilaterally Nose: external nose normal Face and sinus: normal facial exam Mouth: oral mucosae normal Throat: posterior oropharynx normal Eyes General: appearance normal, both eyes and all related structures Neck Neck: normal visual inspection Chest Chest palpation & inspection: normal inspection of the chest and normal palpation of entire chest wall Resp Effort & Inspection: normal respiratory effort Auscultation: Bilateral: Clear to Auscultation Cardio Palpation: normal PMI Rate: regular rate Rhythm: regular rhythm GI Inspection: normal to inspection Auscultation: normal bowel sounds Percussion: normal to percussion Palpation: no hepatosplenomegaly Skin General: no rashes or lesions noted Neuro General: patient alert Extrem General: normal to inspection Psych Affect: normal affect Quality Reporting Tobacco Screening ([facility] 138) Smoking Status: Never smoker Assessment and Plan Assessment and Plan (1) Pancreatic insufficiency: Status: Chronic Plan: She will continue to take pancreatic enzymes with each meal and snacks as previously ordered. In approximate 6 months time we can recheck her fecal elastase to make sure she is showing improvement as we try to titrate the medicine. (2) Difficulty swallowing: Status: Chronic Plan: She likely has an esophageal ring secondary to Schatzki's ring versus eosinophilic esophagitis versus elements of a sliding hiatal hernia. She will undergo an upper endoscopy to evaluate upper GI tract with possible dilation and biopsies of the distal esophagus with botox. (3) Diarrhea: Status: Chronic Plan: Induced diarrhea is responding very well to cholestyramine therapy. She will continue that twice daily basis. She is not suffering any side effects from the medicine as of today. Orders: Orders EGD 03/31/23 R13.10 - Dysphagia, unspecified I have examined the patient and the H&P has been reviewed. There are no clinical changes since date of exam.
[2023-04-06] MEDS: Botulinum Toxin A 100 Units Vial IJ (06:44)
[2023-04-06] MEDS: 0.9% Normal Saline (Pres. free 10 ML Vial (06:45)
[2023-04-06] MEDS: 0.9% Saline Lock 10 ML Syringe IV (06:46)
[2023-04-06 06:55] VITALS: BP 124/60; BP 153/59; PULSE 69; RESP 18; TEMP 36.5; O2SAT 96
--- NOTE | 2023-04-06 06:56 | OP.CCLET_ITS ---
04/06/2023 Jason Lockett Re : Upper GI endoscopy procedure for Shari Simmons Dear Warner This procedure was performed on Thursday, April 06, 2023. My impressions and recommendations are as follows: Impressions : - Abnormal esophageal motility, established esophageal spasm. Injected with botulinum toxin. - Normal stomach. - Normal second portion of the duodenum. - No specimens collected. Recommendations : - Discharge patient to home. - Resume previous diet. - Continue present medications. My findings are described in the full procedure note, which is enclosed. If I can be of further assistance, please feel free to contact me at . Sincerely, Tomas Álvarez DO 04/06/2023 6:55:39 AM This report has been signed electronically.
--- NOTE | 2023-04-06 06:56 | OP.EGD_ITS ---
Patient Name: Shari Simmons Procedure Date: 04/06/2023 6:06 AM Date of : 1950 Age: 72 Procedure: Upper GI endoscopy Indications: Dysphagia Providers: Tomas Álvarez DO Referring MD: Jason Lockett Medicines: Monitored Anesthesia Care Patient Profile: This is a 72 year old female. Refer to note in patient chart for documentation of history and physical. Patient has symptoms of chronic dysphagia and dysphagia with both liquids and solids. Complications: No immediate complications. Procedure: Pre-Anesthesia Assessment: - Prior to the procedure, a History and Physical was performed, and patient medications and allergies were reviewed. The patient is competent. The risks and benefits of the procedure and the sedation options and risks were discussed with the patient. All questions were answered and informed consent was obtained. Patient identification and proposed procedure were verified by the physician in the pre-procedure area. Mental Status Examination: alert and oriented. Airway Examination: normal oropharyngeal airway and neck mobility. Respiratory Examination: clear to auscultation. CV Examination: normal. Prophylactic Antibiotics: The patient does not require prophylactic antibiotics. Prior Anticoagulants: The patient has taken no anticoagulant or antiplatelet agents. ASA Grade Assessment: II - A patient with mild systemic disease. After reviewing the risks and benefits, the patient was deemed in satisfactory condition to undergo the procedure. The anesthesia plan was to use monitored anesthesia care (MAC). Immediately prior to administration of medications, the patient was re-assessed for adequacy to receive sedatives. The heart rate, respiratory rate, oxygen saturations, blood pressure, adequacy of pulmonary ventilation, and response to care were monitored throughout the procedure. The physical status of the patient was re-assessed after the procedure. After obtaining informed consent, the endoscope was passed under direct vision. Throughout the procedure, the patient's blood pressure, pulse, and oxygen saturations were monitored continuously. The gastroscope was introduced through the mouth, and advanced to the second part of duodenum. The upper GI endoscopy was accomplished without difficulty. The patient tolerated the procedure well. Scope In: 6:42:55 AM Scope Out: 6:50:32 AM Total Procedure Duration Time 0 hours 7 minutes 37 seconds Findings: Abnormal motility was noted in the esophagus. The cricopharyngeus was abnormal. There are extra peristaltic waves in the esophageal body. The distal esophagus/lower esophageal sphincter is spastic, but gives up passage to the endoscope. Tertiary peristaltic waves are noted. Area was successfully injected with 100 units botulinum toxin. The entire examined stomach was normal. The second portion of the duodenum was normal. Impression: - Abnormal esophageal motility, established esophageal spasm. Injected with botulinum toxin. - Normal stomach. - Normal second portion of the duodenum. - No specimens collected. Recommendation: - Discharge patient to home. - Resume previous diet. - Continue present medications. Procedure Code(s): --- Professional --- 32294, Esophagogastroduodenoscopy, flexible, transoral; with directed submucosal injection(s), any substance CPT copyright 2021 [employer]. All rights reserved. The codes documented in this report are preliminary and upon suction operator review may be revised to meet current compliance requirements. Tomas Álvarez DO 04/06/2023 6:55:39 AM This report has been signed electronically. Number of Addenda: 0 Note Initiated On: 04/06/2023 6:06 AM
[2023-04-06 07:00] VITALS: BP 131/70; BP 153/59; PULSE 66; RESP 18; O2SAT 92
[2023-04-06 07:06] VITALS: BP 140/67; BP 153/59; PULSE 68; RESP 16; TEMP 36.8; O2SAT 93
[2023-04-06 07:17] VITALS: BP 153/59
== END 2023-04-06 07:26 | disposition home or self-care (01) ==
LOC: EN 05:24 → AC 06:09
PROVIDERS: PCP Physician Assistant; Referring Provider Physician Assistant; Visit Provider Internal Medicine Gastroenterology
PROC: 0DJ08ZZ Inspection of Upper Intestinal Tract, Via Natural or Artificial Opening Endoscopic (ICD-10-PCS; CPT 43235; principal; 2023-04-06 06:25)
DX: K86.89 Other specified diseases of pancreas (principal); R13.10 Dysphagia, unspecified; K52.9 Noninfective gastroenteritis and colitis, unspecified; K22.4 Dyskinesia of esophagus; K22.89 Other specified disease of esophagus
CPT/HCPCS: 43236; J7120; A4216; J0585; J2405; J3490

== ENCOUNTER 2023-07-05 11:08 | Day surgery (SDC) | payer MEDICARE, SELFPAY ==
[2023-07-05 11:45] VITALS: BP 150/63; PULSE 58; RESP 20; TEMP 36.1; O2SAT 99; BMI 31.7
[2023-07-05] MEDS: Lactated Ringers 1,000 ML 15 ML IV (11:55)
--- NOTE | 2023-07-05 12:39 | HP.PCM_ITS ---
History and Physical Date of Admission: 07/05/23 72 F who presents to the office today for PMH acquired hypothyroidism, depression, anxiety, insomnia, HTN, GERD, Gout, Sjogrens. PSH Maggie with 270 fundoplication ; cholecystectomy; hysterectomy. Prior Dysphagia workup: Esophageal manometry 05.08.20 noting Low LES pressure; weak peristalsis in one swallow. Overall normal manometry. EGD 05.08.20 4cm hiatal hernia with Hook deployed noting increased acid exposure in upright position on day 1 and in upright and supine position on day 2 with positive correlation to reported symptoms. *[facility] established clinic 02.17.21 for evaluation of diarrhea for several months with urgency. Fundoplication performed . Biochemical workup elevated CRP 3.08 and gastrin 152. GAME, ANCA, LDH and celiac testing WNL Stool studies 02.19.21 With elastase low 86. EGD and colonoscopy 03.24.21. EGD found LA grade A reflux esophagitis without me taplasia; gastritis. H.Pylori negative. Colonoscopy found congested mucosa in recto-sigmoid colon, descending colon, ascending colon and terminal ileum; diverticulosis in recto-sigmoid colon and sigmoid colon without evidence of bleed. Biopsy ? No pathologic diagnosis in terminal or colon biopsies. Prominent lymphoid aggregates. Omeprazole 40mg BID and Carafate TID started. OV 04.07.21 CT abd/pel with pancreatic protocol 06.12.21 hepatic steatosis; small hiatal hernia. Contact 09.14.21 to report that she was continuing to have worsening diarrhea. Recommended utilizing Lomotil BID routine with one PRN administration. Biochemical workup Biochemical workup CBC, ESR, CMP, gastrin, IgGAM, VITALY, LDH, LUANN comp without pertinent abnormality CRP H3.33 Stool lactoferrin WNL General Surgeon Dr. Loyola ordered Upper GI 10.06.21 [facility] noting small sliding hiatal hernia with mucosal ring; small duodenal diverticulum; no evidence of reflux. Contact 11.12.21 to report that she was continuing to have loose stools and an upset stomach despite use of colestipol and Creon. Budesonide 9mg QD started. Contact 12.14.21 to ask if there was any update regarding her dysphagia. Recommended swallow study as Recent EGD did not show etiology. Diarrhea continued and colestipol stopped and cholestyramine started. Barium swallow 12.28.21 Esophageal clearance: esophageal retention with retrograde flow below pharyngoesophageal seg. Oropharyngeal swallow function grossly WNL. OV 01.05.22 Dysphagia ? EGD. EPI ? continue enzymes. Diarrhea ? continue cholestyramine, Stop budesonide. EGD 03.04.22 noting abnormal esophageal motility, spasm; irregular Zline 38cm. Esophageal Manometry 03.19.22 noting EGJ outflow obstruction, median IRP 20.4. OV 03.29.22 Each time she eats she will be doing fine with swallowing, will then have pain substernal/lower esophagus and regurgitate her food without emesis. Feels her bowel are doing well and are now food triggered with symptoms. Contact 06.14.22 with increased belching and bloating; start doxycycline for suspected SIBO. OV 06.24.22 noting improvement of belching and mild improvement of bloating. Typically gets yeast infection from antibiotic use and would like a prescription for this on hand. ? Biochemical 10.04.22 RAST WNL ROS Const Constitutional: No anorexia, body ache, chills, excessive sweating, fatigue, fever(s), frequent falls, headache(s), decreased energy, malaise, night sweats, snoring, weakness, weight change, sleep problems, abnormal sleep pattern, change in appetite or other ENT ENT: No headache(s), difficulty swallowing, lip swelling, neck pain, tongue swelling, throat swelling or other Resp Respiratory: No snoring or wheezing Cardio Cardiology: No chest pain at rest, chest pain with exertion, leg pain with exertion, excessive sweating, shortness of breath, dyspnea on exertion, generalized swelling, irregular heart rhythm, lightheadedness, orthopnea, radiating jaw, neck or arm pain, fast heart rate, slow heart rate, palpitations, difficulty breathing or other Gastro GI: Positive for diarrhea; No abdominal pain, belching, bloating, change in bowel habits, change in stool character, coffee ground emesis, constipation, cramping, heartburn, difficulty swallowing, feeling full early, excessive flatus, incontinent of stools, Vomiting blood/hematemesis, Blood in stool, loose stools, Black,tarry stools, nausea/dyspepsia, pain with swallowing, vomiting or other Musc Musculoskeletal: Positive for Arthritis and sciatica; No abnormal gait, joint pain, back pain, deformity, joint swelling, limited range of motion, loss of height, muscle cramps, muscle weakness, decreased muscle mass, myalgias, neck pain, numbness, radiating pain into limb, stiffness, tingling, restless legs, leg pain at night, leg pain with exertion or other Skin Skin: No itchy eyes Neuro Neurology: No abnormal gait, behavioral changes, confusion, weakness, frequent falls, headache(s), memory loss, numbness, tingling or restless legs Psych Psychiatric: No abnormal sleep pattern, No lack of enjoyment, No anxiety, No behavioral changes, No change in appetite, No confusion, No depression, No difficulty concentrating, No hopelessness, No irritability, No memory loss, No mood swings, No panic attacks, No paranoia, No Thoughts of harming yourself/Others, No hallucinations, No Behavioral Problems, No Compulsive Behavior, No hyperactivity, No inattentiveness, No obsessions/compulsions, No Temper Tantrums, No suicidal ideation and No other Endo Endocrine: No change in body appearance, cold intolerance, excessive sweating, fatigue, flushing, heat intolerance, increased thirst/drinking, increased hunger, increased urine leakage, weight change or other Aller/Imm Allergy/Immunologic: No food intolerance, itchy eyes, lip swelling, seasonal allergy symptoms, throat swelling, tongue swelling, hives, wheezing or other Rey/Lymp Hematologic/Lymphatic: No easy bleeding, easy bruising, enlarged lymph nodes or other Exam Const General: cooperative and comfortable Nutritional Appearance: average body habitus and well nourished [facility] Head: normal to inspection Ears: hearing grossly normal bilaterally Nose: external nose normal Face and sinus: normal facial exam Mouth: oral mucosae normal Throat: posterior oropharynx normal Eyes General: appearance normal, both eyes and all related structures Neck Neck: normal visual inspection Chest Chest palpation & inspection: normal inspection of the chest and normal palpation of entire chest wall Resp Effort & Inspection: normal respiratory effort Auscultation: Bilateral: Clear to Auscultation Cardio Palpation: normal PMI Rate: regular rate Rhythm: regular rhythm GI Inspection: normal to inspection Auscultation: normal bowel sounds Percussion: normal to percussion Palpation: no hepatosplenomegaly Skin General: no rashes or lesions noted Neuro General: patient alert Extrem General: normal to inspection Psych Affect: normal affect Quality Reporting Tobacco Screening ([facility] 138) Smoking Status: Never smoker Assessment and Plan Assessment and Plan (1) Pancreatic insufficiency: Status: Chronic Plan: She will continue to take pancreatic enzymes with each meal and snacks as previously ordered. In approximate 6 months time we can recheck her fecal elastase to make sure she is showing improvement as we try to titrate the medicine. (2) Difficulty swallowing: Status: Chronic Plan: She likely has an esophageal ring secondary to Schatzki's ring versus eosinophilic esophagitis versus elements of a sliding hiatal hernia. She will undergo an upper endoscopy to evaluate upper GI tract with possible dilation and biopsies of the distal esophagus with botox. (3) Diarrhea: Status: Chronic Plan: Induced diarrhea is responding very well to cholestyramine therapy. She will continue that twice daily basis. She is not suffering any side effects from the medicine as of today. Orders: Orders EGD 03/31/23 R13.10 - Dysphagia, unspecified I have examined the patient and the H&P has been reviewed. There are no clinical changes since date of exam.
[2023-07-05] MEDS: Botulinum Toxin A 100 Units Vial IJ (12:52)
[2023-07-05] MEDS: 0.9% Normal Saline (Pres. free 10 ML Vial (12:53)
[2023-07-05 13:00] VITALS: BP 141/72; BP 150/63; PULSE 61; RESP 16; TEMP 36.3; O2SAT 95
[2023-07-05 13:05] VITALS: BP 120/61; BP 150/63; PULSE 57; RESP 16; O2SAT 93
--- NOTE | 2023-07-05 13:07 | OP.EGD_ITS ---
Patient Name: Shari Simmons Procedure Date: 07/05/2023 12:36 PM Date of : 1950 Age: 73 Procedure: Upper GI endoscopy Indications: Dysphagia, For botulinum toxin injection of achalasia Providers: Tomas Álvarez DO Referring MD: Jason Lockett Medicines: Monitored Anesthesia Care Patient Profile: This is a 73 year old female. Refer to note in patient chart for documentation of history and physical. Patient has symptoms of acute cough, chronic cough and dysphagia with both liquids and solids. Complications: No immediate complications. Procedure: Pre-Anesthesia Assessment: - Prior to the procedure, a History and Physical was performed, and patient medications and allergies were reviewed. The patient is competent. The risks and benefits of the procedure and the sedation options and risks were discussed with the patient. All questions were answered and informed consent was obtained. Patient identification and proposed procedure were verified by the physician in the pre-procedure area. Mental Status Examination: alert and oriented. Airway Examination: normal oropharyngeal airway and neck mobility. Respiratory Examination: clear to auscultation. CV Examination: normal. Prophylactic Antibiotics: The patient does not require prophylactic antibiotics. Prior Anticoagulants: The patient has taken no anticoagulant or antiplatelet agents. ASA Grade Assessment: II - A patient with mild systemic disease. After reviewing the risks and benefits, the patient was deemed in satisfactory condition to undergo the procedure. The anesthesia plan was to use monitored anesthesia care (MAC). Immediately prior to administration of medications, the patient was re-assessed for adequacy to receive sedatives. The heart rate, respiratory rate, oxygen saturations, blood pressure, adequacy of pulmonary ventilation, and response to care were monitored throughout the procedure. The physical status of the patient was re-assessed after the procedure. After obtaining informed consent, the endoscope was passed under direct vision. Throughout the procedure, the patient's blood pressure, pulse, and oxygen saturations were monitored continuously. The gastroscope was introduced through the mouth, and advanced to the second part of duodenum. The upper GI endoscopy was accomplished without difficulty. The patient tolerated the procedure well. Scope In: 12:50:33 PM Scope Out: 12:56:48 PM Total Procedure Duration Time 0 hours 6 minutes 15 seconds Findings: Abnormal motility was noted in the middle third of the esophagus and in the lower third of the esophagus. The cricopharyngeus was normal. There are extra peristaltic waves in the esophageal body. The distal esophagus/lower esophageal sphincter is spastic, but gives up passage to the endoscope. Tertiary peristaltic waves are noted. Area was successfully injected with 100 units botulinum toxin. A small hiatal hernia was present. Mild gastric antral vascular ectasia without bleeding was present in the gastric antrum. The first portion of the duodenum was normal. Impression: - Abnormal esophageal motility, consistent with achalasia. Injected with botulinum toxin. - Small hiatal hernia. - Gastric antral vascular ectasia without bleeding. - Normal first portion of the duodenum. - No specimens collected. Recommendation: - Discharge patient to home. - Resume previous diet. - Continue present medications. Procedure Code(s): --- Professional --- 62559, Esophagogastroduodenoscopy, flexible, transoral; with directed submucosal injection(s), any substance CPT copyright 2021 [employer]. All rights reserved. The codes documented in this report are preliminary and upon edge inker uppers review may be revised to meet current compliance requirements. Tomas Álvarez DO 07/05/2023 1:06:34 PM This report has been signed electronically. Number of Addenda: 0 Note Initiated On: 07/05/2023 12:36 PM
--- NOTE | 2023-07-05 13:07 | OP.CCLET_ITS ---
07/05/2023 Jason Lockett Re : Upper GI endoscopy procedure for Shari Simmons Dear Warner This procedure was performed on Wednesday, July 05, 2023. My impressions and recommendations are as follows: Impressions : - Abnormal esophageal motility, consistent with achalasia. Injected with botulinum toxin. - Small hiatal hernia. - Gastric antral vascular ectasia without bleeding. - Normal first portion of the duodenum. - No specimens collected. Recommendations : - Discharge patient to home. - Resume previous diet. - Continue present medications. My findings are described in the full procedure note, which is enclosed. If I can be of further assistance, please feel free to contact me at . Sincerely, Tomas Álvarez, 07/05/2023 1:06:34 PM This report has been signed electronically.
[2023-07-05 13:12] VITALS: BP 145/70; BP 150/63; PULSE 60; RESP 16; TEMP 36.3; O2SAT 95
[2023-07-05 13:24] VITALS: BP 150/63
== END 2023-07-05 13:25 | disposition home or self-care (01) ==
LOC: EN 11:10 → AC 11:12
PROVIDERS: PCP Physician Assistant; Referring Provider Physician Assistant; Visit Provider Internal Medicine Gastroenterology
PROC: 0DJ08ZZ Inspection of Upper Intestinal Tract, Via Natural or Artificial Opening Endoscopic (ICD-10-PCS; CPT 43235; principal; 2023-07-05 12:25)
DX: K22.0 Achalasia of cardia (principal); R13.10 Dysphagia, unspecified; K44.9 Diaphragmatic hernia without obstruction or gangrene; K31.819 Angiodysplasia of stomach and duodenum without bleeding; K86.89 Other specified diseases of pancreas; Z90.49 Acquired absence of other specified parts of digestive tract; Z90.710 Acquired absence of both cervix and uterus; I10 Essential (primary) hypertension; K52.9 Noninfective gastroenteritis and colitis, unspecified
CPT/HCPCS: 43236; J7120; A4216; J0585; J2405; J3490

== ENCOUNTER → 2024-02-28 | Outpatient (CLI) | payer MEDICARE, SELFPAY | END | disposition home or self-care (01) | LOC: LABSPEC 15:32 | PROVIDERS: PCP Physician Assistant; Referring Provider Otolaryngology Otolaryngology/Facial Plastic Surgery; Visit Provider Otolaryngology Otolaryngology/Facial Plastic Surgery | DX: J32.9 Chronic sinusitis, unspecified (principal) | CPT/HCPCS: 87070; 87205 ==

== ENCOUNTER 2024-04-24 11:11 | Day surgery (SDC) | payer MEDICARE, SELFPAY ==
[2024-04-24] VITALS (8 sets, daily range): BP systolic 99–129; BP diastolic 59–70; PULSE 68–70; RESP 16; TEMP 36.5–37.1; O2SAT 92–97; BMI 32.8
--- NOTE | 2024-04-24 12:19 | PCM.PRE.AN2 ---
ASA Classification* ASA Classification ASA Classification: 2 Assessment & Plan Anesthesia* Anesthesia Assessment Anesthesia Assessment: Discussed sedation and/or anesthesia options, risks, benefits, and alternatives with patient/parents/legal guardian/POA. Questions invited. The patient/parents/legal guardian/POA seems to understand and agrees to proceed with anesthesia plan. Reviewed the physical assessment, medical history, allergy history and patient home medications list prior to surgery/procedure/anesthetic and documented any changes. Performed airway and anesthesia risk assessments. Anesthesia Type Anesthesia Type: General History Source History Obtained from:: Patient Anesthesia Focused Assessment* Temperature: 98.4 F Pulse Rate: 70 Blood Pressure: 124/59 Respiratory Rate: 16 Pulse Ox: 97 Oxygen Delivery Method: Room Air Airway Assessment Mouth opens: >3 cm Mallampati Score: II Teeth Condition: Intact Neck Range of motion (ROM): Full ROM Focused Labs Anesthesia Preop lab: CBC WBC 6.4 K/mm3 (4.4-11.0) 09/16/21 07:46 09/16/21 RBC 4.11 M/mm3 (4.2-5.4) L 09/16/21 07:46 09/16/21 Hgb 12.5 g/dL (12.0-15.0) 09/16/21 07:46 09/16/21 Hct 38.7 % (37-47) 09/16/21 07:46 09/16/21 Plt Count 327 K/mm3 (150-450) 09/16/21 07:46 09/16/21 CHEMISTRY Potassium 3.6 mmol/L (3.5-5.1) 09/16/21 07:46 09/16/21 Sodium 140 mmol/L (136-145) 09/16/21 07:46 09/16/21 BUN 17 mg/dL (7-18) 09/16/21 07:46 09/16/21 Creatinine 0.70 mg/dL (0.55-1.02) 09/16/21 07:46 09/16/21 Glucose 74 mg/dL (74-106) 09/16/21 07:46 09/16/21 COAG Pre-Assessment Diagnosis/Proposed Procedure Planned Operative Procedure(s): EGD Anesthesia History 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 When Was Last Pacemaker Check QUESTION #4 FULL TEXT: You/Your Family Experience fever (hyperthermia) with Anesthesia Any additional information?: No Last Oral Intake Last Oral intake: Last Oral Intake NPO since 18:00 04/24/24 11:28 Meds taken in AM with sips of Yes 04/24/24 11:28 water? 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 Female No 04/23/24 15:29 HX of Motion Sickness No 04/23/24 15:29 HX of N/V After Surgery No 04/23/24 15:29 Non-Smoker Yes 04/23/24 15:29 Duration of Surgery greater No 04/23/24 15:29 than 60 minutes Number of Risk Factors 1 04/23/24 15:29 PONV Score Low Risk 04/23/24 15:29 Any additional information?: No Height & Weight Height & Weight: Anesthesia: Height & Weight Height 5 ft 7 in 04/24/24 11:28 Weight: 95 kg 04/24/24 11:28 Body Mass Index (BMI) 32.8 04/24/24 11:28 Respiratory Assessment Respiratory Assessment - 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 Has anyone observed you stop No 04/23/24 15:29 breathing during sleep? STOP Results Negative 04/23/24 15:29 QUESTION #5 FULL TEXT : Do you snore loudly (louder than talking or can be heard through closed doors)? 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 Specify any problems Hx of Preganancy in last 3 No 04/23/24 15:29 Months Nurse Filling Out Transfusion VCHRISTIN 04/23/24 15:29 & Questions: Date: 04/23/24 04/23/24 15:29 Time: 15:30 04/23/24 15:29 Patient unable to answer at this time (ie. 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 Hx Now Gestational Age (in weeks): EDC: Hx Hx Para Hx Section SAB Any additional information?: No PFSH Medical History Cancer Depression Spasm of esophagus Post-menopausal Lymphocytic gastritis History of stress test History of echocardiogram Arthritis Difficulty swallowing History of hiatal hernia Gastric reflux Non-smoker Hypertension Home Medications ?Medication ?Instructions ?Recorded ?Last Taken ?Type escitalopram oxalate 10 mg tablet 10 mg PO DAILY 02/17/21 04/23/24 History (Lexapro) zolpidem 5 mg tablet 5 mg PO QHS PRN SLEEP 09/17/22 04/23/24 History lisinopril 10 mg tablet 10 mg PO DAILY 03/24/23 04/23/24 History metoprolol tartrate 25 mg tablet 12.5 mg PO DAILY 07/01/23 04/24/24 History [id number] 3 cap PO QAC #300 caps 09/21/23 04/23/24 Rx 40,000-126,000-168,000 unit capsule, delay rel (Zenpep) omeprazole 40 mg capsule,delayed 40 mg PO DAILY PRN GERD #90 caps 04/02/24 04/23/24 Rx release colestipol 1 gram tablet 2 g (2 x 1 gram) PO DAILY #60 tabs 04/19/24 04/23/24 Rx Allergy/AdvReac Type Severity Reaction Status Date / Time No Known Allergies Allergy Verified 04/24/24 11:24 Surgical History History of total left hip arthroplasty Hx of esophagogastroduodenoscopy Hx of colonoscopy History of Maggie fundoplication History of left hip replacement Social History Smoking Status: Never smoker Review of Systems (Anesthesia) ROS Narrative System reviewed and no additional complaints, except as documented. Physical Exam Const alert, oriented x3 and average body habitus Resp normal respiratory effort, normal air movement and clear to auscultation bilaterally Cardio regular rate, regular rhythm, no murmurs and diaphoretic
--- NOTE | 2024-04-24 12:30 | EGD_PTH ---
PATIENT: MORGAN SUAREZ LOC: EN U#:[id number] AGE/SX: 73/F ROOM: RE04/24/[address]: Dr. Tomas Álvarez DO : 1950 BED: DIS: 04/24/2024 SPEC #: [id number] RECD: 04/25/24 11:12 STATUS: MELISSA AMBERLY #: [id number] RENATO: 04/24/24 12:[address]: Tomas Álvarez DEPT: SURGICAL PATHOLOGY RECD BY: Dagoberto Alston ENTERED: 04/25/24 11:13 SP TYPE: EGD BIOPSY OT DR: SONIDO Lockett Tissues: Gastric mucous membrane Procedures: Immunohistochemical Stains Surgery Specimen Level IV HEADER OPERATION: EGD with biopsy and Botox injection PRE-OP DIAGNOSIS: Gas bloat syndrome, difficulty swallowing TISSUE SUBMITTED: Gastric antrum biopsy MICROSCOPIC DIAGNOSIS STOMACH, ANTRUM, BIOPSY: * Chronic gastritis with features of reactive gastropathy. * Focal intestinal-type mucosa - see note. * IHC is negative for H pylori organisms. * Note: The focal intestinal type mucosa may represent intestinal metaplasia vs biopsy from the gastroduodenal junction. Recommend clinical/endoscopic correlation. No dysplasia is seen. MICROSCOPIC DESCRIPTION Slides are reviewed. These tests were developed and their performance characteristics determined by [facility]. They may not have been cleared or approved by the U.S. Food and Drug Administration. The FDA has determined that such clearance or approval is not necessary. The above immunohistochemical/dualISH markers are ordered and reviewed by the Pathologist. GROSS DESCRIPTION Received in fixative is one container labeled with the patient's name and designated Gastric antrum biopsy. The specimen consists of two irregular fragments of light bermudez soft tissue that in aggregate measure 1 x 0.3 x 0.2 cm. The specimen is totally submitted in one cassette. 04/25/2024 CPT:20389,27844
--- NOTE | 2024-04-24 12:51 | HP.PCM_ITS ---
HPI - General General Date of Admission: 04/24/24 Date of Service: 04/24/24 Chief Complaint: dysphagia HPI Narrative MORGAN BATES, is a 73 F who presents for endoscopic treatment of esophageal dysphagia secondary to achalasia. PMH acquired hypothyroidism, depression, anxiety, insomnia, HTN, GERD, Gout, Sjogrens. PSH Maggie with 270 fundoplication ; cholecystectomy; hysterectomy. Prior Dysphagia workup: Esophageal manometry 05.08.20 noting Low LES pressure; weak peristalsis in one swallow. Overall normal manometry. EGD 05.08.20 4cm hiatal hernia with Hook deployed noting increased acid exposure in upright position on day 1 and in upright and supine position on day 2 with positive correlation to reported symptoms. *[facility] established clinic 02.17.21 for evaluation of diarrhea for several months with urgency. Fundoplication performed . Biochemical workup elevated CRP 3.08 and gastrin 152. GAME, ANCA, LDH and celiac testing WNL Stool studies 02.19.21 With elastase low 86. EGD and colonoscopy 03.24.21. EGD found LA grade A reflux esophagitis without metaplasia; gastritis. H.Pylori negative. Colonoscopy found congested mucosa in recto-sigmoid colon, descending colon, ascending colon and terminal ileum; diverticulosis in recto-sigmoid colon and sigmoid colon without evidence of bleed. Biopsy ? No pathologic diagnosis in terminal or colon biopsies. Prominent lymphoid aggregates. Omeprazole 40mg BID and Carafate TID started. OV 04.07.21 CT abd/pel with pancreatic protocol 06.12.21 hepatic steatosis; small hiatal hernia. Contact 09.14.21 to report that she was continuing to have worsening diarrhea. Recommended utilizing Lomotil BID routine with one PRN administration. Biochemical workup Biochemical workup CBC, ESR, CMP, gastrin, IgGAM, VITALY, LDH, LUANN comp without pertinent abnormality CRP H3.33 Stool lactoferrin WNL General Surgeon Dr. Loyola ordered Upper GI 10.06.21 [facility] noting small sliding hiatal hernia with mucosal ring; small duodenal diverticulum; no evidence of reflux. Contact 11.12.21 to report that she was continuing to have loose stools and an upset stomach despite use of colestipol and Creon. Budesonide 9mg QD started. Contact 12.14.21 to ask if there was any update regarding her dysphagia. Recommended swallow study as Recent EGD did not show etiology. Diarrhea continued and colestipol stopped and cholestyramine started. Barium swallow 12.28.21 Esophageal clearance: esophageal retention with retrograde flow below pharyngoesophageal seg. Oropharyngeal swallow function grossly WNL. OV 01.05.22 Dysphagia ? EGD. EPI ? continue enzymes. Diarrhea ? continue cholestyramine, Stop budesonide. EGD 03.04.22 noting abnormal esophageal motility, spasm; irregular Zline 38cm. Esophageal Manometry .05.06 noting EGJ outflow obstruction, median IRP 20.4. OV 03.29.22 Each time she eats she will be doing fine with swallowing, will then have pain substernal/lower esophagus and regurgitate her food without emesis. Feels her bowel are doing well and are now food triggered with symptoms. Contact 06.14.22 with increased belching and bloating; start doxycycline for suspected SIBO. OV 06.24.22 noting improvement of belching and mild improvement of bloating. Typically gets yeast infection from antibiotic use and would like a prescription for this on hand. ? Biochemical 8 RAST WNL EGD 04.06.23 Abnormal esophageal motility, established esophageal spasm. Injected with botulinum toxin. Normal stomach. Normal second portion of the duodenum. No specimens collected. EGD 07.05.23 Abnormal esophageal motility, consistent with achalasia. Inje cted with botulinum toxin. Small hiatal hernia. Gastric antral vascular ectasia without bleeding. Normal first portion of the duodenum. No specimens collected. OV 7. pt reports that she is having continued choking and difficulty swallowing. Pt reports that she is having gas in her chest several times a week. Pt reports a loose bm every morning; denies blood in the stool. Continues Colestipol, Zenpep, and Omeprazole. OV 03.13. pt reports continued gas pain that she reports is in her chest and bands around to her back. Pt reports continued difficulty swallowing and states that she may need botox again. Continues with omeprazole, zenpep, colestipol, and PRN Lomotil. [facility] Medical History Cancer Depression Spasm of esophagus Post-menopausal Lymphocytic gastritis History of stress test History of echocardiogram Arthritis Difficulty swallowing History of hiatal hernia Gastric reflux Non-smoker Hypertension Home Medications ?Medication ?Instructions ?Recorded ?Last Taken ?Type escitalopram oxalate 10 mg tablet 10 mg PO DAILY 02/1704/23/24 History (Lexapro) zolpidem 5 mg tablet 5 mg PO QHS PRN SLEEP 04/23/24 History lisinopril 10 mg tablet 10 mg PO DAILY 03/24/2304/14 History metoprolol tartrate 25 mg tablet 12.5 mg PO DAILY 06/1404/24/24 History zjqxhk-cyrlpfzf-jarxavu 3 cap PO QAC #300 caps 09/2004/23/24 Rx 40,000-126,000-168,000 unit capsule, delay rel (Zenpep) omeprazole 40 mg capsule,delayed 40 mg PO DAILY PRN GE RD #90 caps 04/02/24 04/23/24 Rx release colestipol 1 gram tablet 2 g (2 x 1 gram) PO DAILY #6 0 tabs 04/19/24 04/23/24 Rx Allergy/AdvReac Type Severity Reaction Status Date / Time No Known Allergies Allergy Verified 04/24/24 11:24 Surgical History History of total left hip arthroplasty Hx of esophagogastroduodenoscopy Hx of colonoscopy History of Maggie fundoplication History of left hip replacement Social History Smoking Status: Never smoker ROS Constitutional Constitutional: Denies fatigue, fever(s), poor appetite, weight gain or weight loss Gastrointestinal Gastrointestinal: Denies belching, bloating, change in bowel habits, change in stool character, chewing difficulty, coffee ground emesis, constipation, cramp ing, diarrhea, dyspepsia, dysphagia, early satiety, excessive flatus, fecal incontinence, heartburn, hematemesis, hematochezia, hemorrhoids, loose stools, melena, nausea, odynophagia, rectal bleeding, tenesmus, vomiting or weight changes Vital Signs Vital Signs Vital Signs: 04/24/24 11:28 04/24/24 11:28 04/24/24 12:22 Temperature 98.4 F 98.4 F Temperature Source Temporal Pulse Rate 70 70 Respiratory Rate 16 16 Respiratory Pattern Normal Blood Pressure 124/59 H 124/59 H Blood Pressure Mean 80 Blood Pressure Source Monitor Blood Pressure Position Semi-Fowlers Blood Pressure Location Left Arm Pulse Ox 97 97 Oxygen Delivery Method Room Air Room Air Weight Weight: 209 lb 7.026 oz Body Mass Index (BMI) 32.8 Physical Exam Const alert, oriented x3 and average body habitus Resp normal respiratory effort, normal air movement and clear to auscultation bilaterally Cardio regular rate, regular rhythm, no murmurs and diaphoretic Assessment & Plan Assessment/Plan (1) Gas bloat syndrome: (2) Difficulty swallowing: (3) Diarrhea: (4) Pancreatic insufficiency: (5) Achalasia: PLAN: Plan Assessment and Plan Assessment and Plan (1) Pancreatic insufficiency: Status: Chronic Plan: She will continue to take pancreatic enzymes with each meal and snacks as previously ordered. In approximate 6 months time we can recheck her fecal elastase to make sure she is showing improvement as we try to titrate the medicine. (2) Difficulty swallowing: Status: Chronic Plan: She likely has an esophageal ring secondary to Schatzki's ring versus eosinophilic esophagitis versus elements of a sliding hiatal hernia. She will undergo an upper endoscopy to evaluate upper GI tract with possible dilation and biopsies of the distal esophagus with botox. (3) Diarrhea: Status: Chronic Plan: Induced diarrhea is responding very well to cholestyramine therapy. She will continue that twice daily basis. She is not suffering any side effects from the medicine as of today. (4) Gas bloat syndrome: Status: Acute Plan: BLOATING AND FLATULENCE (KNOWN GAS BLOAT) AFTER ANTI-REFLUX SURGERY it is common for some people to experience discomfort from bloating and flatulence. Because the operation is a one-way valve, any air or gas which is swallowed cannot easily be belched back. There are some measures that I suggested to her in order to improve her symptoms. Prevention * Watching your diet to see if any food makes the condition worse, and avoiding these foods. Some common foods that can make bloating worse include beans, lentils, fermented foods and beverages including vinegar and alcohol, plus food rich in sulphur (eggs, onion and garlic), and raw foods. * Milk may even cause excess bloating and flatulence, particularly in people who are lactose intolerant * Avoid eating too much fat in a meal * Avoid swallowing air whilst eating and drinking * Ensure you chew your food thoroughly and eat slowly * Avoid fizzy / carbonated drinks (soft drinks, soda water and beer) * Avoid chewing gum and smoking * Avoid eating just before bed time * Try eating smaller meals more often? Relief of discomfort * Regular exercise, particularly gentle exercise after meals * Over the counter preparations such as peppermint capsules, WindEze, Charcoal type medication, Beano dietary supplement (These medication types can help absorb gas or prevent its formation and reduce bloating).To help take away a lot of the symptoms expeditiously we will give her Xifaxan 550 mg 3 times a day for 2 weeks with 1 refill. She will likely have to take this form I will as she instituted these other prevention measures and measures to relieve discomfort.
[2024-04-24] MEDS: 0.9% Saline Lock 10 ML Syringe IV (13:15)
[2024-04-24] MEDS: Botulinum Toxin A 100 Units Vial IJ (13:15)
[2024-04-24] MEDS: 0.9% Normal Saline (Pres. free 10 ML Vial (13:15)
--- NOTE | 2024-04-24 13:28 | PCM.POST.ANE ---
Anesthesia: Postop Eval I Current Vital Signs Temperature: 97.8 F Pulse Rate: 70 Blood Pressure: 128/63 Respiratory Rate: 16 Pulse Ox: 92 Oxygen Delivery Method: Room Air Assessment Airway patent: Yes Spontaneous unlabored respirations: Yes Mental status: Awake and Calm nausea: No Vomiting: No Anesthesia Complication: No Fluid Hydration Crystalloid volume administer (ml): 30 Total IV fluid infused: 30 Progress Note Anesthesia document: Postop Eval 1 completed: Yes
--- NOTE | 2024-04-24 13:30 | OP.EGD_ITS ---
Patient Name: Sahri Simmons Procedure Date: 04/24/2024 12:53 PM Date of : 1950 Age: 73 Procedure: Upper GI endoscopy Indications: Dysphagia, Achalasia, For botulinum toxin injection of achalasia Providers: Tomas Álvarez DO Referring MD: Jason Lockett Medicines: Monitored Anesthesia Care Patient Profile: This is a 73 year old female. Refer to note in patient chart for documentation of history and physical. Patient has symptoms of acute right upper quadrant abdominal pain, chronic dysphagia and dysphagia with both liquids and solids. Complications: No immediate complications. Procedure: Pre-Anesthesia Assessment: - Prior to the procedure, a History and Physical was performed, and patient medications and allergies were reviewed. The patient is competent. The risks and benefits of the procedure and the sedation options and risks were discussed with the patient. All questions were answered and informed consent was obtained. Patient identification and proposed procedure were verified by the physician in the pre-procedure area. Mental Status Examination: alert and oriented. Airway Examination: normal oropharyngeal airway and neck mobility. Respiratory Examination: clear to auscultation. CV Examination: normal. Prophylactic Antibiotics: The patient does not require prophylactic antibiotics. Prior Anticoagulants: The patient has taken no anticoagulant or antiplatelet agents except for NSAID medication. ASA Grade Assessment: II - A patient with mild systemic disease. After reviewing the risks and benefits, the patient was deemed in satisfactory condition to undergo the procedure. The anesthesia plan was to use monitored anesthesia care (MAC). Immediately prior to administration of medications, the patient was re-assessed for adequacy to receive sedatives. The heart rate, respiratory rate, oxygen saturations, blood pressure, adequacy of pulmonary ventilation, and response to care were monitored throughout the procedure. The physical status of the patient was re-assessed after the procedure. After obtaining informed consent, the endoscope was passed under direct vision. Throughout the procedure, the patient's blood pressure, pulse, and oxygen saturations were monitored continuously. The Endoscope was introduced through the mouth, and advanced to the second part of duodenum. The upper GI endoscopy was accomplished without difficulty. The patient tolerated the procedure well. Scope In: 1:11:04 PM Scope Out: 1:20:11 PM Total Procedure Duration Time 0 hours 9 minutes 7 seconds Findings: Abnormal motility was noted in the esophagus. The cricopharyngeus was abnormal. There is a decrease in motility of the esophageal body. The distal esophagus/lower esophageal sphincter is spastic, but gives up passage to the endoscope. Secondary and tertiary peristaltic waves are noted. Area was successfully injected with 100 units botulinum toxin. A small hiatal hernia was present. Evidence of a fundoplication was found in the gastric fundus. The wrap appeared loose. This was traversed. Patchy mildly erythematous mucosa without bleeding was found in the gastric antrum. Biopsies were taken with a cold forceps for histology. Verification of patient identification for the specimen was done. Estimated blood loss was minimal. No gross lesions were noted in the second portion of the duodenum. Impression: - Abnormal esophageal motility, established achalasia. Injected with botulinum toxin. - Small hiatal hernia. - A fundoplication was found. The wrap appears loose. - Erythematous mucosa in the antrum. Biopsied. - No gross lesions in the second portion of the duodenum. Recommendation: - Discharge patient to home. - Resume previous diet. - Continue present medications. - Await pathology results. - Repeat upper endoscopy. Procedure Code(s): --- Professional --- 63674, Esophagogastroduodenoscopy, flexible, transoral; with biopsy, single or multiple 60166, 59,51, Esophagogastroduodenoscopy, flexible, transoral; with directed submucosal injection(s), any substance CPT copyright 2021 [employer]. All rights reserved. The codes documented in this report are preliminary and upon manufacturing lead review may be revised to meet current compliance requirements. Tomas Álvarez DO 04/24/2024 1:30:04 PM This report has been signed electronically. Number of Addenda: 0 Note Initiated On: 04/24/2024 12:53 PM
--- NOTE | 2024-04-24 13:30 | OP.CCLET_ITS ---
04/24/2024 Jason Lockett Re : Upper GI endoscopy procedure for Shari Simmons Dear Warner This procedure was performed on Wednesday, April 24, 2024. My impressions and recommendations are as follows: Impressions : - Abnormal esophageal motility, established achalasia. Injected with botulinum toxin. - Small hiatal hernia. - A fundoplication was found. The wrap appears loose. - Erythematous mucosa in the antrum. Biopsied. - No gross lesions in the second portion of the duodenum. Recommendations : - Discharge patient to home. - Resume previous diet. - Continue present medications. - Await pathology results. - Repeat upper endoscopy. My findings are described in the full procedure note, which is enclosed. If I can be of further assistance, please feel free to contact me at . Sincerely, Tomas Álvarez, 04/24/2024 1:30:04 PM This report has been signed electronically.
--- NOTE | 2024-04-24 17:13 | PCM.POSTANE2 ---
Anesthesia Postop Eval I Sum Postop Eval Completion status Anesthesia document: Postop Eval 1 completed: Yes Anesthesia Postop Eval I Summary Anesthesia Postop Eval I Summary: Anesthesia Postop Eval I: Assessment Summary Airway patent Yes 04/24/24 13:29 [email or web address] Spontaneous unlabored Yes 04/24/24 13:29 [email or web address] respirations Mental status Awake,Calm 04/24/24 13:29 [email or web address] nausea No 04/24/24 13:29 [email or web address] Vomiting No 04/24/24 13:29 [email or web address] Anesthesia Postop Eval I: Fluid Summary Crystalloid volume administer 30 04/24/24 13:29 [email or web address] (ml) Colloids volume administered ( ml) Blood Product volume administered (ml) Total IV fluid infused 30 04/24/24 13:29 [email or web address] Anesthesia Postop Eval I: Summary Notes Anesthesia Complication No 04/24/24 13:29 [email or web address] Anesthesia Complication Comment: Post-operative progress note Anesthesia: Postop Eval II Evaluation Mental status: Awake Pain Level: 0 nausea: No Vomiting: No Complications Anesthesia Complication: No
== END 2024-04-24 13:52 | disposition home or self-care (01) ==
LOC: EN 11:12 → AC 11:16
PROVIDERS: PCP Physician Assistant; Referring Provider Physician Assistant; Visit Provider Internal Medicine Gastroenterology
PROC: 0DJ08ZZ Inspection of Upper Intestinal Tract, Via Natural or Artificial Opening Endoscopic (ICD-10-PCS; CPT 43235; principal; 2024-04-24 12:25)
DX: R13.10 Dysphagia, unspecified (principal); K22.0 Achalasia of cardia; Z90.710 Acquired absence of both cervix and uterus; K44.9 Diaphragmatic hernia without obstruction or gangrene; I10 Essential (primary) hypertension; K86.89 Other specified diseases of pancreas; R19.7 Diarrhea, unspecified; Z90.49 Acquired absence of other specified parts of digestive tract; F32.A Depression, unspecified; Z79.899 Other long term (current) drug therapy; R14.0 Abdominal distension (gaseous); K30 Functional dyspepsia; K21.9 Gastro-esophageal reflux disease without esophagitis; K29.50 Unspecified chronic gastritis without bleeding
CPT/HCPCS: 43236; 43239; 88305; 88342; A4216; J0585; J2405

== ENCOUNTER → 2024-05-28 | Outpatient (CLI) | payer MEDICARE, SELFPAY ==
--- NOTE | 2024-05-28 13:20 | CT_ITS ---
PROCEDURE: ABDOMEN/PELVIS WITH CONTRAST 05/28/2024 REASON FOR EXAM: ACHALASIA, HIATAL HERNIA, S/P FUNDOPLICATION TECHNIQUE: Abdomen and pelvis CT with intravenous contrast. Coronal and Sagittal reconstruction series were provided. PATIENT PREPARATION: Per protocol ORAL CONTRAST TYPE: Given. CONTRAST: Isovue-300 VOLUME: 91 mL One or more dose reduction techniques were used (e.g., Automated exposure control, adjustment of the mA and/or kV according to patient size, use of iterative reconstruction technique. RADIATION DOSE SUMMARY: CTDlvol: 16.5 mGy DLP: 961.45 mGycm COMPARISON: Comparison is made with prior study dated June 12, 2001. FINDINGS: Lung bases: Unremarkable. Coronary artery calcification. Liver: Diffuse fatty infiltration. Gallbladder: Surgically absent. Spleen: Normal size. Pancreas: Normal size without evidence of mass surrounding inflammation or ductal dilation. Adrenals: Unremarkable. Kidneys: Mild right hydronephrosis. Bladder: Unremarkable Reproductive Organs: Prior hysterectomy. Adnexal regions are unremarkable. Bowel: Colonic diverticulosis without diverticulitis. Residual small to moderate-sized hiatal hernia. Appendix: The appendix is not identified. There is no inflammatory process identified in the right lower quadrant to suggest appendicitis. Lymph nodes: Unremarkable. Vasculature: Mild diffuse atherosclerotic calcifications are noted. Peritoneum / Retroperitoneum: Unremarkable Bones: Degenerative changes of the spine. Status post left total hip replacement. CT/Abdomen/Pelvis WITH Contrast IMPRESSION: Fatty infiltration of the liver. Status post cholecystectomy. Residual hiatal hernia. Reading Location: [place] [id number]
== END | disposition home or self-care (01) ==
LOC: CT 13:17
PROVIDERS: PCP Physician Assistant; Referring Provider Internal Medicine Gastroenterology; Visit Provider Internal Medicine Gastroenterology
DX: K22.0 Achalasia of cardia (principal); K44.9 Diaphragmatic hernia without obstruction or gangrene; Z98.890 Other specified postprocedural states; K92.89 Other specified diseases of the digestive system
CPT/HCPCS: 74177; Q9967